=== PATIENT | female | born 1995 | race Caucasian/White ===

== ENCOUNTER 2020-05-31 08:51 | Outpatient (NON) | payer OTHER, SELFPAY ==
[2020-06-02 00:53] LABS: SARS-CoV-2 RNA PCR Negative
== END 2020-05-31 08:52 ==
PROVIDERS: Visit Provider Registered Nurse
DX: R05 Cough (principal); Z20.828 Contact with and (suspected) exposure to other viral communicable diseases
CPT/HCPCS: 87635; C9803; U0003

== ENCOUNTER 2021-02-08 11:17 | Emergency (ER) | payer OTHER, SELFPAY ==
--- NOTE | ~2021-02-08 | CT_ITS ---
EXAMINATION: CT abdomen pelvis w con INDICATION: Left flank pain TECHNIQUE: Computed tomographic images of the abdomen and pelvis were obtained after the administrati on of 100 cc of Omnipaque 350 intravenous contrast. The dose-length product (DLP) was 1676.53 mGy-cm. Automated exposure control and iterative reconstruction technique were employed. COMPARISON: None available FINDINGS: There is a 1.3 cm infrahilar nodule of the right lower lobe. There is subcarinal and right hilar lymphadenopathy. The heart size is normal. The liver, pancreas, gallbladder, and adrenal glands are normal. Hypoattenuating lesions of the spleen measuring up to 5 mm are too small to characterize but likely reflect cysts, hemangiomas, or lymphangiomas. There is a 2 mm stone of the distal left ur eter which causes mild hydroureteronephrosis. The appendix is normal. No pathologically enlarged abdo manan or pelvic lymph nodes are identified. There is no free intraperitoneal gas or evidence of bowel obstruction. The visualized osseous structures are unremarkable. IMPRESSION: 1. 2 mm stone of the distal left ureter causing mild hydroureteronephrosis. 2. Infrahilar nodule of the right lower lobe with subcarinal and right hilar lymphadenopathy, infecti ous versus malignant. Recommend follow-up with nonemergent CT of the chest. Reviewed, dictated and finalized at location A. IMPRESSION: 1. 2 mm stone of the distal left ureter causing mild hydroureteronephrosis. 2. Infrahilar nodule of the right lower lobe with subcarinal and right hilar ly mphadenopathy, infectious versus malignant. Recommend follow-up with nonemergen t CT of the chest.
[2021-02-08 11:21] VITALS: BP 155/84; PULSE 74; RESP 20; TEMP 36.8; O2SAT 98
[2021-02-08 11:47] LABS: Basophils Absolute Auto 0.1 K/mm3 (0.0-0.1); Basophils Percent Auto 0.4 % (0.2-1.2); Eosinophils Absolute Auto 0.3 K/mm3 (0-0.3); Eosinophils Percent Auto 2.5 % (0-4.4); Hemoglobin 13.1 g/dL (12.0-15.0); Immature Granulocyte Absolute 0.05 K/mm3 (0.00-0.031); Immature Granulocyte Percent A 0.4 % (0-0.5); Lymphocytes Percent Auto 34.3 % (18.3-44.2); Mean Corpuscular Hemoglobin 26.6 pg (26-34); Mean Corpuscular Volume 83.2 fl (80-100); Mean Platelet Volume 10.3 fl (7.4-10.4); Monocytes Absolute Auto 1.2 K/mm3 (0.1-0.6); Monocytes Percent Auto 9.6 % (2.6-8.5); Neutrophils Absolute Auto 6.5 K/mm3 (1.3-6.7); Neutrophils Percent Auto 52.8 % (45.5-73.1); Platelet Count Result 355 k/mm3 (150-375); Red Blood Count 4.93 M/mm3 (4.2-5.4); White Blood Count 12.2 K/mm3 (4.5-10.0)
[2021-02-08 12:01] LABS: Anion Gap 12 mmol/L (8-16); Blood Urea Nitrogen 14 mg/dL (7-17); Calcium 9.8 mg/dL (8.4-10.2); Carbon Dioxide 18 mmol/L (22-30); Chloride 109 mmol/L (98-107); Estimated CRCL calculation 135 ml/min; Estimated Glomerular Filt Rate > 60; Glucose 105 mg/dL (65-110); Potassium 3.9 mmol/L (3.4-5.0); Sodium 139 mmol/L (137-145)
[2021-02-08] MEDS: MORPHINE SULFATE (*CRX) 4 MG/ML INJ IV PUSH ×2 (12:20→13:35)
[2021-02-08] MEDS: ONDANSETRON INJ 4 MG/2 ML VIAL IV PUSH (12:20)
[2021-02-08] MEDS: FAMOTIDINE 20 MG/2 ML VIAL IV PUSH (12:20)
[2021-02-08] MEDS: SODIUM CHLORIDE 0.9% IV 1,000 ML 999 ML IV CONT ×2 (12:20→13:44)
[2021-02-08 13:15] LABS: Add Urine Microscopic? YES; Appearance Urine Clear (Clear); Bilirubin Urine Negative (Negative); Blood Urine 1+ (Negative); Color Urine Yellow (Yellow); Glucose Urine UA Negative (Negative); Ketones Urine Negative (Negative); Leukocyte Esterase Ur Negative LEU/UL (Negative); Mucus Urine Rare /lpf; Nitrate Urine Negative (Negative); Protein Urine Negative (Negative); RBC Urine 51-75 /hpf (0-2); Squamous Epithelial Cell Urine Few /hpf (Few); Urobilinogen Urine Negative mg/dL (<2.0)
[2021-02-08 13:24] LABS: Specific Grav Ur 1.058 (1.001-1.035)
--- NOTE | 2021-02-08 14:43 | ED.ABDPAIN ---
HPI - Abdominal Pain General Chief Complaint: Abdominal Pain Stated Complaint: abdominal pain/left flank pain Time Seen by Provider: 02/08/21 11:25 Source: patient Mode of arrival: ambulatory Limitations: no limitations History of Present Illness HPI narrative: Patient is a 25-year-old female who presents with left flank pain that began abruptly today she had felt fine yesterday denies similar occurrence in the past denies any fever chills does note nausea associated with the pain which is an intense left flank pain patient notes that nothing is made it better or worse presents in an uncomfortable appearance Related Data Allergies Allergy/AdvReac Type Severity Reaction Status Date / Time No Known Allergies Allergy Verified 02/08/21 11:23 Review of Systems Review of Systems: All systems reviewed & are unremarkable except as noted in HPI and below PMFSH Social History Social History (Updated 02/08/21 @ 14:45 by Rivas Perez PA-C) Smoking status: Never smoker Gender identity (if verbalized by the patient): Female Exam Narrative: Exam Narrative: GENERAL: Well-appearing, obese, uncomfortable and in no acute distress. HEAD: Normocephalic, atraumatic. EYES: PERRLA and EOMI. ENT: Nares clear, no rhinorrhea or epistaxis. Mucous membranes moist. CHEST: Clear to auscultation. No respiratory distress. No wheezes rales or rhonchi HEART: Regular rate and rhythm. No murmur heard. Normal peripheral pulses. ABDOMEN: Soft, nontender, nondistended EXTREMITIES: Normal range of motion. No edema. SKIN: Warm, dry, no rash. NEURO: No focal deficits. Alert and oriented x3. PSYCH: Normal mood and affect. Course Course Emergency Course: Patient presented with urolithiasis uncomfortable was medicated treated found of 2 mm stone will be discharged home with outpatient follow-up with urology felt appropriate for outpatient reevaluation given reasons to return Vital Signs Vital signs: Vital Signs Temperature 98.2 F 02/08/21 11:21 Pulse Rate 74 02/08/21 11:21 Respiratory Rate 20 02/08/21 11:21 Blood Pressure 155/84 H 02/08/21 11:21 Pulse Oximetry 98 02/08/21 11:21 Temperature 98.2 F 02/08/21 11:21 Pulse Rate 74 02/08/21 11:21 Respiratory Rate 20 02/08/21 11:21 Blood Pressure 155/84 H 02/08/21 11:21 Pulse Oximetry 98 02/08/21 11:21 MDM - Abdominal Pain MDM Narrative Medical decision making narrative: Patient with urolithiasis medicated hemodynamically stable felt appropriate for outpatient reevaluation agreeing with the plan provided with reasons to return Lab Data Result diagrams: 02/08/21 11:41 02/08/21 11:41 Labs: Lab Results 02/08/21 02/08/21 02/08/21 Range/Units 11:41 11:41 13:04 WBC 12.2 H (4.5-10.0) K/mm3 RBC 4.93 (4.2-5.4) M/mm3 Hgb 13.1 (12.0-15.0) g/dL Hct 41.0 (37.0-47.0) % MCV 83.2 (80-100) fl MCH 26.6 (26-34) pg MCHC 32.0 (32-36) g/dl RDW 14.0 (11.5-14.5) % Plt Count 355 (150-375) k/mm3 MPV 10.3 (7.4-10.4) fl Immature Gran % (Auto) 0.4 (0-0.5) % Neut % (Auto) 52.8 (45.5-73.1) % Lymph % (Auto) 34.3 (18.3-44.2) % [place] % (Auto) 9.6 H (2.6-8.5) % Eos % (Auto) 2.5 (0-4.4) % Baso % (Auto) 0.4 (0.2-1.2) % Lymph # (Auto) 4.20 H (0.9-3.2) K/mm3 [place] # (Auto) 1.2 H (0.1-0.6) K/mm3 Eos # (Auto) 0.3 (0-0.3) K/mm3 Baso # (Auto) 0.1 (0.0-0.1) K/mm3 Abs Immat Gran (auto) 0.05 H (0.00-0.031) K/mm3 Absolute Neuts (auto) 6.5 (1.3-6.7) K/mm3 Absolute Nucleated RBC 0.0 (0.0-0.012) K/mm3 Nucleated RBC % 0.0 (0.0-0.2) % Sodium 139 (137-145) mmol/L Potassium 3.9 (3.4-5.0) mmol/L Chloride 109 H (98-107) mmol/L Carbon Dioxide 18 L (22-30) mmol/L Anion Gap 12 (8-16) mmol/L BUN 14 (7-17) mg/dL Creatinine 0.80 (0.7-1.0) mg/dL Estim Creat Clear Calc 135 ml/min Estimated GFR > 60 (59 - ) Glucose 105 (6
[2021-02-08 15:08] VITALS: BP 142/86; PULSE 92; RESP 18; O2SAT 98
--- NOTE | 2021-02-24 15:02 | PC.NURSE ---
LATE ENTRY This note is being entered to document information to the patient's record. The following information was omitted on [02/08/21], by [Manuela Coffey RN]. [facility] stop time 1545, 100ml infused
== END 2021-02-08 15:10 | disposition home or self-care (01) ==
PROVIDERS: Emergency Provider Emergency Medicine; PCP Registered Nurse
DX: N13.2 Hydronephrosis with renal and ureteral calculous obstruction (principal)
CPT/HCPCS: 36415; 74177; 80048; 81001; 81025; 85025; 87086; 96374; 96375; 96376; 99284; J0131; J2270; J2405; J7030; Q9967

== ENCOUNTER 2021-02-27 13:17 | Outpatient (CLI) | payer OTHER, SELFPAY ==
--- NOTE | ~2021-02-27 | CT_ITS ---
EXAMINATION: 1. CT abdomen pelvis wo con 2. CT diagnostic chest w con DATE: 02/27/2021 14:23 INDICATION: Left ureteral stone. Right lung nodule. TECHNIQUE: Computed tomography (CT) of the chest was performed with 100 mL Omnipaque [address] of the abdomen and pelvis was performed without intravenous contrast. Automated exposur e control and iterative reconstruction technique were employed. The dose-length product was 1972 mGy- cm. COMPARISON: CT abdomen and pelvis 02/08/2021 FINDINGS: CT CHEST: There are groundglass opacities and nodules in mediobasal segment right lower lobe. No pleu ral effusion. The heart size is normal. No pericardial effusion. There is right hilar and subcarinal lymphadenopathy. For example, a right hilar node measures 2.8 x 2.1 cm. There is mild thoracic spondy losis. CT ABDOMEN AND PELVIS: The liver, gallbladder, spleen, pancreas, adrenal glands, and kidneys are norm al. There is no urolithiasis. There are no dilated loops of bowel. The appendix is normal. There are no pathologically enlarged lymph nodes. There is no free intraperitoneal fluid. 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 IMPRESSION: 1. Stable groundglass opacities and nodules in mediobasal segment right lower lobe, consistent with p neumonia. 2. Stable right hilar and subcarinal lymphadenopathy, which may be reactive lymphadenopathy or less l ikely malignancy. Consider noncontrast chest CT in 3 months. 3. No urolithiasis. Reviewed, dictated and finalized at location A. IMPRESSION: 1. Stable groundglass opacities and nodules in mediobasal segment right lower l obe, consistent with pneumonia. 2. Stable right hilar and subcarinal lymphadenopathy, which may be reactive lym phadenopathy or less likely malignancy. Consider noncontrast chest CT in 3 alek hs. 3. No urolithiasis.
== END 2021-02-27 13:18 ==
PROVIDERS: PCP Registered Nurse; Visit Provider Nurse Practitioner Adult Health
DX: N20.1 Calculus of ureter (principal); R91.1 Solitary pulmonary nodule; M47.814 Spondylosis without myelopathy or radiculopathy, thoracic region
CPT/HCPCS: 71260; 74176; Q9967

== ENCOUNTER 2021-03-22 17:16 | Emergency (ER) | payer OTHER, SELFPAY ==
--- NOTE | ~2021-03-22 | CT_ITS ---
EXAMINATION: CT abdomen pelvis w con DATE: 03/22/2021 18:39 INDICATION: Right lower quadrant abdominal pain TECHNIQUE: Computed tomography (CT) of the abdomen and pelvis was performed with 100 cc Omnipaque 350 intravenous contrast. Automated exposure control and iterative reconstruction technique were employe d. Exam dose: 1522.06 mGy-cm total exam DLP. COMPARISON: 02/27/2021 and 02/08/2021 CT abdomen pelvis FINDINGS: Stable 8 mm right lower lobe nodule and reticulonodular medial basilar right lower lobe inf iltrate since 02/08/2021. The lung bases are otherwise clear. Normal heart size. No pericardial or pleural effusion. The liver, gallbladder, bile ducts, pancreas and pancreatic duct are unremarkable. Borderline splenomegaly. Normal morphology of the adrenal glands. No renal mass lesion. There is incomplete rotation of the kidneys, the renal pelves directed anterior ly. No urinary tract calculus or hydroureteronephrosis. Normal caliber of the abdominal aorta. No intraperitoneal or retroperitoneal or pelvic mass lesion or adenopathy or ascites. The urinary bladder is relatively evacuated, essentially unremarkable. The uterus and adnexal areas a ppear normal. No evidence of appendicitis. No bowel obstruction, bowel wall thickening, pneumatosis or intraperiton eal free air. Small fat-containing umbilical hernia. Right L5 pars interarticularis defect. No suspicious osteolytic or osteoblastic lesions. IMPRESSION: No evidence of appendicitis Borderline splenomegaly Right L5 pars interarticularis defect Stable 8 mm right lower lobe nodule and reticulonodular medial basilar right lower lobe infiltrates s trina 02/08/2021. Reviewed, dictated and finalized at Location [facility]. Reviewed, dictated and finalized at location A. IMPRESSION: No evidence of appendicitis Borderline splenomegaly Right L5 pars interarticularis defect Stable 8 mm right lower lobe nodule and reticulonodular medial basilar right lo wer lobe infiltrates since 02/08/2021.
[2021-03-22 17:17] VITALS: BP 155/88; PULSE 73; RESP 18; TEMP 36.6; O2SAT 100
[2021-03-22 17:32] LABS: Basophils Percent Auto 0.3 % (0.2-1.2); Eosinophils Absolute Auto 0.2 K/mm3 (0-0.3); Eosinophils Percent Auto 1.6 % (0-4.4); Hematocrit 39.7 % (37.0-47.0); Hemoglobin 13.1 g/dL (12.0-15.0); Immature Granulocyte Absolute 0.02 K/mm3 (0.00-0.031); Immature Granulocyte Percent A 0.2 % (0-0.5); Lymphocytes Absolute Auto 2.51 K/mm3 (0.9-3.2); Lymphocytes Percent Auto 23.8 % (18.3-44.2); Mean Corpuscular Hemoglobin 27.1 pg (26-34); Mean Platelet Volume 10.5 fl (7.4-10.4); Monocytes Absolute Auto 1.1 K/mm3 (0.1-0.6); Neutrophils Absolute Auto 6.8 K/mm3 (1.3-6.7); Neutrophils Percent Auto 64.1 % (45.5-73.1); Platelet Count Result 282 k/mm3 (150-375); Red Blood Count 4.84 M/mm3 (4.2-5.4); Red Cell Distribution Width 13.7 % (11.5-14.5); White Blood Count 10.5 K/mm3 (4.5-10.0)
[2021-03-22 17:45] LABS: Alanine Aminotransferase 29 U/L (4-35); Albumin Level 4.2 g/dL (3.5-5.1); Alkaline Phosphatase 122 U/L (38-126); Anion Gap 10 mmol/L (8-16); Aspartate Amino Transferase 26 U/L (14-36); Bilirubin,Total 0.4 mg/dL (0.2-1.3); Blood Urea Nitrogen 12 mg/dL (7-17); Calcium 9.4 mg/dL (8.4-10.2); Carbon Dioxide 19 mmol/L (22-30); Chloride 111 mmol/L (98-107); Estimated CRCL calculation 159 ml/min; Estimated Glomerular Filt Rate > 60; Glucose 103 mg/dL (65-110); Lipase 55 U/L (23-300); Potassium 3.8 mmol/L (3.4-5.0); Sodium 140 mmol/L (137-145)
[2021-03-22 18:25] LABS: Add Urine Microscopic? YES; Appearance Urine Cloudy (Clear); Bilirubin Urine Negative (Negative); Blood Urine Negative (Negative); Color Urine Yellow (Yellow); Glucose Urine UA Negative (Negative); Ketones Urine Negative (Negative); Leukocyte Esterase Ur Trace LEU/UL (Negative); Nitrate Urine Negative (Negative); Protein Urine Negative (Negative); Urobilinogen Urine Negative mg/dL (<2.0)
--- NOTE | 2021-03-22 18:26 | ED.ABDPAIN ---
HPI - Abdominal Pain General Chief Complaint: Abdominal Pain Stated Complaint: right side pain Time Seen by Provider: 03/22/21 17:58 Source: patient Mode of arrival: ambulatory Limitations: no limitations History of Present Illness HPI narrative: Patient is a 25-year-old female complaining of right upper quadrant pain, radiating to right flank, 7 out of 10 sharp, started last night. Patient denies any chest pain, shortness of breath, nausea, vomiting, diarrhea, fever, chills or urinary symptoms. Patient does admit to history of kidney stones but states that this pain is different. Related Data Allergies Allergy/AdvReac Type Severity Reaction Status Date / Time No Known Allergies Allergy Verified 03/22/21 17:35 Review of Systems Review of Systems: All systems reviewed & are unremarkable except as noted in HPI and below Constitutional: Constitutional: Denies body ache(s), Denies chills, Denies excessive sweating, Denies fatigue, Denies fever(s), Denies headache(s), Denies lethargy, Denies malaise, Denies weakness and Denies weight loss Eyes: Eyes: Denies blurry vision, Denies change in vision and Denies loss of vision ENT: Denies dizziness, Denies ear discharge, Denies headache(s), Denies lip swelling, Denies epistaxis, Denies nasal congestion, Denies neck pain, Denies throat swelling and Denies tongue swelling Cardiovascular: Cardiovascular: Denies chest pain, Denies chest pain at rest, Denies chest pain with activity, Denies diaphoresis, Denies rapid heart rate, Denies edema, Denies irregular heart rhythm, Denies lightheadedness, Denies palpitations, Denies dyspnea and Denies dyspnea on exertion Respiratory: Respiratory: Denies chest congestion, Denies cough, Denies hemoptysis, Denies dyspnea and Denies dyspnea on exertion Gastrointestinal: Gastrointestinal: Denies melena, Denies hematochezia, Denies diarrhea, Denies nausea, Denies vomiting and Denies hematemesis Musculoskeletal: Musculoskeletal: Denies abnormal gait, Denies deformity, Denies joint swelling, Denies limited range of motion, Denies neck pain and Denies numbness Neurologic: Denies Abnormal speech present, Denies abnormal gait, Denies confusion, Denies dizziness, Denies headache(s), Denies focal weakness, Denies loss of vision, Denies numbness, Denies Other visual disturbances, Denies Sensory deficit (Neuro) and Denies weakness Psychiatric: Psychiatric: Denies confusion, Denies depression, Denies auditory hallucinations, Denies homicidal ideation and Denies suicidal ideation Endocrine: Endocrine: Denies cold intolerance, Denies excessive sweating, Denies fatigue, Denies heat intolerance and Denies palpitations Hematologic/Lymphatic: Hematologic/Lymphatic: Denies easy bleeding and Denies easy bruising Allergic/Immunologic: Allergic/Immunologic: Denies lip swelling, Denies throat swelling and Denies tongue swelling [facility] Social History Social History (Updated 02/08/21 @ 14:45 by Rivas Perez PA-C) Smoking status: Never smoker Gender identity (if verbalized by the patient): Female Comments Past medical history: Idiopathic intracranial hypertension Family history: Hypertension Social history: Non-smoker no EtOH or drug use Exam Const: General: cooperative, healthy appearing, comfortable, no acute distress, well developed, alert and awake; No confusion Orientation/consciousness: oriented to person, oriented to place, oriented to time, patient oriented x3 and No confusion Limitations: no limitations HENMT: Head: normal to inspection, normocephalic and atraumatic Ears: hearing grossly normal bilaterally, TM normal on the right and TM normal on the left General nose exam: Normal external nose present, Normal nares present and No nasal discharge present Face and sinus: normal facial exam Mouth: Yes Normal oral and palatal mucosa present, Yes lip normal, Yes tongue normal and Yes oropharynx normal Throat: posterior oropharynx normal, tonsils normal and uvula
--- NOTE | 2021-03-22 18:31 | PC.NURSE ---
Pt off floor to CT scan
[2021-03-22] MEDS: KETOROLAC 30 MG/ML VIAL (*BKC) IV PUSH (18:52)
[2021-03-22 20:25] VITALS: BP 110/51; PULSE 71; RESP 16; O2SAT 100
[2021-03-22] MEDS: HYDROcodone/acetaminophen (*CRX) 5-325 MG TABLET 1 TAB PO (21:04)
[2021-03-22 21:10] VITALS: BP 131/76; PULSE 72; RESP 18; TEMP 36.6; O2SAT 99
== END 2021-03-22 21:18 | disposition home or self-care (01) ==
PROVIDERS: Emergency Provider Emergency Medicine; PCP Registered Nurse
DX: R10.11 Right upper quadrant pain (principal); G93.2 Benign intracranial hypertension; R16.1 Splenomegaly, not elsewhere classified; R91.8 Other nonspecific abnormal finding of lung field
CPT/HCPCS: 36415; 74177; 80053; 81001; 81025; 83690; 85025; 96374; 99284; A9270; J1885; Q9967

== ENCOUNTER 2021-03-24 08:08 | Emergency (ER) | payer OTHER, SELFPAY ==
--- NOTE | ~2021-03-24 | XR_ITS ---
EXAMINATION: XR chest 1V portable EXAM DATE: 03/24/2021 08:59 INDICATION: Right upper quadrant pain . TECHNIQUE: Portable AP frontal chest x-ray was obtained. Comparison is made to prior examination from 01/22/2012. FINDINGS: The lungs are clear. There are no pleural effusions. Cardiomediastinal silhouette is norm al. There is no pneumothorax suspected. The bones and soft tissues are unremarkable. IMPRESSION: Normal chest x-ray exam. Reviewed, dictated and finalized at location D. IMPRESSION: Normal chest x-ray exam.
--- NOTE | ~2021-03-24 | US_ITS ---
EXAMINATION: US abdomen limited DATE: 03/24/2021 09:20 INDICATION: Right upper quadrant pain TECHNIQUE: Multiple grayscale and Doppler ultrasound images of the abdomen were obtained. COMPARISON: CT, 03/22/2021 FINDINGS: Bowel gas obscures visualization of the pancreas. The visualized portions of the pancreas a re unremarkable. The liver is normal with normal echogenicity and echotexture. No surface nodularity. Normal hepatopetal flow in the main portal vein. The gallbladder is normal with no abnormal wall thi ckening, pericholecystic fluid or stones. The normal common bile duct measures 5 mm. Sonographic Murp hy sign is positive. IMPRESSION: 1. Positive sonographic Hartley sign without additional findings of cholecystitis. Reviewed, dictated and finalized at location A. IMPRESSION: 1. Positive sonographic Hartley sign without additional findings of cholecystiti s.
--- NOTE | ~2021-03-24 | CT_ITS ---
EXAMINATION: CT abdomen pelvis w con EXAM DATE: 03/24/2021 11:00 INDICATION: Right upper abdominal pain . Pain has progressed since Tuesday. TECHNIQUE: Spiral CT of the abdomen and pelvis was performed following intravenous injection of 100 m L Omnipaque 350. Axial, coronal and sagittal images of the abdomen and pelvis were reviewed. The do se-length product (DLP) for this examination was 1694.59 mGy-cm. The exposure was tailored according to patient size (auto mA exposure control), and iterative reconstruction (ASIR) was used as addition al dose reduction technique. Comparison is made to prior examination from 02/27/2021. FINDINGS: The liver, spleen, adrenal glands and pancreas are unremarkable. Gallbladder is unremarkab le. No biliary obstruction. Portal and splenic veins are patent. Kidneys enhance symmetrically. T here is no hydronephrosis. The uterus is unremarkable. The bladder is unremarkable. There is no retroperitoneal or pelvic lymphadenopathy. The appendix is normal. The stomach and small bowel are unremarkable. There is expected amount of c olonic stool. No free intraperitoneal gas. The heart is normal in size. There are no pericardial or pleural effusions. 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 Again is pathologically enlarged right infrahilar lymph node measuring 1.9 x 2.2 cm. Could be reactiv e or sarcoidosis but lymphoma or other malignancy not excludable. Small amount of infrahilar airspace disease again noted. Recommend 3 month follow-up chest CT. IMPRESSION: 1. Persistent pathologically enlarged right infrahilar lymph. Could be reactive or sarcoidosis but 3 month follow-up indicated. Small amount of right infrahilar airspace disease unchanged. 2. No acute intra-abdominal findings. Reviewed, dictated and finalized at location B. IMPRESSION: 1. Persistent pathologically enlarged right infrahilar lymph. Could be reactiv e or sarcoidosis but 3 month follow-up indicated. Small amount of right infrahi lar airspace disease unchanged. 2. No acute intra-abdominal findings.
[2021-03-24 08:10] VITALS: BP 157/95; PULSE 92; RESP 18; TEMP 36.3; O2SAT 99
--- NOTE | 2021-03-24 08:51 | ED.ABDPAIN ---
HPI - Abdominal Pain General Chief Complaint: Abdominal Pain Stated Complaint: Abd Pain Time Seen by Provider: 03/24/21 08:24 Source: patient and family Mode of arrival: ambulatory Limitations: no limitations History of Present Illness HPI narrative: Patient is 25 years old white female presented to the ED with right upper quadrant pain started 4 days ago, work-up in our emergency room was insignificant for any acute abnormality. CAT scan showed no evidence of intra-abdominal abnormality at that time. Patient reports the pain is still there, worse with deep breathing,, get better with certain position like sitting up in upright position. Patient denies any fever, chills, vomiting, diarrhea, constipation, urinary symptoms, radiation of pain, shortness of breath or chest pain. Patient reports dry heaves Related Data Allergies Allergy/AdvReac Type Severity Reaction Status Date / Time No Known Allergies Allergy Verified 03/24/21 08:19 Review of Systems Review of Systems: CONSTITUTIONAL: Denies fever, chills, or sweats. EYES: Denies visual changes, redness, or discharge. ENT: Denies rhinorrhea, congestion, sore throat, or otalgia. CARDIOVASCULAR: Denies chest pain, palpitations, or edema. RESPIRATORY: Denies cough or dyspnea. GASTROINTESTINAL: Denies abdominal pain, nausea, vomiting, or diarrhea. GENITOURINARY: Denies dysuria or hematuria. SKIN: Denies rash or itching. MUSCULOSKELETAL: Denies back pain, joint pain, or myalgia. NEUROLOGIC: Denies headache, numbness, or weakness. PSYCHIATRIC: Denies anxiety or depression. PMFSH Social History Social History Smoking status: Never smoker Gender identity (if verbalized by the patient): Female Exam Narrative: General appearance: Well-developed, well-nourished Skin: Normal color Head: Normocephalic, nontraumatic Eyes: Clear conjunctiva ENT: Oropharynx normal, ears normal, nose normal Neck: Supple, nontender Chest and respiratory: Airway patent, no respiratory distress, no accessory muscle use Heart: Regular rate/rhythm Abdomen: Soft, diffuse tenderness epigastric and right upper quadrant area, no bruises, no swelling no rash Vascular: Normal peripheral pulses, normal capillary refill. Musculoskeletal: Normal range of motion, nontender back Neurologic: Alert and oriented ?3, [employer] is normal as tested, no gross motor deficit Course Course Emergency Course: Improving Vital Signs Vital signs: Vital Signs Temperature 36.3 C L 03/24/21 08:10 Pulse Rate 92 03/24/21 08:10 Respiratory Rate 18 03/24/21 08:10 Blood Pressure 157/95 H 03/24/21 08:10 Pulse Oximetry 99 03/24/21 08:10 Temperature 36.3 C L 03/24/21 08:10 Pulse Rate 92 03/24/21 08:10 Respiratory Rate 18 03/24/21 08:10 Blood Pressure 157/95 H 03/24/21 08:10 Pulse Oximetry 99 03/24/21 08:10 MDM - Abdominal Pain MDM Narrative Medical decision making narrative: Patient presents with right upper quadrant pain. My concern is right lower lobe pneumonia, pulmonary embolism, cholecystitis, diverticulitis, constipation, pyelonephritis,. My Labs, ordered, gallbladder ultrasound ordered. Further plan to follow. Work-up showed no acute abnormality to explain patient condition. Musculoskeletal pain is very concerning. I plan to discharge patient on Flexeril and naproxen. Also to recommend patient follow-up with her family physician. The possibility of sarcoidosis. Differential Diagnosis Differential diagnosis: Likely calculus of kidney, constipation, diverticulitis and pancreatitis Lab Data Result diagrams: 03/24/21 09:02 03/24/21 09:02
--- NOTE | 2021-03-24 09:00 | PC.NURSE ---
pt reporting she peed before I came in . unable to provide urine specimen at this time.
[2021-03-24 09:10] LABS: Basophils Percent Auto 0.3 % (0.2-1.2); Eosinophils Absolute Auto 0.1 K/mm3 (0-0.3); Eosinophils Percent Auto 1.2 % (0-4.4); Hematocrit 42.1 % (37.0-47.0); Hemoglobin 13.6 g/dL (12.0-15.0); Immature Granulocyte Absolute 0.04 K/mm3 (0.00-0.031); Immature Granulocyte Percent A 0.4 % (0-0.5); Lymphocytes Absolute Auto 2.16 K/mm3 (0.9-3.2); Lymphocytes Percent Auto 20.5 % (18.3-44.2); Mean Corpuscular HGB Conc 32.3 g/dl (32-36); Mean Corpuscular Hemoglobin 27.3 pg (26-34); Mean Corpuscular Volume 84.5 fl (80-100); Mean Platelet Volume 10.6 fl (7.4-10.4); Monocytes Absolute Auto 0.9 K/mm3 (0.1-0.6); Monocytes Percent Auto 8.3 % (2.6-8.5); Neutrophils Absolute Auto 7.3 K/mm3 (1.3-6.7); Neutrophils Percent Auto 69.3 % (45.5-73.1); Platelet Count Result 290 k/mm3 (150-375); Red Blood Count 4.98 M/mm3 (4.2-5.4); Red Cell Distribution Width 13.5 % (11.5-14.5); White Blood Count 10.6 K/mm3 (4.5-10.0)
[2021-03-24 09:25] LABS: Alanine Aminotransferase 25 U/L (4-35); Albumin Level 4.5 g/dL (3.5-5.1); Alkaline Phosphatase 132 U/L (38-126); Anion Gap 10 mmol/L (8-16); Aspartate Amino Transferase 27 U/L (14-36); Bilirubin,Total 0.6 mg/dL (0.2-1.3); Blood Urea Nitrogen 12 mg/dL (7-17); Calcium 9.4 mg/dL (8.4-10.2); Carbon Dioxide 20 mmol/L (22-30); Chloride 110 mmol/L (98-107); D Dimer 0.45 ug/mL (<0.48); Estimated CRCL calculation 138 ml/min; Estimated Glomerular Filt Rate > 60; Glucose 105 mg/dL (65-110); Lipase 54 U/L (23-300); Sodium 140 mmol/L (137-145)
[2021-03-24] MEDS: ONDANSETRON INJ 4 MG/2 ML VIAL IV PUSH (09:29)
[2021-03-24] MEDS: SODIUM CHLORIDE 0.9% IV 1,000 ML 999 ML IV CONT (09:29)
[2021-03-24] MEDS: HYDROmorphone HCL INJ (*CRX) 1 MG/ML SYR 0.5 MG IV PUSH (09:29)
[2021-03-24 11:29] LABS: Add Urine Microscopic? NO; Appearance Urine Clear (Clear); Bilirubin Urine Negative (Negative); Blood Urine Negative (Negative); Color Urine Yellow (Yellow); Glucose Urine UA Negative (Negative); Ketones Urine Negative (Negative); Leukocyte Esterase Ur Negative LEU/UL (Negative); Nitrate Urine Negative (Negative); Protein Urine Negative (Negative); Specific Grav Ur 1.017 (1.001-1.035); Urobilinogen Urine Negative mg/dL (<2.0)
[2021-03-24] MEDS: KETOROLAC 30 MG/ML VIAL (*BKC) IV PUSH (12:07)
[2021-03-24 12:16] VITALS: BP 125/85; PULSE 80; RESP 16; O2SAT 100
== END 2021-03-24 12:17 | disposition home or self-care (01) ==
PROVIDERS: Emergency Provider Emergency Medicine; PCP Registered Nurse
DX: R91.1 Solitary pulmonary nodule (principal); R10.9 Unspecified abdominal pain
CPT/HCPCS: 36415; 71045; 74177; 76705; 80053; 81003; 81025; 83690; 85025; 85380; 96361; 96374; 96375; 99284; J1170; J1885; J2405; J7030; Q9967

== ENCOUNTER → 2021-07-17 00:38 | Outpatient (CLI) | payer OTHER, SELFPAY ==
[2021-07-17 19:19] LABS: SARS-CoV-2 RNA PCR Positive
== END ==
PROVIDERS: PCP Registered Nurse; Visit Provider Registered Nurse
DX: U07.1 COVID-19 (principal)
CPT/HCPCS: C9803; U0003; U0005

== ENCOUNTER 2021-08-11 15:24 | Outpatient (CLI) | payer OTHER, SELFPAY ==
--- NOTE | ~2021-08-11 | US_ITS ---
EXAMINATION: US OB <=14 wk fetus w TV DATE: 08/11/2021 16:31 INDICATION: Viability. TECHNIQUE: Real-time transabdominal and transvaginal pelvic ultrasound was performed. COMPARISON: None. FINDINGS: TRANSABDOMINAL ULTRASOUND: The uterus measures 10.7 x 6.3 x 6.4 cm. TRANSVAGINAL ULTRASOUND: There is an intrauterine gestational sac. A yolk sac is identified. The fet al crown rump length measures 2.7 cm, which correlates with an estimated gestational age of 9 weeks a nd 4 day(s) (+/-) 6 day(s). heart motion is identified measuring 162 beats per minute (bpm) by M-mode Doppler. The right ovary measures 3.0 x 1.9 x 3.7 cm. The left ovary is not visualized. There is no free fluid in the pelvis. IMPRESSION: 1. Single living intrauterine gestation with estimated date of delivery of 03/12/22. Reviewed, dictated and finalized at location A. COREMAKER IMPRESSION: 1. Single living intrauterine gestation with estimated date of delivery of 02/22 04/15.
== END 2021-08-11 15:25 | disposition home or self-care (01) ==
LOC: ANHIMG 15:29
PROVIDERS: PCP Registered Nurse; Visit Provider Nurse Practitioner
DX: Z36.9 Encounter for antenatal screening, unspecified (principal); Z3A.00 Weeks of gestation of pregnancy not specified
CPT/HCPCS: 76801; 76817

== ENCOUNTER 2021-09-28 08:21 | Outpatient (CLI) | payer OTHER, SELFPAY ==
--- NOTE | ~2021-09-28 | US_ITS ---
EXAMINATION: US right upper quadrant DATE: 09/28/2021 08:48 INDICATION: Right upper quadrant pain TECHNIQUE: Multiple grayscale and Doppler ultrasound images of the abdomen were obtained. COMPARISON: CT, 03/24/2021 FINDINGS: Bowel gas obscures visualization of the pancreas. The visualized portions of the pancreas a re unremarkable. The liver is normal with normal echogenicity and echotexture. No surface nodularity. Normal hepatopetal flow in the main portal vein. The gallbladder is normal with no abnormal wall thi ckening, pericholecystic fluid or stones. The normal common bile duct measures 3 mm. There was no son ographic Hartley sign. IMPRESSION: 1. Normal sonographic study of the gallbladder. Reviewed, dictated and finalized at location B. IC SPEAKING COACH
== END 2021-09-28 08:22 | disposition home or self-care (01) ==
PROVIDERS: PCP Registered Nurse; Visit Provider Registered Nurse
DX: R10.11 Right upper quadrant pain (principal)
CPT/HCPCS: 76705

== ENCOUNTER 2021-10-05 15:18 | Outpatient (CLI) | payer OTHER, SELFPAY ==
--- NOTE | ~2021-10-05 | US_ITS ---
EXAMINATION: US OB /maternal detail DATE: 10/05/2021 16:25 INDICATION: survey TECHNIQUE: Multiple obstetric sonographic images performed. FINDINGS: Comparison to multiple prior studies sequentially, with oldest reviewed study dated 022. There is a single living fetus in variable presentation. The placenta is posterior without placenta previa. Amniotic fluid volume is normal. cardiac activity and movement is noted with a heart rate of 151 beats per minute. survey is limited for evaluation of the cerebellum, heart, nuchal fold, upper lobe and bladder. The following anatomy was identified as normal: 3 vessel cord cord insertion kidneys stomach spine diaphragm ventricles cisterna magna The following biometric data were obtained: BPD: 37mm corresponds to gestational age 17 weeks 2 days. Head circumference: 140 mm corresponds to gestational age 17 weeks 2 days. Abdominal circumference: 117 mm corresponds to gestational age 17 weeks 3 days. Femur length: 24 mm corresponds to gestational age 17 weeks 2 days. Head circumference to abdominal circumference ratio: 1.19 (normal range for expected gestational age is 1.07-1.29). Estimated weight: 192 grams +/- 29 grams using Hadlock method. IMPRESSION: 1: Single living intrauterine with an estimated gestational age of 17weeks 3days by initial ultrasound measurements, with an EDC of 03/12/2022 in variable presentation. 2. Limited survey for evaluation of the cerebellum, nuchal fold, upper lip, heart and bladder. The remainder of the survey is unremarkable. Recommend attention to the structures on follow-up exam ination.. Reviewed, dictated and finalized at location B. IMPRESSION: 1: Single living intrauterine with an estimated gestational age of 17 weeks 3days by initial ultrasound measurements, with an EDC of 03/12/2022 in melvi iable presentation. 2. Limited survey for evaluation of the cerebellum, nuchal fold, upper l ip, heart and bladder. The remainder of the survey is unremarkable. Recommend a ttention to the structures on follow-up examination..
== END 2021-10-05 15:19 ==
PROVIDERS: Visit Provider Obstetrics & Gynecology Gynecology
DX: Z36.9 Encounter for antenatal screening, unspecified (principal); Z3A.17 17 weeks gestation of pregnancy
CPT/HCPCS: 76805

== ENCOUNTER 2021-11-02 16:13 | Outpatient (CLI) | payer OTHER, SELFPAY ==
--- NOTE | ~2021-11-02 | US_ITS ---
EXAMINATION: US OB limited DATE: 11/02/2021 17:56 INDICATION: Incomplete anatomic survey during second trimester TECHNIQUE: Real-time ultrasound of the pelvis was performed. The interpreting radiologist was not pre sent for the study. COMPARISON: 10/05/2021 FINDINGS: There is a single living fetus in breech presentation. The placenta is posterior. car diac activity and movement are noted. heart rate is 154 beats per minute (bpm). The amnio tic fluid index is subjectively normal. The cerebellum, cisterna magna, nuchal fold, bladder, and upp er lip appear normal. A four-chamber heart is noted. IMPRESSION: 1. Single living fetus in breech presentation. 2. Remaining visualized anatomy appears normal. Reviewed, dictated and finalized at location A.
== END 2021-11-02 16:14 | disposition home or self-care (01) ==
PROVIDERS: PCP Registered Nurse; Visit Provider Obstetrics & Gynecology Gynecology
DX: Z36.9 Encounter for antenatal screening, unspecified (principal); Z3A.00 Weeks of gestation of pregnancy not specified
CPT/HCPCS: 76815

== ENCOUNTER 2021-12-09 11:52 | Outpatient (CLI) | payer OTHER, SELFPAY ==
--- NOTE | ~2021-12-09 | US_ITS ---
EXAMINATION: US venous doppler [facility] DATE: 12/09/2021 12:31 INDICATION: Left lower limb pain. TECHNIQUE: Grayscale ultrasound images without and with compression and Doppler ultrasound images of the bilateral lower extremity veins were obtained. COMPARISON: None. FINDINGS: The visualized portions of right common femoral vein, profunda (deep) femoral vein, femoral vein, pop liteal vein, peroneal veins, posterior tibial veins, and greater saphenous vein outflow are patent. The visualized portions of left common femoral vein, profunda femoral vein, femoral vein, popliteal v ein, peroneal veins, posterior tibial veins, and greater saphenous vein outflow are patent. IMPRESSION: 1. No deep venous thrombosis. Reviewed, dictated and finalized at location B.
== END 2021-12-09 11:53 | disposition home or self-care (01) ==
LOC: ANHIMG 11:56
PROVIDERS: PCP Registered Nurse; Visit Provider Advanced Practice Midwife
DX: R10.32 Left lower quadrant pain (principal); R60.9 Edema, unspecified
CPT/HCPCS: 93970

== ENCOUNTER 2022-01-13 15:14 | Outpatient (CLI) | payer OTHER, SELFPAY ==
--- NOTE | ~2022-01-13 | US_ITS ---
EXAMINATION: US OB follow up DATE: 01/13/2022 16:05 INDICATION: Estimated size less than expected for estimated gestational age during third trimes ter . TECHNIQUE: Real-time ultrasound of the pelvis was performed. The interpreting radiologist was not pre sent for the study. COMPARISON: 08/11/2021 FINDINGS: There is a single living fetus in vertex presentation. The placenta is posterior. heart rate i s 132 beats per minute (bpm). The amniotic fluid index is 19.0 cm, which is normal (5th%-95%: 8.6-24 .2 cm at 32 weeks estimated gestational age). The following biometric data were obtained: BPD: 8.2 cm -> 32 weeks 6 days Head circumference: 30.9 cm -> 34 weeks 3 days Abdominal circumference: 31.2 cm -> 35 weeks 1 days Femur length: 6.3 cm -> 32 weeks 4 days These measurements are concordant. Head circumference to abdominal circumference ratio: 0.99 (normal range 0.95-1.11). Estimated weight: 2366 g (+/-) 355 g or 5 lbs. 3 oz. (+/-) 13 oz. IMPRESSION: 1. Single living fetus in vertex presentation with heart rate of 132 bpm. 2. Normal amniotic fluid index of 19.0 cm. 3. Estimated weight is >97th percentile by Hadlock criteria when 10/10/2021 is used as the estim ated date of delivery (KHADAR) based upon earliest ultrasound at this institution on 08/11/2021. Please c orrelate with clinical information or earlier ultrasounds for most accurate KHADAR. Reviewed, dictated and finalized at location B. IMPRESSION: 1. Single living fetus in vertex presentation with heart rate of 132 bpm. 2. Normal amniotic fluid index of 19.0 cm. 3. Estimated weight is >97th percentile by Hadlock criteria when 2 is used as the estimated date of delivery (KHADAR) based upon earliest ultrasoun d at this institution on 08/11/2021. Please correlate with clinical information or earlier ultrasounds for most accurate KHADAR.
== END 2022-01-13 15:15 | disposition home or self-care (01) ==
LOC: ANHIMG 15:15
PROVIDERS: PCP Registered Nurse; Visit Provider Obstetrics & Gynecology Gynecology
DX: O36.63X0 Maternal care for excessive fetal growth, third trimester, not applicable or unspecified (principal); Z3A.00 Weeks of gestation of pregnancy not specified
CPT/HCPCS: 76816

== ENCOUNTER → 2022-02-25 13:22 | Outpatient (CLI) | payer OTHER, SELFPAY ==
--- NOTE | ~2022-02-25 | US_ITS ---
EXAMINATION: US OB follow up DATE: 02/25/2022 13:54 INDICATION: Estimated size greater than expected for estimated gestational age TECHNIQUE: Real-time ultrasound of the pelvis was performed. The interpreting radiologist was not pre sent for the study. COMPARISON: None. FINDINGS: There is a single living fetus in vertex presentation. The placenta is posterior. heart rate i s 146 beats per minute (bpm). The amniotic fluid index is 20.1 cm, which is normal (5th%-95%: 7.5-3 4.4 cm at the 7 weeks estimated gestational age). The following biometric data were obtained: BPD: 9.7 cm -> 39 weeks 5 days Head circumference: 35.3 cm -> 41 weeks 2 days Abdominal circumference: 35.7 cm -> 39 weeks 4 days Femur length: 7. cm -> 438 weeks 0 days These measurements are concordant. Head circumference to abdominal circumference ratio: 0.99 (normal range 0.89-1.04). Estimated weight: 3796 g (+/-) 569 g or 8 lbs. 6 oz. (+/-) 1 lbs. 4 oz. IMPRESSION: 1. Single living fetus in vertex presentation with heart rate of 146 bpm. 2. Normal amniotic fluid index of 20.1 cm. 3. Estimated weight is 93rd percentile by Hadlock criteria when 03/12/2022 is used as the estima shannon date of delivery (KHADAR). Please correlate with clinical information or earlier ultrasounds for mos t accurate KHADAR. Reviewed, dictated and finalized at location A. IMPRESSION: 1. Single living fetus in vertex presentation with heart rate of 146 bpm. 2. Normal amniotic fluid index of 20.1 cm. 3. Estimated weight is 93rd percentile by Hadlock criteria when 03/12/2022 is used as the estimated date of delivery (KHADAR). Please correlate with clinica l information or earlier ultrasounds for most accurate KHADAR.
== END ==
PROVIDERS: PCP Registered Nurse; Visit Provider Obstetrics & Gynecology Gynecology
DX: O26.843 Uterine size-date discrepancy, third trimester (principal); Z3A.35 35 weeks gestation of pregnancy
CPT/HCPCS: 76816

== ENCOUNTER 2022-03-01 13:42 | Outpatient (RCR) | payer OTHER, SELFPAY ==
[2022-01-11 12:50] VITALS: BP 127/58; PULSE 100
[2022-01-14 16:39] VITALS: BP 131/68; PULSE 98
[2022-01-18 17:09] VITALS: BP 126/66; PULSE 89
[2022-01-22 16:29] VITALS: BP 113/53; PULSE 96
[2022-01-28 16:55] VITALS: BP 120/57; PULSE 99
[2022-02-04 17:40] VITALS: BP 136/65; PULSE 94
[2022-02-08 16:53] VITALS: BP 110/58; PULSE 102
[2022-02-15 16:14] VITALS: BP 102/43; PULSE 106
[2022-02-19 15:50] VITALS: BP 116/63; PULSE 91
[2022-02-22 16:39] VITALS: BP 125/58; PULSE 95
[2022-02-26 15:04] VITALS: BP 102/53; PULSE 86
[2022-03-01 15:13] VITALS: BP 138/64; PULSE 88
== END 2022-03-12 15:03 | disposition home or self-care (01) ==
LOC: ANHOBOP 13:42
PROVIDERS: PCP Registered Nurse; Visit Provider Obstetrics & Gynecology Gynecology
DX: O98.513 Other viral diseases complicating pregnancy, third trimester (principal); U07.1 COVID-19; Z3A.32 32 weeks gestation of pregnancy; Z3A.35 35 weeks gestation of pregnancy; Z3A.37 37 weeks gestation of pregnancy
CPT/HCPCS: 59025; J2274; J3010

== ENCOUNTER 2022-03-04 17:10 | Inpatient (IN) | payer OTHER, SELFPAY ==
[2022-03-04] VITALS (12 sets, daily range): BP systolic 120–150; BP diastolic 70–83; PULSE 84–118; RESP 18; TEMP 36.4–36.6; BMI 59.3
--- NOTE | 2022-03-04 17:36 | LDADM ---
This patient, Trish Ho, was admitted to Labor/Delivery/Recovery 106 on 03/04/22 at 17:10. Plans for labor, pain management and were discussed with patient. Patient/family oriented to hospital policies and general routines including ID bracelet, bed and alarms, visiting hours, pain management, procedures, bathroom and other care routines, personal items, smoking policy, room service/diet and guest tray routines, security routines, and visiting hours. Patient/Family are encouraged to report perceived risks to care and to ask questions if they do not understand what they are told or what they should do. See OBIX for further documentation.
[2022-03-04] MEDS: DINOPROSTONE 10 MG VAG INSERT VAGINAL (17:45)
[2022-03-04 17:46] LABS: Basophils Percent Auto 0.1 % (0.2-1.2); Eosinophils Absolute Auto 0.1 K/mm3 (0-0.3); Eosinophils Percent Auto 0.6 % (0-4.4); Hematocrit 33.5 % (37.0-47.0); Hemoglobin 10.6 g/dL (12.0-15.0); Immature Granulocyte Absolute 0.12 K/mm3 (0.00-0.031); Immature Granulocyte Percent A 0.8 % (0-0.5); Lymphocytes Absolute Auto 1.82 K/mm3 (0.9-3.2); Lymphocytes Percent Auto 12.8 % (18.3-44.2); Mean Corpuscular HGB Conc 31.6 g/dl (32-36); Mean Corpuscular Hemoglobin 25.5 pg (26-34); Mean Corpuscular Volume 80.5 fl (80-100); Mean Platelet Volume 10.3 fl (7.4-10.4); Monocytes Absolute Auto 1.3 K/mm3 (0.1-0.6); Monocytes Percent Auto 9.3 % (2.6-8.5); Neutrophils Absolute Auto 10.9 K/mm3 (1.3-6.7); Neutrophils Percent Auto 76.4 % (45.5-73.1); Platelet Count Result 317 k/mm3 (150-375); Red Blood Count 4.16 M/mm3 (4.2-5.4); White Blood Count 14.2 K/mm3 (4.5-10.0)
--- NOTE | 2022-03-04 18:49 | WPDANESEPP ---
Anes - Eval Pre Procedure Procedure: labor epidural Date/Time: 03/04/22 18:49 Surgeon: fernanda Preop Diagnosis: pain during labor Pre Op Diagnosis: iol Patient Data Age: 26 Gender: F Height: 1.7 m Weight: 172 kg Last Vital Signs Pulse 95 03/04/22 18:46 BP 132/72 03/04/22 18:46 O2 Del Method Room Air 03/04/22 17:35 Allergies Allergy/AdvReac Type Severity Reaction Status Date / Time No Known Allergies Allergy Verified 03/24/21 08:19 Home Medications Medication Instructions Recorded Confirmed Type famotidine 20 mg tablet 20 mg PO HS 02/19/22 02/19/22 History loratadine 10 mg tablet (Claritin) 10 mg PO DAILY 02/19/22 02/19/22 History prenat.vits,dodie,gan-upmn-dqwlq 1 tablet PO HS 02/19/22 02/19/22 History acetazolamide 250 mg tablet 500 mg PO DAILY 03/04/22 03/04/22 History Laboratory Tests 03/04/22 03/04/22 03/04/22 17:39 17:39 17:39 WBC 14.2 K/mm3 H K/mm3 (4.5-10.0) RBC 4.16 M/mm3 L M/mm3 (4.2-5.4) Hgb 10.6 g/dL L D g/dL (12.0-15.0) Hct 33.5 % L % (37.0-47.0) MCV 80.5 fl fl (80-100) MCH 25.5 pg L pg (26-34) MCHC 31.6 g/dl L g/dl (32-36) RDW 16.0 % H % (11.5-14.5) Plt Count 317 k/mm3 k/mm3 (150-375) MPV 10.3 fl fl (7.4-10.4) Immature Gran % (Auto) 0.8 % H % (0-0.5) Neut % (Auto) 76.4 % H % (45.5-73.1) Lymph % (Auto) 12.8 % L % (18.3-44.2) [place] % (Auto) 9.3 % H % (2.6-8.5) Eos % (Auto) 0.6 % % (0-4.4) Baso % (Auto) 0.1 % L % (0.2-1.2) Lymph # (Auto) 1.82 K/mm3 K/mm3 (0.9-3.2) [place] # (Auto) 1.3 K/mm3 H K/mm3 (0.1-0.6) Eos # (Auto) 0.1 K/mm3 K/mm3 (0-0.3) Baso # (Auto) 0.0 K/mm3 K/mm3 (0.0-0.1) Abs Immat Gran (auto) 0.12 K/mm3 H K/mm3 (0.00-0.031) Absolute Neuts (auto) 10.9 K/mm3 H K/mm3 (1.3-6.7) Absolute Nucleated RBC 0.0 K/mm3 K/mm3 (0.0-0.012) Nucleated RBC % 0.0 % % (0.0-0.2) RPR Pending Blood Type A Positive Antibody Screen Negative Patient hx anesthesia problems: none Family hx anesthesia problems: none Results Review: All pre-operative results and documents have been reviewed as part of the pre-operative evaluation. [facility] Past Medical History Medical History (Updated 03/04/22 @ 18:49 by Debra Bautista CRNA) IUP (intrauterine ), incidental Morbid obesity with BMI of 50.0-59.9, adult Family History Family History (Updated 02/19/22 @ 15:58 by Apryl Meyers, MARU) Father Hypertension Lung cancer Father No problems noted. Grandparent Lung cancer Diabetes mellitus Grandparent Diabetes mellitus Grandparent Breast cancer Social History Social History Smoking status: Never smoker Substance use: never Gender identity (if verbalized by the patient): Female Spiritual care concerns: Yes (requests environmental services associate to visit) Exam Day of Procedure 03/04/22 18:49
[2022-03-05] VITALS (274 sets, daily range): BP systolic 103–170; BP diastolic 47–100; PULSE 73–123; TEMP 36.3–37.1; O2SAT 92–100
[2022-03-05] MEDS: fentaNYL CITRATE INJ (*CRX) 100 MCG/2 ML VIAL IV PUSH (02:15)
[2022-03-05] MEDS: LACTATED RINGERS 1,000 ML 125 ML IV CONT ×2 (03:16→07:04)
[2022-03-05 06:53] LABS: Rapid Plasma Reagin Non-Reactive (NonReactive)
[2022-03-05] MEDS: OXYTOCIN 30 UNITS/NS 500 ML 30 UNITS/500 ML BAG 6 UNITS IV CONT (07:04)
--- NOTE | 2022-03-05 07:34 | WPDOBADMIT ---
Obstetrics - Admit Note Admission Note: record reviewed. No pertinent additions to the history and/or any subsequent changes in the physical findings that are not consistent with the expected course of the were found. Additions to the history and/or subsequent changes in the physical findings follow. Here for MIL. Cervadil last pm. Now cervix 1-/-2 anterior. AROM with clear fluid. IUPC and FSE placed. FHTs with decreased variability. Will go slow up on Pitocin.
[2022-03-06] VITALS (70 sets, daily range): BP systolic 74–152; BP diastolic 41–84; PULSE 66–156; RESP 16–20; TEMP 36.3–37.6; O2SAT 83–100
[2022-03-06] MEDS: LACTATED RINGERS 1,000 ML 125 ML IV CONT (01:30)
--- NOTE | 2022-03-06 01:38 | PM.IMHP ---
H&P: HPI History of Present Illness Date/Time: 03/06/22 01:38 Chief Complaint: Nonreassuring heart tones Narrative: the patient is a 26-year-old G1at 39 and 5/7weeks here for medical induction of labor. Patient initially received Cervidil and had good cervical change overnight. membranes were ruptured 03/05 at 7:30 a.m.. Patient progressed slowly but consistently throughout the day. Patient with to complete pushing around midnight. After pushing for [id number] the patient began having occasional late decelerations. These became more consistent and after 20minutes of decelerations the pushing was stopped and Pitocin stopped. The patient position was changed x2 without full resolution the decelerations. In addition the of the tones revealed a decreased variability. It was recommended to proceed with primary . Patient voices understanding and agrees to proceed. The patient questions are answered. labs A positive, rubella immune, RPR negative, hepatitis-B surface antigen negative, HIV negative, group B strep negative. The patient was complicated by COVID at 7 weeks. [facility] Past Medical History Medical History (Updated 03/06/22 @ 01:46 by Angie Ames MD) History of kidney stones Idiopathic intracranial hypertension Morbid obesity with BMI of 50.0-59.9, adult Surgical History Surgical History (Updated 03/06/22 @ 01:44 by Angie Ames MD) History of tonsillectomy Family History Family History (Updated 02/19/22 @ 15:58 by Apryl Meyers RN) Father Hypertension Lung cancer Father No problems noted. Grandparent Lung cancer Diabetes mellitus Grandparent Diabetes mellitus Grandparent Breast cancer Social History Social History Smoking status: Never smoker Substance use: never Gender identity (if verbalized by the patient): Female Spiritual care concerns: Yes (requests ed case manager to visit) Meds Home Medications and Allergies Home Medications Medication Instructions Recorded Confirmed Type famotidine 20 mg tablet 20 mg PO HS 02/19/22 02/19/22 History loratadine 10 mg tablet (Claritin) 10 mg PO DAILY 02/19/22 02/19/22 History prenat.vits,dodie,byz-ffwx-aszey 1 tablet PO HS 02/19/22 02/19/22 History acetazolamide 250 mg tablet 500 mg PO DAILY 03/04/22 03/04/22 History Allergies Allergy/AdvReac Type Severity Reaction Status Date / Time No Known Allergies Allergy Verified 03/24/21 08:19 Vital Signs Vital Signs - 24 hr 03/05/22 04:30 03/05/22 04:31 03/05/22 04:29 Temperature 97.3 F L Pulse Rate 100 100 Blood Pressure 141/76 H 135/79 Pulse Oximetry 03/05/22 06:32 03/05/22 06:46 03/05/22 07:01 Temperature Pulse Rate 102 H 98 93 Blood Pressure 147/62 H 143/89 H 146/84 H Pulse Oximetry 03/05/22 07:16 03/05/22 07:31 03/05/22 07:46 Temperature Pulse Rate 97 97 103 H Blood Pressure 136/80 153/83 H 136/73 Pulse Oximetry 03/05/22 08:00 03/05/22 08:16 03/05/22 08:30 Temperature 98.7 F Pulse Rate 100 96 102 H Blood Pressure 143/88 H 140/93 H 154/95 H Pulse Oximetry 96 03/05/22 08:33 03/05/22 08:35 03/05/22 08:36 Temperature Pulse Rate 103 H 94 Blood Pressure 170/92 H 148/90 H Pulse Oximetry 96 03/05/22 08:38 03/05/22 08:40 03/05/22 08:41 Temperature Pulse Rate 104 H 86 Blood Pressure 129/86 134/76 Pulse Oximetry 96 03/05/22 08:43 03/05/22 08:46 03/05/22 08:48 Temperature Pulse Rate 91 92 90 Blood Pressure 136/74 137/79 132/74 Pulse Oximetry 96 95 03/05/22 08:51 03/05/22 08:53 03/05/22 08:56 Temperature Pulse Rate 100 94 88 Blood Pressure 141/74 H 136/80 131/77 Pulse Oximetry 95 03/05/22 08:58 03/05/22 09:01 03/05/22 09:03 Temperature Pulse Rate 89 90 87 Blood Pressure 138/79 144/76 H 136/76 Pulse Oximetry 94 95 03/05/22 09:06 03/05/22 09:08
--- NOTE | 2022-03-06 02:52 | W.PM.PROC2 ---
Procedure Note - Detailed Date of Procedure 03/06/22 Pre-op Diagnosis Intrauterine at 39 and 5/7 repetitive late decelerations Morbid obesity Post-op Diagnosis Same Procedure Performed primary low-transverse section Surgeon Angie Ames MD Anesthesia Epidural Findings female infant in the left occiput posterior position with a loose nuchal cord x1 normal-appearing tubes ovaries and uterus weight 7 lb 6oz with Apgars of 7 [id number] 8 [id number] Description of Procedure the patient was taken to the operating room and placed under anesthesia in the dorsal supine position with a leftward tilt once anesthesia was deemed adequate she was prepped and draped in the usual sterile fashion. The Pfannenstiel skin incision was made with a scalpel and carried down to the underlying layer of fascia which was nicked in the midline. The incision was extended laterally using Kenyon scissors.Ochsner was used to tent the fascia which was then dissected off using sharp and blunt dissection. The peritoneum was tented with a Peon and entered with Metzenbaum. The peritoneal incision is extended with blunt traction. The Calin O retractor was placed. The vesicouterine peritoneum was tented with a Peon and entered using Metzenbaum. The incision was extended laterally in the bladder flap created digitally. The lower uterine segment was incised in a transverse fashion with a scalpel and extended laterally using blunt traction. The 's head was brought up into the incision and while the purchasing administrative assistant applied fundal pressure the majority of the infant's head was delivered. Due to the subcutaneous tissue of mom the 's head would not deliver fully. A vacuum was applied and the 's head was able to be delivered easily. The infant was then fully delivered and the cord reduced. The cord was clamped and cut the infant handed to the waiting nursery nurse. The cord blood and gases were taken. The placenta is removed using manual traction. The uterus was cleared of all clots and debris. The uterine incision was grasped anteriorly and posteriorly with a ring forcep. The right angle extended downward into the vaginal sulcus. The Allis clamps were used to delineate the distal edge. The uterine incision was then closed using 0 Monocryl in a running locked fashion. Same suture was used to imbricate. Good hemostasis is noted. One additional rbrnio-om-lcmtr suture was required at the right angle. The cul-de-sac and gutters are irrigated. There was some oozing in the right angle and hemoderm is placed. No additional bleeding was noted. The Calin O retractor is removed. The fascia was then closed using 0 Vicryl in a running fashion. Subcutaneous tissues are irrigated made hemostatic using Bovie cautery. Skin incision was closed using 4-0 Vicryl in a subcuticular fashion. Dermaflex was placed over the incision and Mepilex dressing is placed. Sponge, needle, and instrument counts are correct per the OR staff. Patient received 3g of Ancef prior to skin incision. Estimated Blood Loss 910 Drains Yes ( Amaya catheter) Packing No Pathology Yes ( placenta) Complications No immediate complications Condition Stable Disposition PACU
--- NOTE | 2022-03-06 02:57 | PM.OBDSVD ---
DS: Admitting Diagnosis Discharge Date 03/09/22 Admitting Diagnosis intrauterine at 39 and 3/7 medical induction of labor morbid obesity DS: Discharge Diagnosis Discharge Diagnosis (1) delivery delivered: Code(s): O82 - Encounter for delivery without indication Status: Acute (2) Late deceleration of heart rate: Code(s): O36.8390 - Maternal care for abnormalities of the heart rate or rhythm, unspecified trimester, not applicable or unspecified Status: Acute (3) 39 weeks gestation of : Code(s): Z3A.39 - 39 weeks gestation of Status: Acute (4) Morbid obesity with BMI of 50.0-59.9, adult: Code(s): E66.01 - Morbid (severe) obesity due to excess calories; Z68.43 - Body mass index [BMI] 50.0-59.9, adult Status: Acute OB - DS: Summary OB Procedures : NST and Ultrasound OB Procedures Intrapartum: low cervical, transverse OB Procedures: : None Peripartum Data Delivery Method: Section Procedures: Procedures Operation Date: 03/06/22 02:00 <No data on this case meets the specified criteria> complications: none Status at Discharge Functional status at discharge: independent ambulation Overall status at discharge: patient is progressing back to baseline Time Spent with Patient Time attestation: Total time spent providing and/or coordinating discharge services: DS: Data Data Completed and Pending Labs on day of discharge: Labs from last 24 hours 03/04/22 17:39 RPR Non-reactive Discharge Plan Discharge Attending physician on discharge: Angie Ames Discharging Clinician: Angie Ames Anticipated Discharge Date/Time: 03/09/22 07:46 Patient Disposition: Home, Self-Care Activity: may shower, may drive after 2 weeks and pelvic rest Diet: regular Wound Care Instructions: keep dressing dry Patient Instructions: Antibiotic Form Stand Alone Forms: General Discharge Information Follow-up/Referrals: Angie Ames MD [Physician] - 1 Week ( and 6 week) Discharge Medications: New hydrocodone-acetaminophen 5-325 mg tablet 1 tablet PO Q4H PRN (Reason: pain) Qty: 20 0RF Continued famotidine 20 mg Tablet 20 mg PO HS loratadine [Claritin] 10 mg Tablet 10 mg PO DAILY #2 Tablet 1 tablet PO HS acetazolamide 250 mg tablet 500 mg PO DAILY Date of admission: 03/04/22 17:10 Primary Care Provider: Sheree,Neva Admitting Provider: Angie Ames Attending physician on admission: Angie Ames Condition: Stable
[2022-03-06] MEDS: HYDROmorphone HCL INJ (*CRX) 1 MG/ML SYR 0.5 MG IV PUSH ×2 (03:41→05:03)
--- NOTE | 2022-03-06 05:10 | PC.NURSE ---
Patient transferred to post room #290 per stretcher from labor and delivery. Support person present. Oriented to unit, room, information board, rooming in, admission packet and security measures. Patient verbalizes understanding.
[2022-03-06] MEDS: OXYTOCIN 30 UNITS/NS 500 ML 30 UNITS/500 ML BAG 125 UNITS IV CONT (05:15)
[2022-03-06] MEDS: HYDROcodone/acetaminophen (*CRX) 10-325 MG TABLET 1 TAB PO ×3 (07:38→19:30)
[2022-03-06] MEDS: DEXTROSE 5%/0.45% SOD CHL 1,000 ML 125 ML IV CONT (09:33)
[2022-03-06] MEDS: POLYSACCHARIDE IRON COMPLEX 150 MG CAPSULE PO ×2 (10:17→17:15)
[2022-03-06] MEDS: SIMETHICONE 80 MG TAB.CHEW PO ×2 (10:17→23:08)
[2022-03-06] MEDS: MULTIVIT/MIN/PREN/FOL AC/IRON TABLET 1 TAB PO (10:18)
[2022-03-06] MEDS: DOCUSATE SODIUM 100 MG CAPSULE PO ×2 (10:18→17:15)
[2022-03-06] MEDS: KETOROLAC 30 MG/ML VIAL (*BKC) IV PUSH ×2 (11:56→19:00)
--- NOTE | 2022-03-06 15:15 | PC.NURSE ---
Pt c/o of numbness on bottom of left foot. PT able to move and dorsal flex her foot. able to bear weight. Pt states it just feels funny and numb. No pain or redness noted. Anesthesia was called and informed and pt's c/o. Anesthesia states that they will round in the morning and that usually a slight numbness is okay up to 24 hours post op due to long epidural in labor and then dosage for c/section. Information was passed on to parents.
[2022-03-07] MEDS: HYDROcodone/acetaminophen (*CRX) 10-325 MG TABLET 1 TAB PO ×5 (01:39→17:20)
[2022-03-07] MEDS: KETOROLAC 30 MG/ML VIAL (*BKC) IV PUSH (01:39)
[2022-03-07] MEDS: SIMETHICONE 80 MG TAB.CHEW PO ×3 (01:40→20:36)
[2022-03-07 07:40] VITALS: BP 109/69; PULSE 88; RESP 16; TEMP 36.8; O2SAT 98
[2022-03-07] MEDS: MULTIVIT/MIN/PREN/FOL AC/IRON TABLET 1 TAB PO (07:47)
[2022-03-07] MEDS: IBUPROFEN 600 MG TABLET PO ×3 (07:48→20:36)
[2022-03-07] MEDS: DOCUSATE SODIUM 100 MG CAPSULE PO ×2 (07:50→17:20)
[2022-03-07 07:58] LABS: Basophils Percent Auto 0.2 % (0.2-1.2); Eosinophils Absolute Auto 0.2 K/mm3 (0-0.3); Eosinophils Percent Auto 1.2 % (0-4.4); Hematocrit 28.1 % (37.0-47.0); Hemoglobin 8.8 g/dL (12.0-15.0); Immature Granulocyte Absolute 0.06 K/mm3 (0.00-0.031); Immature Granulocyte Percent A 0.4 % (0-0.5); Lymphocytes Absolute Auto 2.35 K/mm3 (0.9-3.2); Mean Corpuscular HGB Conc 31.3 g/dl (32-36); Mean Corpuscular Volume 82.9 fl (80-100); Mean Platelet Volume 10.3 fl (7.4-10.4); Monocytes Absolute Auto 1.3 K/mm3 (0.1-0.6); Monocytes Percent Auto 9.6 % (2.6-8.5); Neutrophils Absolute Auto 9.9 K/mm3 (1.3-6.7); Neutrophils Percent Auto 71.6 % (45.5-73.1); Platelet Count Result 251 k/mm3 (150-375); Red Blood Count 3.39 M/mm3 (4.2-5.4); Red Cell Distribution Width 16.6 % (11.5-14.5); White Blood Count 13.8 K/mm3 (4.5-10.0)
[2022-03-07 08:40] VITALS: PULSE 88; RESP 16; O2SAT 98
[2022-03-07] MEDS: POLYSACCHARIDE IRON COMPLEX 150 MG CAPSULE PO ×2 (08:40→17:20)
--- NOTE | 2022-03-07 08:46 | WPDANLDPN2 ---
Anes-Prog Note L&D Date/Time: 03/07/22 08:46 Comfortable throughout: labor, delivery and section Neuraxial method: epidural Epidural/Spinal procedure site: clean & non-tender Neuro status: Patient experiencing left ventral foot paraesthesia. This is improved from yesterday when she experienced left ventral foot and left calf paraesthesia. Patient is able to flex and extend foot with no weakness. Patient is able to ambulate on her own, use restroom and has no pain. Patient was in stirrups and pushing for 1.5 hours prior to C/S. Discussed likelihood of this injury being from pushing in stirrups for 1.5 hours vs epidural injury. Educacted patient on nature of this paraesthesia and to contact her OBGYN if she has further concerns as this was likely due to stirrups and pushing. Re-assured patient in time this paraesthesia usually resolved on its own. Patient did not have further questions. Cardiovascular status: normal Respiratory status: normal Airway patency: baseline Mental status: baseline Post-Op hydration status: normal Vital Signs: Last Vital Signs Temp 36.6 C 03/06/22 23:00 Pulse 99 03/06/22 23:00 Resp 16 03/06/22 23:00 BP 120/67 03/06/22 23:00 Pulse Ox 100 03/06/22 23:00 O2 Del Method Room Air 03/06/22 05:00 Pain score (VAS): 2 I/O: Intake & Output 03/06/22 03/07/22 03/07/22 23:59 07:59 15:59 Intake Total 440 940 Output Total 400 1300 Balance 40 -360 Post-procedural complaints: none Patient feedback: Patient satisfied with anesthetic care.
--- NOTE | 2022-03-07 08:57 | WPDANLDNPN2 ---
Anes-Prog Note L&D-Neuraxial Date/Time: 03/07/22 08:57 Neuraxial medications: epidural PF morphine Opiod-related complaints: none Patient feedback: Patient satisfied with post-operative pain management.
--- NOTE | 2022-03-07 09:21 | P.PNOB_ITS ---
OB - PN: Subj Subjective Date/time seen: 03/07/22 09:21 Patient comments: pain well controlled, incisional pain, tolerating diet and other (left foot numbness but able to move) baby status: doing well OB - PN: Obj Data Labs CBC & Chem 7: 03/07/22 07:54 Labs: Laboratory Results - last 24 hr 03/07/22 07:54 WBC 13.8 H RBC 3.39 L Hgb 8.8 L Hct 28.1 L MCV 82.9 MCH 26.0 MCHC 31.3 L RDW 16.6 H Plt Count 251 MPV 10.3 Immature Gran % (Auto) 0.4 Neut % (Auto) 71.6 Lymph % (Auto) 17.0 L [place] % (Auto) 9.6 H Eos % (Auto) 1.2 Baso % (Auto) 0.2 Lymph # (Auto) 2.35 [place] # (Auto) 1.3 H Eos # (Auto) 0.2 Baso # (Auto) 0.0 Abs Immat Gran (auto) 0.06 H Absolute Neuts (auto) 9.9 H Absolute Nucleated RBC 0.0 Nucleated RBC % 0.0 OB - PN A/P Plan day: 1 Plan: routine care Comments: left foot numbness likely from pushing position d/w patient may take several weeks to return fully and occ does not Time Spent With Patient Time: Total time spent is greater than 50% in coordination of care (as documented) at patient's floor/unit and/or counseling patient: Exam Narrative: bandage c/d/i fundus firm nt
[2022-03-07 20:40] VITALS: BP 134/79; PULSE 110; RESP 16; TEMP 36.2; O2SAT 99
[2022-03-08] MEDS: HYDROcodone/acetaminophen (*CRX) 5-325 MG TABLET 1 TAB PO
[2022-03-08] MEDS: IBUPROFEN 600 MG TABLET PO ×3 (03:05→21:00)
[2022-03-08] MEDS: SIMETHICONE 80 MG TAB.CHEW PO ×2 (03:05)
[2022-03-08] MEDS: HYDROcodone/acetaminophen (*CRX) 10-325 MG TABLET 1 TAB PO ×5 (03:05→20:59)
[2022-03-08 07:25] VITALS: BP 133/80; PULSE 70; RESP 18; TEMP 36.2; O2SAT 100
[2022-03-08] MEDS: MULTIVIT/MIN/PREN/FOL AC/IRON TABLET 1 TAB PO (07:37)
[2022-03-08] MEDS: DOCUSATE SODIUM 100 MG CAPSULE PO ×2 (07:37→16:54)
[2022-03-08] MEDS: POLYSACCHARIDE IRON COMPLEX 150 MG CAPSULE PO ×2 (07:37→16:54)
--- NOTE | 2022-03-08 08:36 | PM.OBPNVD ---
OB - PN: Subj Subjective Date/time seen: 03/08/22 08:36 Patient comments: no complaints and pain well controlled baby status: doing well OB - PN: Obj Data Labs CBC & Chem 7: 03/07/22 07:54 OB - PN A/P Plan day: 2 Plan: routine care Time Spent With Patient Time: Total time spent is greater than 50% in coordination of care (as documented) at patient's floor/unit and/or counseling patient: Exam Narrative: bandage dry fundus firm nt
[2022-03-08 20:15] VITALS: BP 138/82; PULSE 97; RESP 18; TEMP 36.9; O2SAT 99
[2022-03-09] MEDS: IBUPROFEN 600 MG TABLET PO ×2 (03:53→11:49)
[2022-03-09] MEDS: HYDROcodone/acetaminophen (*CRX) 10-325 MG TABLET 1 TAB PO ×2 (03:54→07:46)
[2022-03-09] MEDS: POLYSACCHARIDE IRON COMPLEX 150 MG CAPSULE PO (07:45)
--- NOTE | 2022-03-09 07:45 | PM.OBPNVD ---
OB - PN: Subj Subjective Date/time seen: 03/09/22 07:45 Patient comments: no complaints and pain well controlled baby status: doing well OB - PN: Obj Data Labs CBC & Chem 7: 03/07/22 07:54 OB - PN A/P Plan day: 3 Plan: routine care and discharge home Time Spent With Patient Time: Total time spent is greater than 50% in coordination of care (as documented) at patient's floor/unit and/or counseling patient: Exam : Bimanual exam- vagina & uterus: other (Uterus firm, nt @U)
[2022-03-09 07:55] VITALS: BP 129/64; PULSE 87; RESP 16; TEMP 36.7; O2SAT 99
[2022-03-09] MEDS: MULTIVIT/MIN/PREN/FOL AC/IRON TABLET 1 TAB PO (09:00)
[2022-03-09] MEDS: DOCUSATE SODIUM 100 MG CAPSULE PO (09:00)
[2022-03-09] MEDS: HYDROcodone/acetaminophen (*CRX) 5-325 MG TABLET 1 TAB PO (11:49)
[2022-03-10 11:02] VITALS: BP 117/60; PULSE 99; RESP 20; TEMP 37.4; O2SAT 99
== END 2022-03-09 12:06 | disposition home or self-care (01) | DRG 788 ==
LOC: ANHLDR 03-06 03:00 → ANHOB2 03-06 05:49
PROVIDERS: Admitting Provider Obstetrics & Gynecology Gynecology; PCP Registered Nurse; Visit Provider Obstetrics & Gynecology Gynecology
PROC: 10D00Z1 Extraction of Products of Conception, Low, Open Approach (ICD-10-PCS; CPT 59514; principal; 2022-03-06 02:00)
DX: O36.8330 Maternal care for abnormalities of the fetal heart rate or rhythm, third trimester, not applicable or unspecified (principal); Z37.0 Single live birth; Z3A.39 39 weeks gestation of pregnancy; O69.81X0 Labor and delivery complicated by cord around neck, without compression, not applicable or unspecified; O99.214 Obesity complicating childbirth; E66.01 Morbid (severe) obesity due to excess calories; R20.2 Paresthesia of skin
CPT/HCPCS: 36415; 59025; 85025; 86592; 86850; 86900; 86901; 88307; A9270; J0131; J1170; J1885; J2274; J2590; J2795; J3010; J7120

== ENCOUNTER 2022-06-24 17:17 | Emergency (ER) | payer OTHER, SELFPAY ==
[2022-06-24 17:25] VITALS: BP 112/58; PULSE 82; RESP 18; TEMP 36.7; O2SAT 100
--- NOTE | 2022-06-24 17:38 | ED.URI ---
HPI - URI/Sore Throat General Chief Complaint: Skin/Abscess/Foreign Body Stated Complaint: Rash under Lt Breast Time Seen by Provider: 06/24/22 17:31 Source: patient Mode of arrival: ambulatory Limitations: no limitations History of Present Illness HPI Narrative: Patient presents today complaining of painful and itching rash under the left breast x2 days. She also reports pain to the left midback without rash. She currently rates pain 4/10 has tried no [id number]-[id number] treatment prior to arrival. Related Data Home Medications Medication Instructions Recorded Confirmed loratadine 10 mg tablet (Claritin) 10 mg PO DAILY 02/19/22 06/24/22 acetazolamide 250 mg tablet 500 mg PO DAILY 03/04/22 06/24/22 Allergies Allergy/AdvReac Type Severity Reaction Status Date / Time No Known Allergies Allergy Verified 06/24/22 17:28 Review of Systems Review of Systems: CONSTITUTIONAL: Denies body aches, fever, chills, or sweats. EYES: Denies visual changes, redness, or discharge. ENT: Denies rhinorrhea, congestion, sore throat, or otalgia. CARDIOVASCULAR: Denies chest pain, palpitations, or edema. RESPIRATORY: Denies cough or dyspnea. GASTROINTESTINAL: Denies abdominal pain, nausea, vomiting, or diarrhea. GENITOURINARY: Denies dysuria or hematuria. SKIN: + Painful and pruritic rash MUSCULOSKELETAL: Denies back pain, joint pain, or myalgia. NEUROLOGIC: Denies headache, numbness, tingling, or weakness. PSYCH: Denies depression or anxiety. [facility] Past Medical History Medical History History of kidney stones Idiopathic intracranial hypertension Morbid obesity with BMI of 50.0-59.9, adult Surgical History Surgical History History of tonsillectomy Family History Family History Father Hypertension Lung cancer Father No problems noted. Grandparent Lung cancer Diabetes mellitus Grandparent Diabetes mellitus Grandparent Breast cancer Social History Social History (Reviewed 06/24/22 @ 17:39 by GRISEL James, Freda Smoking status: Never smoker Substance use: never Gender identity (if verbalized by the patient): Female Spiritual care concerns: Yes (requests financial rep to visit) Comments At time of signature, I have reviewed and agree with nursing past medical, surgical, social and family history unless otherwise noted. Please see nursing chart for further information. There is no relevant family history pertinent to the presenting complaint Exam Narrative: GENERAL: Well-appearing, well-nourished, and in no acute distress. HEAD: Normocephalic, atraumatic. EYES: EOMI. No redness or drainage. Conjunctivae normal. ENT: Mucous membranes pink and moist. NECK: Normal AROM. CHEST: No respiratory distress. EXTREMITIES: Normal range of motion. No edema. SKIN: Warm, dry. Capillary refill normal. Normal skin turgor. Erythematous papular rash below the left breast along a dermatomal distribution. Patient also has tenderness to the left midback without evidence of rash. NEURO: No focal deficits. Alert and oriented x3. Gait steady. PSYCH: Normal affect. No signs of depression or anxiety. Course Course Level of Care: Express Care Visit Vital Signs Vital signs: Vital Signs Temperature 98.1 F 06/24/22 17:25 Pulse Rate 82 06/24/22 17:25 Respiratory Rate 18 06/24/22 17:25 Blood Pressure 112/58 L 06/24/22 17:25 Pulse Oximetry 100 06/24/22 17:25 Oxygen Delivery Room Air 06/24/22 17:25 Temperature 98.1 F 06/24/22 17:25 Pulse Rate 82 06/24/22 17:25 Respiratory Rate 18 06/24/22 17:25 Blood Pressure 112/58 L 06/24/22 17:25 Pulse Oximetry 100 06/24/22 17:25 Oxygen Delivery Room Air 06/24/22 17:25 Reviewed MDM - URI/Sore Throat Differential Diagnosis Differential diagnosis
== END 2022-06-24 17:47 | disposition home or self-care (01) ==
PROVIDERS: Emergency Provider Nurse Practitioner; PCP Registered Nurse
DX: B02.9 Zoster without complications (principal); E66.01 Morbid (severe) obesity due to excess calories; Z68.43 Body mass index [BMI] 50.0-59.9, adult
CPT/HCPCS: 99213; G0463

== ENCOUNTER 2022-08-14 16:23 | Emergency (ER) | payer OTHER, SELFPAY ==
[2022-08-14 16:52] VITALS: BP 155/101; PULSE 110; RESP 20; TEMP 37.3; O2SAT 97
--- NOTE | 2022-08-14 19:40 | PC.NURSE ---
Patient approached intake desk and reported she did not want to wait any longer and left. Patient was alert and ambulatory upon leaving the ED.
== END 2022-08-14 19:41 | disposition left against medical advice (07) ==
PROVIDERS: PCP Registered Nurse
DX: Z53.21 Procedure and treatment not carried out due to patient leaving prior to being seen by health care provider (principal)
CPT/HCPCS: 99199

== ENCOUNTER 2022-08-15 10:15 | Emergency (ER) | payer OTHER, SELFPAY ==
--- NOTE | ~2022-08-15 | XR_ITS ---
EXAMINATION: XR chest 2V DATE: 08/15/2022 11:46 INDICATION: Shortness of breath. Cough. TECHNIQUE: Frontal and lateral views of the chest were obtained. COMPARISON: Chest single view 03/24/2021, chest CT 02/27/2021 FINDINGS: There is no pneumonia, pleural effusion, or pneumothorax. The heart size is normal. There i s chronic right hilar lymphadenopathy. IMPRESSION: 1. Chronic right hilar lymphadenopathy. Reviewed, dictated and finalized at location A. R ARBITRATOR HEARING OFFICE
--- NOTE | 2022-08-15 10:47 | ED.GENADULT ---
HPI - General Adult General Chief complaint: Upper Respiratory Infection Stated complaint: Elevated Hear Rate,Nausea Source: patient Mode of arrival: ambulatory Limitations: no limitations History of Present Illness HPI narrative: 27-year-old female presents to [facility] with complaints of nausea intermittently for the past week. Patient reports that 2 days ago she then started with cough, chills and increased heart rate. Patient reports that she noticed that she was having increased heart rate up to 120s while she was sitting on the couch per her Apple watch. Patient reports that yesterday she then started with tightness to her upper back, intermittent shortness of breath, wheezing and continued with cough. Patient denies current tightness in her back. Patient denies chest pain, fever, body aches, diarrhea. Patient is a nonsmoker. Patient denies recent travel. Patient denies sick contacts. Patient reports that she went to [facility] first but then left due to 5 hour wait. Onset (ago): week(s) (1) Associated symptoms: cough, fever/chills, nausea/vomiting and shortness of breath Treatments prior to arrival: none Related Data Home Medications Medication Instructions Recorded Confirmed loratadine 10 mg tablet (Claritin) 10 mg PO DAILY 02/19/22 06/24/22 acetazolamide 250 mg tablet 500 mg PO DAILY 03/04/22 06/24/22 Allergies Allergy/AdvReac Type Severity Reaction Status Date / Time No Known Allergies Allergy Verified 06/24/22 17:28 Review of Systems Constitutional: Constitutional: Reports chills, Reports fatigue, Denies fever(s) and Denies weakness ENT: Denies dizziness, Denies epistaxis, Denies nasal congestion and Denies sore throat Cardiovascular: Cardiovascular: Denies chest pain, Reports rapid heart rate, Denies radiating jaw, neck or arm pain and Denies slow heart rate Respiratory: Respiratory: Denies chest congestion, Reports cough, Reports dyspnea and Reports wheezing Gastrointestinal: Gastrointestinal: Denies abdominal pain, Denies bloating, Denies constipation, Denies heartburn, Denies diarrhea, Reports nausea and Reports vomiting Genitourinary: Genitourinary: Denies hematuria and Denies nocturia Musculoskeletal: Musculoskeletal: Denies arthralgias and Denies joint swelling Integumentary/Breasts: Skin/Breast: Denies rash Neurologic: Denies vertigo and Denies dizziness [facility] Past Medical History Medical History History of kidney stones Idiopathic intracranial hypertension Morbid obesity with BMI of 50.0-59.9, adult Surgical History Surgical History History of tonsillectomy Family History Family History Father Hypertension Lung cancer Father No problems noted. Grandparent Lung cancer Diabetes mellitus Grandparent Diabetes mellitus Grandparent Breast cancer Social History Social History Smoking status: Never smoker Substance use: never Gender identity (if verbalized by the patient): Female Spiritual care concerns: Yes (requests corn detasseler to visit) Comments At time of signature, I agree with nursing past medical, surgical, social and family history. There is no relevant family history pertinent to the presenting complaint. Exam Const: General: healthy appearing Nutritional Appearance: well nourished and obese Orientation/consciousness: patient oriented x3 Limitations: no limitations HENMT: Head: normal to inspection Mouth: Yes Normal oral and palatal mucosa present and Yes moist mucous membranes Eyes: Conjunctivae: conjunctivae normal Neck: Neck: normal visual inspection Resp: Effort & Inspection: normal respiratory effort and not labored Auscultation: clear to auscultation bilaterally, no crackles, no rales, no rhonchi and no wheezes Cardio
[2022-08-15 10:48] VITALS: BP 125/58; PULSE 91; RESP 12; TEMP 36.7; O2SAT 100
--- NOTE | 2022-08-15 11:04 | ECG_ITS ---
Measurements Intervals [place] Rate: 83 P: 55 VA: 165 QRS: 32 QRSD: 88 T: 19 QT: 348 QTc: 410 Interpretive Statements SINUS RHYTHM WITH SINUS ARRHYTHMIA DELAYED PRECORDIAL R/S TRANSITION BASELINE ARTIFACT- I, II, III, AVR, AVL, AVF, V1-V2 BORDERLINE ECG NO PREVIOUS ECG AVAILABLE FOR COMPARISON Electronically Signed On 08-15-2022 14:05:31 PROFESSIONAL ARCHITECT by Omero Umanzor D.O.
== END 2022-08-15 12:26 | disposition home or self-care (01) ==
PROVIDERS: Emergency Provider Nurse Practitioner Family; PCP Registered Nurse
DX: B34.9 Viral infection, unspecified (principal); Z20.822 Contact with and (suspected) exposure to COVID-19; E66.01 Morbid (severe) obesity due to excess calories; Z68.43 Body mass index [BMI] 50.0-59.9, adult
CPT/HCPCS: 71046; 87426; 93005; 99213; C9803; G0463

== ENCOUNTER 2022-08-15 14:40 | Emergency (ER) | payer OTHER, SELFPAY ==
--- NOTE | ~2022-08-15 | XR_ITS ---
EXAMINATION: XR chest 2V Exam Date/Time: 08/15/2022 15:08 HOME CARE AIDE HISTORY: L.CP SHOULDER PAIN NAUSEA FOR 2 DAYS.HAD BABY 5 MONTHS AGO Comparison: 08/15/2022 at 11:44 AM, CT chest 02/27/2021. RESULT: Lines, tubes, and devices: None. Lungs and pleura: Clear. Cardiomediastinal silhouette: Stable right hilar lymphadenopathy. Other: No acute osseous or upper abdominal finding. IMPRESSION: No acute cardiopulmonary process. Stable right hilar lymphadenopathy. Reviewed, dictated and finalized at location K. CARE AIDE
--- NOTE | 2022-08-15 14:41 | ECG_ITS ---
Measurements Intervals [place] Rate: 102 P: 57 IN: 154 QRS: 32 QRSD: 89 T: 31 QT: 321 QTc: 418 Interpretive Statements SINUS TACHYCARDIA BORDERLINE ECG COMPARED TO ECG 08/15/2022 11:00:12 SINUS TACHYCARDIA NOW PRESENT Electronically Signed On 08-15-2022 15:03:28 TRANSPORTATION DISPATCHER by Omero Umanzor D.O.
[2022-08-15 14:48] VITALS: BP 130/91; PULSE 109; RESP 16; TEMP 36.8; O2SAT 97
[2022-08-15 15:05] LABS: Basophils Percent Auto 0.2 % (0.2-1.2); Eosinophils Absolute Auto 0.1 K/mm3 (0-0.3); Eosinophils Percent Auto 0.9 % (0-4.4); Hematocrit 38.9 % (37.0-47.0); Hemoglobin 12.7 g/dL (12.0-15.0); Immature Granulocyte Absolute 0.04 K/mm3 (0.00-0.031); Immature Granulocyte Percent A 0.4 % (0-0.5); Lymphocytes Absolute Auto 1.88 K/mm3 (0.9-3.2); Lymphocytes Percent Auto 17.1 % (18.3-44.2); Mean Corpuscular HGB Conc 32.6 g/dl (32-36); Mean Corpuscular Hemoglobin 26.8 pg (26-34); Mean Corpuscular Volume 82.2 fl (80-100); Mean Platelet Volume 10.4 fl (7.4-10.4); Monocytes Absolute Auto 1.2 K/mm3 (0.1-0.6); Monocytes Percent Auto 10.7 % (2.6-8.5); Neutrophils Absolute Auto 7.8 K/mm3 (1.3-6.7); Neutrophils Percent Auto 70.7 % (45.5-73.1); Platelet Count Result 288 k/mm3 (150-375); Red Blood Count 4.73 M/mm3 (4.2-5.4); Red Cell Distribution Width 14.6 % (11.5-14.5)
[2022-08-15 15:15] LABS: Partial Thromboplastin Time 32.2 SECONDS (22.3-36.8)
[2022-08-15 15:17] LABS: Alanine Aminotransferase 29 U/L (6-35); Albumin Level 4.5 g/dL (3.5-5.1); Alkaline Phosphatase 121 U/L (38-126); Anion Gap 9 mmol/L (8-16); Aspartate Amino Transferase 31 U/L (14-36); Bilirubin,Total 0.5 mg/dL (0.2-1.3); Blood Urea Nitrogen 12 mg/dL (7-17); Calcium 9.5 mg/dL (8.4-10.2); Carbon Dioxide 23 mmol/L (22-30); Chloride 106 mmol/L (98-107); Estimated CRCL calculation 141 ml/min; Estimated Glomerular Filt Rate > 60; Glucose 83 mg/dL (65-110); Lipase 44 U/L (23-300); Potassium 3.6 mmol/L (3.4-5.0); Sodium 138 mmol/L (137-145)
[2022-08-15 15:29] LABS: Troponin I < 0.012 ng/mL (0.000-0.034)
[2022-08-15 16:59] VITALS: BP 138/81; PULSE 94; RESP 20; TEMP 36.7; O2SAT 100
[2022-08-15 17:02] VITALS: O2SAT 100
--- NOTE | 2022-08-15 17:07 | ED.CHESTPAIN ---
HPI - Chest Pain General Chief Complaint: Chest Pain Stated Complaint: chest pain Time Seen by Provider: 08/15/22 16:49 Source: patient and RN notes reviewed Mode of arrival: ambulatory Limitations: no limitations History of Present Illness HPI narrative: This is a 27 year old female that presents to the ER for chest pain ongoing over the last couple of days. Reports cough, congestion and rhinorrhea. Reports she has been having sharp intermittent chest pain, worse with breathing. Denies fever or shortness of breath. Related Data Home Medications Medication Instructions Recorded Confirmed loratadine 10 mg tablet (Claritin) 10 mg PO DAILY 02/19/22 06/24/22 acetazolamide 250 mg tablet 500 mg PO DAILY 03/04/22 06/24/22 Allergies Allergy/AdvReac Type Severity Reaction Status Date / Time No Known Allergies Allergy Verified 08/15/22 17:04 Review of Systems Review of Systems: CONSTITUTIONAL: Denies fever ENT: Reports rhinorrhea, congestion. Denies sore throat CARDIOVASCULAR: Reports chest pain, palpitations. Denies edema. RESPIRATORY: Reports cough. Denies dyspnea. All systems reviewed & are unremarkable except as noted in HPI and below PMFSH Past Medical History Medical History History of kidney stones Idiopathic intracranial hypertension Morbid obesity with BMI of 50.0-59.9, adult Surgical History Surgical History History of tonsillectomy Family History Family History Father Hypertension Lung cancer Father No problems noted. Grandparent Lung cancer Diabetes mellitus Grandparent Diabetes mellitus Grandparent Breast cancer Social History Social History Smoking status: Never smoker Substance use: never Gender identity (if verbalized by the patient): Female Spiritual care concerns: Yes (requests warranty coordinator to visit) Exam Narrative: GENERAL: Well-appearing, well-nourished, and in no acute distress. HEAD: Normocephalic, atraumatic. EYES: EOMI. ENT: Nares clear, no rhinorrhea or epistaxis. Mucous membranes moist. Oropharynx without tonsillar hypertrophy exudate or other lesions. Bilateral TMs pearly laura non-bulging NECK: Supple. No adenopathy or masses. CHEST: Clear to auscultation. No respiratory distress. No wheezes rales or rhonchi HEART: Regular rate and rhythm. No murmur heard. Normal peripheral pulses. EXTREMITIES: Normal range of motion. No edema. SKIN: Warm, dry, no rash. NEURO: No focal deficits. Alert and oriented x3. PSYCH: Normal mood and affect Course Vital Signs Vital signs: Vital Signs Temperature 98.2 F 08/15/22 14:48 Pulse Rate 109 H 08/15/22 14:48 Respiratory Rate 16 08/15/22 14:48 Blood Pressure 130/91 H 08/15/22 14:48 Pulse Oximetry 97 08/15/22 14:48 Oxygen Delivery Room Air 08/15/22 14:48 Temperature 98.0 F 08/15/22 16:59 Pulse Rate 91 08/15/22 17:16 Respiratory Rate 20 08/15/22 17:16 Blood Pressure 131/59 L 08/15/22 17:16 Pulse Oximetry 100 08/15/22 17:16 Oxygen Delivery Room Air 08/15/22 17:02 MDM - Chest Pain MDM Narrative Medical decision making narrative: Patient presents to the ER for chest pain ongoing over the last couple of days. Associated with cold symptoms. She is afebrile and nontoxic-appearing. Mildly tachycardic upon arrival, this normalized after IV fluid administration. CBC with mild leukocytosis to 11. Metabolic panel without concerning findings. EKG without acute changes and baseline and 3-hour troponin are negative. D-dimer is not elevated. Influenza and COVID screens are negative. Chest x-ray without acute cardiopulmonary abnormality. Her heart score is a 1. Patient was updated on work-up. Instructed to have close follow-up with primary provider. She was given warnings
[2022-08-15 17:16] VITALS: BP 131/59; PULSE 91; RESP 20; O2SAT 100
[2022-08-15] MEDS: SODIUM CHLORIDE 0.9% IV 500 ML 999 ML IV CONT (17:28)
[2022-08-15] MEDS: ACETAMINOPHEN 500 MG TABLET 1000 MG PO (17:29)
[2022-08-15 18:04] LABS: Troponin I < 0.012 ng/mL (0.000-0.034)
[2022-08-15 18:20] LABS: Influenza A QL RT-PCR Negative (Negative); Influenza B QL RT-PCR Negative (Negative); SARS-CoV-2 RNA PCR Negative
[2022-08-15 18:33] VITALS: BP 135/78; PULSE 95; RESP 20; O2SAT 99
[2022-08-15 19:00] VITALS: BP 128/66; PULSE 96; RESP 18; O2SAT 99
== END 2022-08-15 19:03 | disposition home or self-care (01) ==
PROVIDERS: Emergency Medicine; Emergency Provider Physician Assistant; PCP Registered Nurse
DX: B34.9 Viral infection, unspecified (principal); Z20.822 Contact with and (suspected) exposure to COVID-19; G93.2 Benign intracranial hypertension; E66.01 Morbid (severe) obesity due to excess calories; Z68.43 Body mass index [BMI] 50.0-59.9, adult; Z87.442 Personal history of urinary calculi; R00.0 Tachycardia, unspecified
CPT/HCPCS: 36415; 71046; 80053; 81025; 83690; 84484; 85025; 85380; 85610; 85730; 87426; 87636; 93005; 96360; 99284; A9270; C9803; J7040

== ENCOUNTER 2022-08-31 11:56 | Outpatient (CLI) | payer OTHER, SELFPAY ==
--- NOTE | ~2022-08-31 | US_ITS ---
US breast LT limited DATE: 08/31/2022 13:42 INDICATION: Pain and possible lump in the 8:00-9:00 area of left breast TECHNIQUE: Real-time imaging targeted to area of clinical complaint of pain at 8:00-9:00 7 cm from ni pple COMPARISON: None FINDINGS: No suspicious mass or shadowing, cyst or other significant abnormality is detected. IMPRESSION: BI-RADS Category 1: Negative Recommendation: None Reviewed, dictated and finalized at Location A. Reviewed, dictated and finalized at location A. CTOR OPERATIONS BROADCAST
== END 2022-08-31 11:57 | disposition home or self-care (01) ==
PROVIDERS: PCP Registered Nurse; Visit Provider Nurse Practitioner
DX: N64.4 Mastodynia (principal)
CPT/HCPCS: 76642

== ENCOUNTER 2022-09-20 15:04 | Outpatient (CLI) | payer OTHER, SELFPAY ==
--- NOTE | 2022-09-24 12:40 | WPDHOLTEREM ---
Holter/Event Monitor Holter/Event Monitor Date of procedure: 09/20/22 Holter/Event Procedure: 48 Hr Holter Monitor Indications: Tachycardia Conclusion: 1. 48 hour holter monitor on 09/20/22. 2. Underlying rhythm is sinus rhythm. HR range 43-167 bpm; average HR 91 bpm. HR at 167 bpm was at 17:29. HR at 43 bpm was at 04:13. 3. No premature supraventricular complexes. No supraventricular tachycardia. 4. No premature ventricular complexes. No ventricular tachycardia. 5. No sinoatrial or atrioventricular blocks. No significant pauses greater than 2 seconds. 6. Patient reports symptoms of shortness of breath, flutter, sharp pain which demonstrate sinus rhythm, HR range 92-115 bpm.
== END 2022-09-20 15:05 | disposition home or self-care (01) ==
PROVIDERS: PCP Registered Nurse; Visit Provider Registered Nurse
DX: R00.0 Tachycardia, unspecified (principal); R53.83 Other fatigue; R06.00 Dyspnea, unspecified
CPT/HCPCS: 93225; 93226

== ENCOUNTER → 2023-04-06 14:08 | Outpatient (CLI) | payer OTHER, SELFPAY ==
--- NOTE | ~2023-04-06 | XR_ITS ---
XR heel LT min 2V 04/06/2023 15:06 Indication: Left heel pain Procedure: 2 views left heel/os calcis Comparison: No prior studies for comparison. Findings: No fracture, subluxation or dislocation. There is a degenerative calcaneal enthesophyte at the insertion of the Achilles. No focal soft tissue abnormality. No foreign bodies. Impression: 1: No significant bone or joint abnormality. Reviewed, dictated and finalized at location B. Impression: 1: No significant bone or joint abnormality.
--- NOTE | ~2023-04-06 | XR_ITS ---
EXAMINATION: XR ankle RT min 3V DATE: 04/06/2023 15:07 INDICATION: Right ankle pain. TECHNIQUE: 4 views of right ankle were obtained. COMPARISON: None. FINDINGS: Bone alignment is normal. No fracture. Joint spaces are normal. There is an enthesophyte at posterior aspect of calcaneal tuberosity. IMPRESSION: 1. No fracture. Reviewed, dictated and finalized at location A. IMPRESSION: 1. No fracture.
--- NOTE | ~2023-04-06 | XR_ITS ---
EXAMINATION: XR knee RT 3V DATE: 04/06/2023 15:06 INDICATION: Right knee pain. TECHNIQUE: 3 views of right knee including standing views were obtained. COMPARISON: None. FINDINGS: Bone alignment is normal. No fracture. There is mild tricompartmental osteoarthritis. No kn ee joint effusion. IMPRESSION: 1. Mild right knee osteoarthritis. Reviewed, dictated and finalized at location A.
== END ==
PROVIDERS: PCP Registered Nurse; Visit Provider Registered Nurse
DX: M79.672 Pain in left foot (principal); M25.571 Pain in right ankle and joints of right foot; M17.11 Unilateral primary osteoarthritis, right knee
CPT/HCPCS: 73562; 73610; 73650

== ENCOUNTER 2024-01-24 15:54 | Outpatient (CLI) | payer OTHER, SELFPAY ==
--- NOTE | ~2024-01-24 | US_ITS ---
EXAMINATION: US OB transvaginal INDICATION: Uncertain dates TECHNIQUE: Sonography of the pelvis was performed by transvaginal techniques. COMPARISON: None. RESULT: Uterus: 11.4 x 6.0 x 7.0 cm. Anteverted. Homogenous myometrium. Intrauterine gestational sac: Single present. Yolk sac: Present, measuring 6 mm. Embryo: Single present. [place] rump length: 1.21 cm, corresponding gestational age 7 weeks, 3 days. Gestational heart rate: present 150 bpm. Subgestational hematoma: Absent . Right ovary: Visualized. No adnexal mass. Left ovary: Not visualized. No adnexal mass. Pelvis free fluid: None. IMPRESSION: Single, live intrauterine gestation. Estimated Gestational Age: 7 weeks, 3 days by crown rump length. KHADAR by ultrasound 09/08/2024. Reviewed, dictated and finalized at location K. IMPRESSION: Single, live intrauterine gestation. Estimated Gestational Age: 7 weeks, 3 days by crown rump length. KHADAR by ultras ound 09/08/2024.
== END 2024-01-24 15:55 ==
PROVIDERS: PCP Advanced Practice Midwife; Visit Provider Advanced Practice Midwife
DX: Z36.87 Encounter for antenatal screening for uncertain dates (principal); Z3A.00 Weeks of gestation of pregnancy not specified
CPT/HCPCS: 76817

== ENCOUNTER 2024-04-19 12:13 | Outpatient (CLI) | payer OTHER, SELFPAY ==
--- NOTE | ~2024-04-19 | US_ITS ---
EXAMINATION: US OB /maternal detail DATE: 04/19/2024 13:52 INDICATION: anatomy screen TECHNIQUE: Multiple obstetric sonographic images performed. FINDINGS: There is a single living fetus in vertex presentation. The placenta is anterior fundal and not low-l john. Normal DENISSE measuring 15.4 (5th%-95%: 9.3-21.2 cm at 20 weeks estimated gestational age) heart rate of 134 beats per minute. Limited anatomic survey was suboptimal visualization of multiple structures to in part to patie nt body habitus. The following anatomy was identified as normal: Ventricles, choroid plexus and falx Nasal bone Diaphragm Stomach Kidneys Bladder 3 vessel cord and cord insertion Bilateral upper and lower extremities excluding the hands and feet The following biometric data were obtained: BPD: 4.4 cm -> 19 weeks 2 days Head circumference: 17.7 cm -> 20 weeks 2 days Abdominal circumference: 15.5 cm -> 20 weeks 5 days Femur length: 3.2 cm -> 20 weeks 0 days These measurements are concordant. Head circumference to abdominal circumference ratio: 1.14 (normal range 1.07-1.25). Estimated weight: 348 g (+/-) 52 g. or 12 oz. (+/-) 2 oz. IMPRESSION: 1. Single living fetus with vertex presentation with heart rate of 134 bpm. 2. Normal amniotic fluid index of 15.4 cm. 3. Incomplete anatomic survey with normal structures as detailed above. Unable to be diagnostic ally assessed with the provided images are the cerebellum, cisterna magna, nuchal fold, upper lip, he art, spine, hands and feet. Reviewed, dictated and finalized at location A. IMPRESSION: 1. Single living fetus with vertex presentation with heart rate of 134 b pm. 2. Normal amniotic fluid index of 15.4 cm. 3. Incomplete anatomic survey with normal structures as detailed above. U nable to be diagnostically assessed with the provided images are the cerebellum , cisterna magna, nuchal fold, upper lip, heart, spine, hands and feet.
== END 2024-04-19 12:14 | disposition home or self-care (01) ==
LOC: ANHIMG 12:17
PROVIDERS: PCP Registered Nurse; Visit Provider Obstetrics & Gynecology Gynecology
DX: Z36.9 Encounter for antenatal screening, unspecified (principal)
CPT/HCPCS: 76805

== ENCOUNTER 2024-05-26 10:14 | Outpatient (CLI) | payer OTHER, SELFPAY ==
--- NOTE | 2024-05-26 | ECG_ITS ---
Test Date: 2024-05-26 10:35:36 Measurements Intervals [place] Rate: 89 P: 50 GA: 150 QRS: 51 QRSD: 90 T: 3 QT: 363 QTc: 442 Interpretive Statements SINUS RHYTHM WITH SINUS ARRHYTHMIA BORDERLINE T WAVE ABNORMALITY- INFERIOR LEADS BASELINE ARTIFACT- I, II, III, AVR, AVL, AVF, V1-V2 BORDERLINE ECG No previous ECG available for comparison Electronically Signed On 05-26-2024 11:12:02 CDT by Omero Umanzor D.O.
== END 2024-05-26 10:15 | disposition home or self-care (01) ==
LOC: ANHCARD 10:16
PROVIDERS: PCP Registered Nurse; Visit Provider Advanced Practice Midwife
DX: R94.31 Abnormal electrocardiogram [ECG] [EKG] (principal); R00.2 Palpitations
CPT/HCPCS: 93005

== ENCOUNTER 2024-06-22 10:04 | Emergency (ER) | payer OTHER, SELFPAY ==
[2024-06-22 10:18] VITALS: BP 132/75; PULSE 95; RESP 18; TEMP 35.7; O2SAT 100
--- NOTE | 2024-06-22 10:34 | ED.EXTPRO ---
HPI - Extremity Problem General Chief complaint: Extremity Injury, Upper Stated complaint: RT wrist pain Time Seen by Provider: 06/22/24 10:24 Source: patient Mode of arrival: ambulatory Limitations: no limitations History of Present Illness HPI Narrative: Christin is a 28-year-old female patient presenting to the clinic today with complaints of right wrist pain. She reports she woke up this morning with right wrist pain. No known injury. She is currently 30 weeks . Is having pain to the ulnar aspect of the right wrist with some pain radiating into the fingers. No history of carpal tunnel syndrome. Thinks she may have slept on wrong. She denies any injury or pain to her neck, shoulder, or elbow. Related Data Home Medications Medication Instructions Recorded Confirmed loratadine 10 mg tablet (Claritin) 10 mg PO DAILY 02/19/22 06/22/24 acetazolamide 250 mg tablet 500 mg PO DAILY 03/04/22 06/22/24 Allergies Allergy/AdvReac Type Severity Reaction Status Date / Time No Known Allergies Allergy Verified 05/27/24 19:47 Review of Systems Review of Systems: Pertinent positives per HPI. Patient denies any fever, chills, rash, headache, visual changes, dizziness, cough, runny nose, sore throat, shortness of breath, chest pain, palpitations, nausea, vomiting, diarrhea, constipation, abdominal pain, or any urinary issues. [facility] Past Medical History Medical History History of kidney stones Idiopathic intracranial hypertension Morbid obesity with BMI of 50.0-59.9, adult Surgical History Surgical History History of tonsillectomy Family History Family History Father Hypertension Lung cancer Father No problems noted. Grandparent Lung cancer Diabetes mellitus Grandparent Diabetes mellitus Grandparent Breast cancer Social History Social History Smoking status: Never smoker Substance use: never Gender identity (if verbalized by the patient): Female Spiritual care concerns: Yes (requests rf design engineer to visit) Comments At the time of my signature, I reviewed and agree with the nursing past medical, surgical, social, and family history. There is no relevant family history pertinent to the patient complaint. Exam Narrative: General: Well-developed, well nourished, in no apparent distress Head: Normocephalic, atraumatic. Cardio: Regular rate and rhythm, s1 and s2 normal, no murmur appreciated. Resp: Clear to auscultation bilaterally, no rhonchi, rales, wheezing or rubs. Musculoskeletal: No deformity, tender to palpation over the right ulnar wrist with radiation of pain going and to the 5th finger and into the forearm, positive Tinel's over the ulnar aspect of the right wrist, grossly normal range of motion, hand grasp- muscle strength strong and equal, peripheral pulse strong, no edema, no cyanosis, normal gait and station Course Course Emergency Course: Portions of this record may have been created with voice recognition software. Level of Care: Express Care Visit Vital Signs Vital signs: Vital Signs Temperature 35.7 C L 06/22/24 10:18 Pulse Rate 95 06/22/24 10:18 Respiratory Rate 18 06/22/24 10:18 Blood Pressure 132/75 06/22/24 10:18 Pulse Oximetry 100 06/22/24 10:18 Oxygen Delivery Room Air 06/22/24 10:18 Temperature 35.7 C L 06/22/24 10:18 Pulse Rate 95 06/22/24 10:18 Respiratory Rate 18 06/22/24 10:18 Blood Pressure 132/75 06/22/24 10:18 Pulse Oximetry 100 06/22/24 10:18 Oxygen Delivery Room Air 06/22/24 10:18 Vital signs reviewed MDM - Extremity (Nontraumatic) MDM Narrative Medical decision making narrative: At the time of visit patient is resting comfortably on the exam table. Patient appears to be nontoxic. Plan: I suspect patient has right wrist tendinitis. Patient is 30 weeks . Supportive measures were discussed with the patient and they voiced understanding discharge instructions and agrees to treatment plan. Return precautions reviewed Differential Diagnosis Differential diagnosis: Likely other (Wrist sprain, wrist fracture, wrist tendinitis, carpal tunnel syndrome) Discharge Plan Discharge Clinical Impression: Right wrist tendonitis Patient Disposition: Home, Self-Care Condition: Stable Instructions: Antibiotic Form, Tendinitis (ED) Additional Instructions: Rest, ice, elevate, and wear a Velcro wrist splint as discussed Tylenol for pain as discussed. May apply Aspercreme, blue emu, or lidocaine to the affected area to help alleviate pain Follow up with your PCP if symptoms persist more than 1 week. Prescriptions: No Action loratadine [Claritin] 10 mg Tablet 10 mg PO DAILY acetazolamide 250 mg tablet 500 mg PO DAILY Follow-up/Referrals: Sheree,EDUARDO Hooks [Primary Care Provider] - Time of Disposition: 10:36 Quality NIHSS Nursing Documentation ED NIHSS nursing documentation: reviewed/agree
== END 2024-06-22 10:42 | disposition home or self-care (01) ==
PROVIDERS: Emergency Provider Nurse Practitioner Family; PCP Registered Nurse
DX: O99.891 Other specified diseases and conditions complicating pregnancy (principal); Z3A.30 30 weeks gestation of pregnancy; M77.8 Other enthesopathies, not elsewhere classified
CPT/HCPCS: 99212; G0463

== ENCOUNTER 2024-08-23 14:04 | Outpatient (RCR) | payer OTHER, SELFPAY ==
[2024-08-03 11:10] VITALS: BP 110/56; PULSE 85
[2024-08-23 15:15] VITALS: BP 111/53; PULSE 90
== END 2024-09-21 16:44 | disposition home or self-care (01) ==
LOC: ANHOBOP 14:04
PROVIDERS: PCP Registered Nurse; Visit Provider Obstetrics & Gynecology Gynecology
DX: O36.8130 Decreased fetal movements, third trimester, not applicable or unspecified (principal); Z3A.35 35 weeks gestation of pregnancy
CPT/HCPCS: 59025

== ENCOUNTER 2024-09-05 10:04 | Outpatient (CLI) | payer OTHER, SELFPAY ==
[2024-09-05 10:41] LABS: Hematocrit 35.4 % (37.0-47.0); Hemoglobin 11.3 g/dL (12.0-15.0); Mean Corpuscular HGB Conc 31.9 g/dl (32-36); Mean Corpuscular Hemoglobin 26.2 pg (26-34); Mean Corpuscular Volume 82.1 fl (80-100); Mean Platelet Volume 10.7 fl (7.4-10.4); Platelet Count Result 279 k/mm3 (150-375); Red Blood Count 4.31 M/mm3 (4.2-5.4); Red Cell Distribution Width 16.6 % (11.5-14.5); White Blood Count 11.4 K/mm3 (4.5-10.0)
--- OUTSIDE RECORDS SUMMARY | 2024-09-05 11:03 | XMS_ITS | Patient Health Summary ---
Author Organization [facility] Address [address] [place] [address] Care Team Providers Care Cloth Inspector Name Role Phone Unavailable Primary Care Provider Unavailabl e Note from [facility],non-owned Affiliates and Associated Physician Practices is amultiple site organization consisting of ambulatory clinics and hospital sitesin [place], [place] and [place]. This disclosure is being madepursuant to the Care Everywhere program and may not contain all information available regarding this patient. Last updated 18.[facility] Social History Tobacco Use Types Packs/Day Years Used Date Smoking Tobacco: Never Assessed Sex and Gender Information Value Date Recorded Sex Assigned at Not on file Gender Identity Not on file Sexual Orientation Not on file Procedures * DERMATOPATHOLOGY(Performed 09/25/2020) * DERMATOPATHOLOGY(Performed 11/28/2018) Results * DERMATOPATHOLOGY (09/25/2020 3:33 AM CLINICAL ASSOCIATE) Only the most recent of2 resultswithin the time period is included. Case Report Dermatopathology Report Case: [id number] Authorizing Provider: Viridiana Olivia DO Collected: 09/25/2020 03:33 AM Ordering Location: [facility] DermPath Lab Received: 09/27/2020 12:47 PM Pathologist: Robin Hadley MD Specimen: Skin, superior vulva 5:01 PM CLINICAL ASSOCIATE DERMATOPATHOLOGY LABORATORY Final Diagnosis Specimen A. SKIN, superior vulva: ACROCHORDONS (SOFT FIBROMAS, SKIN TAGS) (L91.8) 5:[address] [facility] DERMATOPATHOLOGY LABORATORY Clinical History ACR vs CONDY. 5:[address] [facility] DERMATOPATHOLOGY LABORATORY Gross Description Specimen A: Received is one formalin filled container labeled with the patient's name and designated superior vulva. The specimen consists of 2 pieces of shave measuring [id number] and [id number], bisected Jar 0. 1 5:[address] [facility] DERMATOPATHOLOGY LABORATORY Microscopic Description Specimen A. SKIN, superior vulva: Sections show multiple polypoid pieces of skin each with a gently folded epidermis surrounding a connective tissue core in which fat and collagen are intermingled. 1 5:[address] [facility] DERMATOPATHOLOGY LABORATORY Disclaimer An external and internal positive and negative controls are appropriate for the histochemical, immunohistochemical and immunofluorescence stain(s) in this case (if any), except where stated explicitly. The performance characteristics of the stain(s) cited in this report were developed and its performance characteristic determined by the Dermatopathology Laboratory at [facility], directed by Dr. Marixa Hadley. These tests need not be, and therefore are not, approved by the [place] Food and Drug Administration. The tests are used for clinical purposes. Billing Codes Specimen Charges Stain Charges 45766 1 1 5:[address] [facility] DERMATOPATHOLOGY LABORATORY Embedded Images 1 5:[address] [facility] DERMATOPATHOLOGY LABORATORY Pathology/Cytolo gy TISSUE SPECIMEN FROM SKIN / Unknown 09/25/2020 3:33 AM CLINICAL ASSOCIATE 09/27/2020 12:47 PM CLINICAL ASSOCIATE Viridiana Olivia DO LAB - PATHOLOGY/C YTOLOGY ORDERABLES DERMATOPATHOLOGY LABORATORY [facility] - Department of Dermatology [address], [address] [phone]
--- OUTSIDE RECORDS SUMMARY | 2024-09-05 11:03 | XMS_ITS | Encounter Summary ---
Author Organization [facility] Address [address] [place] [address] Care Team Providers Care Mud Mixer Helper Name Role Phone Unavailable Primary Care Provider Unavailabl e Encounter Details Date Type Department Care Team (Late st Contact Info) Description 11/29/2018 Lab Requisition [facility] Care DermPath Lab [address] [place] [id number] Viridiana Olivia DO [address] [place] [address] Social History Tobacco Use Types Packs/Day Years Used Date Smoking Tobacco: Never Assessed Sex and Gender Information Value Date Recorded Sex Assigned at Not on file Gender Identity Not on file Sexual Orientation Not on file documented as of this encounter Plan of Treatment Not on file documented as of this encounter Procedures Procedure Name Priority Date/Time Associated Diagnosis Comments DERMATOPATHOLOGY Routine 11/28/2018 12:0 0 AM CDT documented in this encounter Results * DERMATOPATHOLOGY (11/28/2018 12:00 AM CDT) Case Report Dermatopathology Report Case: [id number] Authorizing Provider: Viridiana Olivia DO Collected: 11/28/2018 12:00 AM Pathologist: Robin Hadley MD Received: 11/29/2018 07:06 AM Specimen: Skin, right lower abdomen 9 2:27 PM CDT DERMATOPATHOLOGY LABORATORY Final Diagnosis Specimen A. SKIN, right lower abdomen: COMPOUND MELANOCYTIC NEVUS (D22.5) 9 2:27 PM CDT DERMATOPATHOLOGY LABORATORY Clinical History Changing mole CMNCF, R/O atypia. Irr color. 9 2:27 PM CDT DERMATOPATHOLOGY LABORATORY Gross Description Specimen A: Received is one formalin filled container labeled with the patient's name and designated right lower abdomen. The specimen consists of a shave measuring [id number]. Jar 0. 2:27 PM T DERMATOPATHOLOGY LABORATORY Microscopic Description Specimen A. SKIN, right lower abdomen: There are nests of melanocytes at the dermal-epidermal junction and within the dermis which are present in four sections. 2:27 PM T DERMATOPATHOLOGY LABORATORY Disclaimer An external and internal positive and negative controls are appropriate for the histochemical, immunohistochemical and immunofluorescence stain(s) in this case (if any), except where stated explicitly. The performance characteristics of the stain(s) cited in this report were developed and its performance characteristic determined by the Dermatopathology Laboratory at [facility], directed by Dr. Marixa Hadley. These tests need not be, and therefore are not, approved by the [place] Food and Drug Administration. The tests are used for clinical purposes. Billing Codes Specimen Charges Stain Charges 31483 1 2:27 PM CDT DERMATOPATHOLOGY LABORATORY Embedded Images 2:27 PM CDT DERMATOPATHOLOGY LABORATORY Pathology/Cytolog y TISSUE SPECIMEN FROM SKIN / Unknown 11/28/2018 11/29/2018 7:06 AM CDT Viridiana Olivia DO LAB - PATHOLOGY/C YTOLOGY ORDERABLES DERMATOPATHOLOGY LABORATORY [facility] - Department of Dermatology [address] [place] [address] 5th Floor Lab [address] [phone] documented in this encounter Visit Diagnoses Not on filedocumented in this encounter
--- OUTSIDE RECORDS SUMMARY | 2024-09-05 11:03 | XMS_ITS | Clinical Summary ---
Author Organization [facility] Address [facility] [place] [address] Care Team Providers Care Cellar Packer Name Role Phone Neva Bentley Primary Care Provider + Allergies No known active allergies Medications ascorbic acid (VITAMIN C) 1,000 mg tablet Take 1,000 mg by mouth daily Active azelaic acid 15 % gel APPLY TO FACE EVERY NIGHT AT BEDTIME 1 Active cefdinir (OMNICEF) 300 mg capsule 1 Active clindamycin (CLEOCIN T) 1 % lotion APPLY TO THE AFFECTED AREA EVERY MORNING 1 Active famotidine (PEPCID) 20 mg tablet Take 20 mg by mouth 2 (two) times a day 0 Active ferrous sulfate 325 mg (65 mg of elemental iron) tablet Take 1 tablet by mouth daily Active loratadine (CLARITIN) 10 mg tablet Take 1 tablet (10 mg total) by mouth daily Active albuterol HFA (PROVENTIL HFA,VENTOLIN HFA,PROAIR HFA) 90 mcg/actuation inhaler 2 puffs every 6 (six) hours as needed for wheezing 3 Active amoxicillin (AMOXIL) 875 mg tablet 3 Active benzonatate (TESSALON) 100 mg capsule 4 Active butalbital-acet aminophen-caffe ine (ESGIC) 50-325-40 mg per tablet Take 1 tablet by mouth every 4 (four) hours as needed 2 Active guaiFENesin-cod eine (GUAITUSS AC) liquid 100-10 mg/5 mL TAKE 5 ML BY MOUTH EVERY 4 HOURS NEEDED FOR COUGH 3 Active Paxlovid tablets,dose pack tablets in a dose pack TAKE 2 NIRMATRELVIR TABLETS AND 1 RITONAVIR TABLET TOGETHER BY MOUTH TWICE DAILY FOR 5 DAYS 4 Active predniSONE (DELTASONE) 20 mg tablet Take two tabs once daily for 3 days and one tab once daily for 2 days 4 Active baclofen (LIORESAL) 10 mg tablet Take 1 tablet (10 mg total) by mouth 3 (three) times a day as needed for muscle spasms 30 tablet 3 4 Active acetaZOLAMIDE (DIAMOX) 125 mg tablet Take 1 tablet (125 mg total) by mouth 2 (two) times a day 180 tablet 1 4 Active metoclopramide (REGLAN) 10 mg tablet Take 1 tablet (10 mg total) by mouth every 6 (six) hours as needed 4 Active ondansetron (ZOFRAN) 4 mg tablet Take by mouth every 8 (eight) hours as needed 4 Active butalbital-acet aminophen-caffe ine (FIORICET) 50-300-40 mg per capsule 4 Active Active Problems Problem Noted Date Diagnosed Date Allergic rhinitis 09/28/2023 Anemia 05/28/2020 Neck pain 05/06/2020 Assessment & Plan (06/03/2020 10:42 AM SHIPBOARD INTELLIGENCE ANALYST): Patient's MRI cervical spine is normal by report. She can continue home exercises as well as [id number] anti-inflammatories on an as-needed basis. Assessment & Plan (05/06/2020 10:19 AM CDT): Patient has several week history of neck pain not responsive to repeated chiropractic treatments. There is no radiation of pain down either arm nor accompanying weakness. Given the refractive miss of the pain, I will pursue neuroimaging with MRI cervical spine. I will see her back thereafter. Papilledema of both eyes 04/02/2020 Assessment & Plan (05/06/2020 10:21 AM CDT): Patient remains with mild papilledema in both eyes. Spinal fluid examination was normal but she had been already started on acetazolamide which may have normalized the CSF pressure. The papilledema may be delayed in resolution. Given her persistent headaches as well as neck ache, I will increase her acetazolamide to 500 mg BID, and I plan to see her back upon completion of her neuroimaging. Assessment & Plan (04/02/2020 12:31 PM CDT): Patient has recent onset of visual changes with ophthalmological findings of bilateral papilledema. MRI imaging of the brain and orbits is normal save for some flattening of the posterior orbs. Given her body habitus, clinical history, and papilledema findings bilaterally, it is most likely the sequelae to intracranial hypertension. I will set her up for a spinal fluid examination for further investigation. She will remain on acetazolamide in the interim. Benign intracranial hypertension 07/25/2019 Overview (09/28/2023): Last Assessment & Plan: Patient has improvement of her papilledema and headache with increased dose of acetazolamide 1000 mg b.i.d.. She does understand the paresthesias associated with treatment will likely subside with time. I have renewed her medication as scheduled, and I plan to see her back in 6 months. Last Assessment & Plan: Patient continues on acetazolamide 500 mg b.i.d. with rare headaches and no evidence of papilledema on examination. She still does have some occasional paresthesias in her limbs associated with usage of acetazolamide, and patient has been counseled that these are likely to subside with time. I have renewed her acetazolamide as prescribed. She will follow-up in neurology clinic in a year. Assessment & Plan (04/23/2021 9:53 AM CDT): Patient continues on acetazolamide 500 mg b.i.d. with rare headaches and no evidence of papilledema on examination. She still does have some occasional paresthesias in her limbs associated with usage of acetazolamide, and patient has been counseled that these are likely to subside with time. I have renewed her acetazolamide as prescribed. She will follow-up in neurology clinic in a year. Assessment & Plan (06/03/2020 10:42 AM SHIPBOARD INTELLIGENCE ANALYST): Patient has improvement of her papilledema and headache with increased dose of acetazolamide 1000 mg b.i.d.. She does understand the paresthesias associated with treatment will likely subside with time. I have renewed her medication as scheduled, and I plan to see her back in 6 months. Assessment & Plan (05/06/2020 10:22 AM CDT): Clinically I believe patient has pseudotumor cerebri. I will increase her acetazolamide to 500 mg b.i.d. Obesity 05/07/2014 Tension type headache 05/07/2014 Surgical History Surgery Date Site/Laterality Comments NO PAST SURGERIES Medical History Medical History Date Comments Headache Family History Medical History Relation Name Comments No Known Problems Brother Hypertension Father IIH Father Lung cancer Father No Known Problems Mother No Known Problems Sister Relation Name Status Comments Brother Alive Father Alive Mother Alive Sister Alive Social History Tobacco Use Types Packs/Day Years Used Date Smoking Tobacco: Never Smokeless Tobacco: Never Tobacco Cessation:Counseling Given: Not Answered Personal Safety Answer Date Recorded Getting School Help Needed Not on file 09/04 Comments Unknown Sex and Gender Information Value Date Recorded Sex Assigned at Not on file Legal Sex Female 7:47 PM SHIPBOARD INTELLIGENCE ANALYST Gender Identity Not on file Sexual Orientation Not on file Obstetrics History Last Filed Vital Signs Vital Sign Reading Time Taken Comments Blood Pressure 116/70 03/29/2024 2:51 PM CDT Pulse 84 03/29/2024 2:51 PM CDT Temperature 36.6 C (97.8 F) 04/15/2022 3:27 PM CDT Respiratory Rate 14 03/23/2021 4:02 PM CDT Oxygen Saturation 96% 03/23/2021 4:02 PM CDT Inhaled Oxygen Concentration - - Weight 157.4 kg (347 lb) 03/29/2024 2:51 PM CDT Height 170.2 cm (5' 7 ) 03/29/2024 2:51 PM CDT Body Mass Index 54.35 03/29/2024 2:51 PM CDT Plan of Treatment Health Maintenance Due Date Last Done Comments Cervical Cancer Screening 1993 Depression Screening 1993 Hepatitis C Screening 1993 Varicella Vaccines (1 of 2 - 13+ 2-dose series) 2006 Hepatitis B Screening 2011 Regular Well Visit/Exam 18-64 2011 Covid-19 Vaccine (4 - 2023-2 5 season) 2024 11/15/2021, 12/04/2020, 11/02/2020 Influenza Vaccine (#1) 2024 3, 07/03/2021, 05/22/2020 DTaP/Tdap/Td Vaccine (2 - Td or Tdap) 05/22/2030 05/22/2020 HPV Vaccines Aged Out No longer eligi ble based on patient's age to complete this topic Pneumococcal vaccine <65 Aged Out No longer eligible based on patient's age to complete this topic Insurance rumr: turn off the lightsALANNA OPEN ACCESS R [facility] Care Teams Cellar Packer Relationship Specialty Start Date End Date Neva Bentley PA [address] [place] [id number] PCP - General Nurse Practitioner 04/01/20
--- OUTSIDE RECORDS SUMMARY | 2024-09-05 11:03 | XMS_ITS | Referral Summary ---
Author Organization [facility] Address [address] [place] [address] Care Team Providers Care Trustee Of Estate Name Role Phone Unavailable Primary Care Provider Unavailabl e Source Comments [facility],non-owned Affiliates and Associated Physician Practices is amultiple site organization consisting of ambulatory clinics and hospital sitesin [place], [place], [place] and [place]. This disclosure is being madepursuant to the Care Everywhere program and may not contain all information available regarding this patient. Last updated 18.[facility] Social History Tobacco Use Types Packs/Day Years Used Date Smoking Tobacco: Never Assessed Sex and Gender Information Value Date Recorded Sex Assigned at Not on file Gender Identity Not on file Sexual Orientation Not on file Plan of Treatment Not on file
--- OUTSIDE RECORDS SUMMARY | 2024-09-05 11:03 | XMS_ITS | Clinical Summary ---
Author Organization [facility] Address [address] [place] [phone] Phone Care Team Providers Care Supervisor [employer] Name Role Phone Unavailable Primary Care Provider Unavailabdirizak e Encounters Date Type Department Care Team Description 08/21/2024 External Device Data STL ABSTRACTION Provider, Abstract 08/15/2024 External Device Data STL ABSTRACTION Provider, Abstract 08/15/2024 External Device Data STL ABSTRACTION Provider, Abstract 08/09/2024 7:22 AM SPONGE CLIPPER - 08/09/2024 11:59 PM SPONGE CLIPPER Hospital Encounter [facility] Maribell Olea [address] [place] [phone] Mustapha Coombs MD Discharge Disposition: Home or Self Care 08/08/2024 External Device Data STL ABSTRACTION Provider, Abstract 07/12/2024 9:41 AM SPONGE CLIPPER - 07/12/2024 11:59 PM SPONGE CLIPPER Hospital Encounter [facility] Maribell Olea [address] [place] [phone] Mustapha Coombs MD Discharge Disposition: Home or Self Care 06/14/2024 1:30 PM SPONGE CLIPPER - 06/14/2024 11:59 PM SPONGE CLIPPER Hospital Encounter [facility] Maribell Olea [address] [place] [phone] Lilly Rosales MD Discharge Disposition: Home or Self Care from Last 3 Months Social History Tobacco Use Types Packs/Day Years Used Date Smoking Tobacco: Never Assessed Estimated Date of Delivery Comme nts Yes 09/05/2024 Based on last me nstrual period of 11/30/2023 Sex and Gender Information Value Date Recorded Sex Assigned at Not on file Legal Sex Female 11:20 AM CDT Gender Identity Not on file Sexual Orientation Not on file Plan of Treatment Health Maintenance Due Date Last Done Comments HEPATITIS B VACCINES (1 of 3 - 19+ 3-dose series) 2012 CERVICAL CANCER SCREENING 2023 INFLUENZA VACCINE (#1) 2024 3, 07/03/2021, 05/22/2020 COVID-19 Vaccine (3 - 2023-2 5 season) 2024 12/04/2020, 11/02/2020 Preventative Visit- Commercial 07/25/2024 04/27/2023, 07/03/2021, 05/20/2020 DTAP/TDAP/TD VACCINES (2 - T d or Tdap) 05/22/2030 05/22/2020 HPV VACCINES Aged Out No longer eligi ble based on patient's age to complete this topic RSV VACCINE (60+ or ) (No Doses Required) Completed Procedures Procedure Name Priority Date/Time Associated Diagnosis Comments US OB FOLLOW UP PER FETUS Routine 08/09/2024 7:46 AM SPONGE CLIPPER Obesity affecting in third trimester, unspecified obesity type US OB FOLLOW UP PER FETUS Routine 07/12/2024 10:05 AM SPONGE CLIPPER Obesity affecting in third trimester, unspecified obesity type US OB FOLLOW UP PER FETUS Routine 06/14/2024 2:18 PM SPONGE CLIPPER Encounter for screening for malformation from Last 3 Months Results * US OB FOLLOW UP PER FETUS (08/09/2024 7:46 AM SPONGE CLIPPER) Only the most recent of3 resultswithin the time period is included. Anatomical Region Laterality Modality Pelvis Ultrasound 08/09/2024 7:25 AM SPONGE CLIPPER Narrative 08/09/2024 8:15 AM SPONGE CLIPPER STL FOLLOW UP ----- Pat. Name: TRISH GOMEZ Study Date: 08/09/2024 7:25am Pat. NO: [id number] Referring MD: AMY LINDO MD Site: [facility] Operator: Rosita Feng RDMS : 1995 Age: 29 ----- INDICATION ----- Screening Follow-Up Maternal Obesity (BMI>40) Complicating CODING ----- Diagnoses Z3A.36: Weeks of gestation O99.213: Obesity complicating Z36.2: Encounter for other screening follow-up Procedures 19568: Ultrasound, uterus, real time with image documentation, follow up, transabdominal approach per fetus HISTORY ----- OB History 2. Para 1 MATERNAL ASSESSMENT ----- Physical Exam Weight 154 kg. BMI 53.25 kg/m METHOD ----- Transabdominal ultrasound examination ----- Thurman . Number of fetuses: 1 DATING ----- GA by prior assessment 36 w + 1 d KHADAR by prior assessment: 09/05/2024 Ultrasound examination on: 08/09/2024 GA by U/S based upon: AC, BPD, EFW, Femur, HC GA by U/S 37 w + 2 d KHADAR by U/S: 08/28/2024 Method of dating: Restore dating from previous exam Assigned: based on stated KHADAR, selected on 05/09/2024 Assigned GA 36 w + 1 d Assigned KHADAR: 09/05/2024 BIOMETRY ----- BPD 90.7 mm 36w 5d 76% Hadlock OFD 119.2 mm -/- >99% Liset HC 336.1 mm 38w 3d 77% Hadlock AC 336.0 mm 37w 4d 90% Hadlock Femur 70.6 mm 36w 1d 47% Hadlock HC / AC 1.00 37% Nicolaides Weight Calculation: EFW 3,148 g 37w 4d 79% Hadlock EFW (lb,oz) 6 lb 15 oz EFW by Hadlock ([id number]) Head / Face / Neck Biometry: Life Sciences Director 3.1 mm Extremities / Bony Struc Biometry: FL / BPD 0.78 FL / HC 0.21 FL / AC 0.21 GENERAL EVALUATION ----- Cardiac activity present. FHR 141 bpm. movements: present. Presentation: cephalic Placenta: Placental site: anterior Umbilical cord: Insertion site: placental insertion: normal Amniotic fluid: Amount of AF: normal amount. MVP 5.0 cm. DENISSE 16.0 cm. Q1 4.0 cm, Q2 3.9 cm, Q3 5.0 cm, Q4 3.1 cm ANATOMY ----- The following structures appear normal: Head / Neck Cranium. Lateral ventricles. Cavum septi pellucidi. Heart / Thorax Diaphragm. Abdomen Stomach. Kidneys. Bladder. sex: female. GROWTH OVERVIEW ----- Exam date GA BPD (mm) HC (mm) AC (mm) FL (mm) HL (mm) EFW (g) 05/09/2024 23w 0d 54.8 34% 209.9 38% 187.1 58% 44.6 88% 38.5 58% 636 82% 06/14/2024 28w 1d 70.2 40% 258.2 18% 234.5 31% 56.1 74% 1,224 48% 07/12/2024 32w 1d 80.9 52% 309.4 77% 284.2 58% 60.9 24% 1,970 48% 08/09/2024 36w 1d 90.7 76% 336.1 77% 336.0 90% 70.6 47% 3,148 79% COMMENT ----- Patient's name and date of were verified by the nursing agency manager prior to the exam IMPRESSION ----- -Single living fetus with a gestational age of 36w 1d based on the reported dates. -cephalic presentation. -The EFW is 3148 g which is at the 79%. The abdominal circumference is at the 90%. -Unremarkable limited anatomy noted to extent of ultrasound views. -The amniotic fluid is normal for gestational age. (DENISSE of 16 cm, MVP of 5 cm) -The placenta is anterior Further sonogram follow up as clinically indicated Thank you for allowing us to participate in the care of this patient. Procedure Note Jenny Souza MD / Sherice Fox MD - 08/09/2024 STL FOLLOW UP ----- Pat. Name:Mina GOMEZ Date:08/09/2024 7:25am Pat. NO: [id number] MD:AMY LINDO [facility]Ros[facility] Feng RDMS :1995Age:29 ----- INDICATION ----- Screening Follow-Up Maternal Obesity (BMI>40) Complicating CODING ----- Diagnoses Z3A.36: Weeks of gestation O99.213: Obesity complicating Z36.2: Encounter for other screeningfollow-up Procedures 39395: Ultrasound, uterus, real time withimage documentation, follow up, transabdominal approach per fetus HISTORY ----- OB History 2. Para 1 MATERNAL ASSESSMENT ----- Physical Exam Weight 154 kg. BMI 53.25 kg/m METHOD ----- Transabdominal ultrasound examination ----- Thurman . Number of fetuses: 1 DATING ----- GA by prior zaeargiiok12 w + 1 d KHADAR by prior assessment:09/05/2024 Ultrasound examination on:08/09/2024 GA by U/S based upon:AC, BPD, EFW, Femur, HC GA by U/S37 w + 2 d KAHDAR by U/S:08/28/2024 Method of dating:Restore dating from previous exam Assigned:based on stated KHADAR, selected on 05/09/2024 Assigned GA36 w + 1 d Assigned KHADAR:09/05/2024 BIOMETRY ----- BPD 90.7 mm 36w 5d 76%Hadlock OFD 119.2 mm -/- >99%Liset HC 336.1 mm 38w 3d 77%Hadlock AC 336.0 mm 37w 4d 90%Hadlock Femur 70.6 mm 36w 1d 47%Hadlock HC / AC 1.00 37%Nicolaides Weight Calculation: EFW 3,148 g 37w 4d79% Hadlock EFW (lb,oz) 6 lb 15 oz EFW by Hadlock (VTR-[id number]-FL) Head / Face / Neck Biometry: Life Sciences Director 3.1mm Extremities / Bony Struc Biometry: FL / BPD 0.78 FL / HC 0.21 FL / AC 0.21 GENERAL EVALUATION ----- Cardiac activity present. FHR 141 bpm. movements: present.Presentation: cephalic Placenta: Placental site: anterior Umbilical cord: Insertion site: placental insertion: normal Amniotic fluid: Amount of AF: normal amount. MVP 5.0 cm. DENISSE 16.0 cm. Q14.0 cm, Q2 3.9 cm, Q3 5.0 cm, Q4 3.1 cm ANATOMY ----- The following structures appear normal: Head / Neck Cranium. Lateral ventricles. Cavum septipellucidi. Heart / Thorax Diaphragm. Abdomen Stomach. Kidneys. Bladder. sex: female. GROWTH OVERVIEW ----- Exam date GA BPD (mm) HC (mm) AC (mm) FL(mm) HL (mm) EFW (g) 05/09/2024 23w 0d 54.8 34% 209.9 38% 187.1 58%44.6 88% 38.5 58% 636 82% 06/14/2024 28w 1d 70.2 40% 258.2 18% 234.5 31%56.1 74% 1,224 48% 07/12/2024 32w 1d 80.9 52% 309.4 77% 284.2 58%60.9 24% 1,970 48% 08/09/2024 36w 1d 90.7 76% 336.1 77% 336.0 90%70.6 47% 3,148 79% COMMENT ----- Patient's name and date of were verified by the nursing agency manager prior tothe exam IMPRESSION ----- -Single living fetus with a gestational age of 36w 1d based on thereported dates. -cephalic presentation. -The EFW is 3148 g which is at the 79%. The abdominal circumference is atthe 90%. -Unremarkable limited anatomy noted to extent of ultrasound views. -The amniotic fluid is normal for gestational age. (DENISSE of 16 cm, MVP of 5cm) -The placenta is anterior Further sonogram follow up as clinically indicated Thank you for allowing us to participate in the care of this patient. us Mustapha Coombs MD ORDERABLES Benjamin kirkland - Final from Last 3 Months Insurance [facility] CHOICE [id number]
--- OUTSIDE RECORDS SUMMARY | 2024-09-05 11:03 | XMS_ITS | Encounter Summary ---
Author Organization [facility] Address [address] [place] [address] Care Team Providers Care Regional Clinical Research Associate Name Role Phone Unavailable Primary Care Provider Unavailabl e Encounter Details Date Type Department Care Team (Late st Contact Info) Description 09/27/2020 Lab Requisition [facility] [address] [place] [phone] Viridiana Olivia DO [address] [facility] [address] [place] [address] Social History Tobacco Use Types Packs/Day Years Used Date Smoking Tobacco: Never Assessed Sex and Gender Information Value Date Recorded Sex Assigned at Not on file Gender Identity Not on file Sexual Orientation Not on file documented as of this encounter Plan of Treatment Not on file documented as of this encounter Procedures Procedure Name Priority Date/Time Associated Diagnosis Comments DERMATOPATHOLOGY Routine 09/25/2020 3:33 AM CONCRETE PIPE MAKING MACHINE OPERATOR documented in this encounter Results * DERMATOPATHOLOGY (09/25/2020 3:33 AM CONCRETE PIPE MAKING MACHINE OPERATOR) Case Report Dermatopathology Report Case: [id number] Authorizing Provider: Viridiana Olivia DO Collected: 09/25/2020 03:33 AM Ordering Location: [facility] Received: 09/27/2020 12:47 PM Pathologist: Robin Hadley MD Specimen: Skin, superior vulva 5:01 PM CONCRETE PIPE MAKING MACHINE OPERATOR DERMATOPATHOLOGY LABORATORY Final Diagnosis Specimen A. SKIN, superior vulva: ACROCHORDONS (SOFT FIBROMAS, SKIN TAGS) (L91.8) 5:01 PM CONCRETE PIPE MAKING MACHINE OPERATOR DERMATOPATHOLOGY LABORATORY Clinical History ACR vs CONDY. 5:01 PM [facility] DERMATOPATHOLOGY LABORATORY Gross Description Specimen A: Received is one formalin filled container labeled with the patient's name and designated superior vulva. The specimen consists of 2 pieces of shave measuring [id number] and [id number], bisected Jar 0. 5:01 PM [facility] DERMATOPATHOLOGY LABORATORY Microscopic Description Specimen A. SKIN, superior vulva: Sections show multiple polypoid pieces of skin each with a gently folded epidermis surrounding a connective tissue core in which fat and collagen are intermingled. 5:01 PM [facility] DERMATOPATHOLOGY LABORATORY Disclaimer An external and internal positive and negative controls are appropriate for the histochemical, immunohistochemical and immunofluorescence stain(s) in this case (if any), except where stated explicitly. The performance characteristics of the stain(s) cited in this report were developed and its performance characteristic determined by the Dermatopathology Laboratory at [facility], directed by Dr. Marixa Hadley. These tests need not be, and therefore are not, approved by the [place] Food and Drug Administration. The tests are used for clinical purposes. Billing Codes Specimen Charges Stain Charges 09370 1 5:01 PM [facility] DERMATOPATHOLOGY LABORATORY Embedded Images 5:01 PM [facility] DERMATOPATHOLOGY LABORATORY Pathology/Cytolo gy TISSUE SPECIMEN FROM SKIN / Unknown 09/25/2020 3:33 AM CONCRETE PIPE MAKING MACHINE OPERATOR 09/27/2020 12:47 PM CONCRETE PIPE MAKING MACHINE OPERATOR Viridiana Olivia DO LAB - PATHOLOGY/C YTOLOGY ORDERABLES DERMATOPATHOLOGY LABORATORY [facility] - Department of Dermatology [address], [address] [phone] documented in this encounter Visit Diagnoses Not on filedocumented in this encounter
--- OUTSIDE RECORDS SUMMARY | 2024-09-05 11:03 | XMS_ITS | Referral Summary ---
Author Organization [facility] Address [facility] [place] [address] Care Team Providers Care Oil Well Gun Perforator Operator Name Role Phone Neva Bentley Primary Care [...] 05/06/2020 Assessment & Plan (06/03/2020 10:42 AM CABINETMAKER MAINTENANCE): Patient's MRI cervical spine is normal by report. She can continue home exercises as well as fikg-ovl-ezzdbub anti-inflammatories on an as-needed basis. Assessment & [...] year. Assessment & Plan (06/03/2020 10:42 AM CABINETMAKER MAINTENANCE): Patient has improvement of her papilledema and [...] b.i.d. Obesity 05/07/2014 Tension type headache 05/07/2014 Social History Tobacco Use Types Packs/Day Years Used Date Smoking Tobacco: Never Smokeless Tobacco: Never Tobacco Cessation:Counseling Given: Not Answered Personal Safety Answer Date Recorded Getting School Help Needed Not on file 09/04 Comments Unknown Sex and Gender Information Value Date Recorded Sex Assigned at Not on file Legal Sex Female 7:47 PM CABINETMAKER MAINTENANCE Gender Identity Not on file Sexual Orientation Not on file Last Filed Vital Signs Vital Sign Reading [...] 03/29/2024 2:51 PM CDT Plan of Treatment Not on file Insurance [facility] OPEN [facility]ESS [facility] Care Teams Oil Well Gun Perforator Operator Relationship Specialty Start Date End Date Neva Bentley PA [address] [place] [id number] PCP - General Nurse Practitioner 04/01/20
--- OUTSIDE RECORDS SUMMARY | 2024-09-05 11:03 | XMS_ITS | Clinical Summary ---
Author Organization [facility] Address [address] [place] [address] Care Team Providers Care Palliative Nurse Name Role Phone Unavailable Primary Care Provider Unavailabl e Source Comments [facility],non-owned Affiliates and Associated Physician Practices is amultiple site organization consisting of ambulatory clinics and hospital sitesin [place], [place], [place] and [place]. This disclosure is being madepursuant to the Care Everywhere program and may not contain all information available regarding this patient. Last updated 18.[facility] [employer] Social History Tobacco Use Types Packs/Day Years Used Date Smoking Tobacco: Never Assessed Sex and Gender Information Value Date Recorded Sex Assigned at Not on file Gender Identity Not on file Sexual Orientation Not on file Plan of Treatment Health Maintenance Due Date Last Done Comments PAP SMEAR 1993 HIV SCREENING 2008 HEPATITIS C SCREENING 07/07/2011 DTAP/TDAP/TD VACCINES (1 - Tdap) 2012 HEPATITIS B VACCINE (1 of 3 - 19+ 3-dose series) 2012 COVID-19 VACCINE (1 - 2023-2 5 season) 2024 INFLUENZA VACCINE (#1) 2024 DEPRESSION SCREENING 07/25/2024 ZOSTER VACCINE (1 of 2) 2043 HIB VACCINE Aged Out No longer eligi ble based on patient's age to complete this topic HPV VACCINE Aged Out No longer eligi ble based on patient's age to complete this topic MENINGOCOCCAL (Group B) VACCINE Aged Out No longer eligible based on patient's age to complete this topic MENINGOCOCCAL VACCINE Aged Out No satnam pauline eligible based on patient's age to complete this topic PNEUMOCOCCAL VACCINE Aged Out No long er eligible based on patient's age to complete this topic
--- OUTSIDE RECORDS SUMMARY | 2024-09-05 11:03 | XMS_ITS | Clinical Summary ---
Author Organization [facility] Care Team Providers Care Child Protective Investigator Name Role Phone Unavailable Primary Care Provider Unavailabl e Social History Tobacco Use Types Packs/Day Years Used Date Smoking Tobacco: Never Assessed Comments Unknown Sex and Gender Information Value Date Recorded Sex Assigned at Not on file Legal Sex Female 10:12 AM CDT Gender Identity Not on file Sexual Orientation Not on file Plan of Treatment Health Maintenance Due Date Last Done Comments Hepatitis C Virus (HCV) Screening 1993 Hepatitis B Immunization (1 of 3 - 19+ 3-dose series) 2012 Pap Smear 2014 Cervical Cancer Screening (CCS) 2023 HPV/Cotest 2023 Influenza Immunization (#1) 2024 05/22/2020 SARS-COV-2 Immunization ( season) 2024 11/02/2020 Respiratory Syncytial Virus (RSV) Immunization (Adult) (1 - 1-dose 75+ series) 2068 DTaP/Tdap/Td Immunization Discontinued 05/22/2020 TdaP Immunization Completed 05/22/2020 Meningococcal Immunization (ACWY) Aged Out No longer eligible based on patient's age to complete this topic Pneumococcal Immunization Combined Aged Out No longer eligible b ased on patient's age to complete this topic Rotavirus Immunization Aged Out No lo nger eligible based on patient's age to complete this topic
[2024-09-05 11:35] LABS: HIV 1/2 Ab P24 Ag Result Negative (Negative)
[2024-09-05 11:44] LABS: Rapid Plasma Reagin Non-Reactive (NonReactive)
== END 2024-09-05 10:05 | disposition home or self-care (01) ==
LOC: ANHLAB 10:06
PROVIDERS: PCP Registered Nurse; Visit Provider Obstetrics & Gynecology Gynecology
DX: Z34.93 Encounter for supervision of normal pregnancy, unspecified, third trimester (principal); Z3A.00 Weeks of gestation of pregnancy not specified
CPT/HCPCS: 36415; 85027; 86592; 86703; 86850; 86900; 86901; G0432

== ENCOUNTER 2024-09-06 05:40 | Inpatient (IN) | payer OTHER, SELFPAY ==
[2024-09-06] VITALS (52 sets, daily range): BP systolic 98–137; BP diastolic 52–78; PULSE 62–94; RESP 12–24; TEMP 36.4–36.8; O2SAT 96–99
--- OUTSIDE RECORDS SUMMARY | 2024-09-06 01:04 | XMS_ITS | Patient Health Summary ---
Author Organization [facility] Address [address] [place] [address] Care Team Providers Care Senior Care Assistant Name Role Phone Unavailable Primary Care Provider Unavailabl e Note from [facility],non-owned Affiliates and Associated Physician Practices is amultiple site organization consisting of ambulatory clinics and hospital sitesin [place], [place], [place] and [place]. This disclosure is being madepursuant to the Care Everywhere program and may not contain all information available regarding this patient. Last updated 18.[facility] Social History Tobacco Use Types Packs/Day Years Used Date Smoking Tobacco: Never Assessed Sex and Gender Information Value Date Recorded Sex Assigned at Not on file Gender Identity Not on file Sexual Orientation Not on file Procedures * DERMATOPATHOLOGY(Performed 09/25/2020) * DERMATOPATHOLOGY(Performed 11/28/2018) Results * DERMATOPATHOLOGY (09/25/2020 3:33 AM FIRE ENGINEER) Only the most recent of2 resultswithin the time period is included. Case Report Dermatopathology Report Case: [id number] Authorizing Provider: Viridiana Olivia DO Collected: 09/25/2020 03:33 AM Ordering Location: [facility] Lab Received: 09/27/2020 12:47 PM Pathologist: Robin Hadley MD Specimen: Skin, superior vulva 5:01 PM FIRE ENGINEER DERMATOPATHOLOGY LABORATORY Final Diagnosis Specimen A. SKIN, superior vulva: ACROCHORDONS (SOFT FIBROMAS, SKIN TAGS) (L91.8) 5:01 PM [facility] DERMATOPATHOLOGY LABORATORY Clinical History ACR vs CONDY. 5:01 PM [facility] DERMATOPATHOLOGY LABORATORY Gross Description Specimen A: Received is one formalin filled container labeled with the patient's name and designated superior vulva. The specimen consists of 2 pieces of shave measuring [id number] and 2l2i4fw, bisected Jar 0. 1 5:01 PM [facility] DERMATOPATHOLOGY LABORATORY Microscopic Description Specimen A. SKIN, superior vulva: Sections show multiple polypoid pieces of skin each with a gently folded epidermis surrounding a connective tissue core in which fat and collagen are intermingled. 1 5:01 PM [facility] DERMATOPATHOLOGY LABORATORY Disclaimer An external and internal positive and negative controls are appropriate for the histochemical, immunohistochemical and immunofluorescence stain(s) in this case (if any), except where stated explicitly. The performance characteristics of the stain(s) cited in this report were developed and its performance characteristic determined by the Dermatopathology Laboratory at [facility], directed by Dr. Marixa Hadley. These tests need not be, and therefore are not, approved by the [place] Food and Drug Administration. The tests are used for clinical purposes. Billing Codes Specimen Charges Stain Charges 98307 1 1 5:01 PM [facility] DERMATOPATHOLOGY LABORATORY Embedded Images 1 5:01 PM [facility] DERMATOPATHOLOGY LABORATORY Pathology/Cytolo gy TISSUE SPECIMEN FROM SKIN / Unknown 09/25/2020 3:33 AM FIRE ENGINEER 09/27/2020 12:47 PM FIRE ENGINEER Viridiana Olivia DO LAB - PATHOLOGY/C YTOLOGY ORDERABLES DERMATOPATHOLOGY LABORATORY [facility] - Department of Dermatology [address], [address] [phone]
--- OUTSIDE RECORDS SUMMARY | 2024-09-06 01:04 | XMS_ITS | Encounter Summary ---
Author Organization [facility] Address [address] [place] [id number] Care Team Providers Care Replenishment Associate Name Role Phone Neva Bentley Primary Care Provider [phone] Angie Ames MD Unavailable [phone] Encounter Details Date Type Department Care Team (Late st Contact Info) Description 07/29/2023 nPicker Message [employer] [facility] Family & Internal Medicine [address] [phone] [facility] Provider Re: Inhaler Social History Tobacco Use Types Packs/Day Years Used Date Smoking Tobacco: Never Smokeless Tobacco: Never Alcohol Use Standard Drinks/Week Comments Yes 0 (1 standard drink = 0.6 oz pur e alcohol) occasional AUDIT-C Answer Date Recorded Frequency of Alcohol Consumption 2-4 times a tue02/20/2019 Average Number of Drinks 3 or 4 019 Frequency of Binge Drinking Not on file 01/24 PHQ-2 Answer Date Recorded Patient Health Questionnaire-2 Score 0 08/20/2022 Comments No Sex and Gender Information Value Date Recorded Sex Assigned at Not on file Legal Sex Female 8:22 PM CDT Gender Identity Not on file Sexual Orientation Not on file documented as of this encounter Plan of Treatment Not on file documented as of this encounter Visit Diagnoses Not on filedocumented in this encounter Additional Health Concerns Infection Onset Date Last Indicated Resolved Time COVID-19 Rule Out 09/07/2023 09/07/2023 09/07/2023 12:16 PM ENVIRONMENTAL HEALTH PHYSICIAN COVID-19 Confirmed 09/07/2023 09/07/2023 12:33 AM ENVIRONMENTAL HEALTH PHYSICIAN Assessment Noted Time PHQ-9 Depression Total Score: 6 08/20/19 23 10:06 AM ENVIRONMENTAL HEALTH PHYSICIAN documented as of this encounter Care Teams Replenishment Associate Relationship Specialty Start Date End Date Neva Bentley APNP [address] [place] [phone] PCP - General NURSE PRACTITIONER 02/20/19 Angie Ames MD [address] [address] [facility] 06/04/24 documented as of this encounter
--- OUTSIDE RECORDS SUMMARY | 2024-09-06 01:04 | XMS_ITS | Clinical Summary ---
Author Organization [facility] Care Team Providers Care Inspector Paper Products Name Role Phone Unavailable Primary Care Provider [...]
--- OUTSIDE RECORDS SUMMARY | 2024-09-06 01:04 | XMS_ITS | Encounter Summary ---
Author Organization [facility] Address [address] [place] [id number] Care Team Providers Care Java Groovy Developer Name Role Phone Neva Bentley Primary Care Provider [phone] Angie Ames MD Unavailable [phone] Encounter Details Date Type Department Care Team (Late st Contact Info) Description 06/23/2021 eCareDiaryt Message Enc [facility] Family & Internal Medicine [id number] [place] [address] Neva Bentley APNP [address] [place] [address] Follow Up/Update Social History Tobacco Use Types Packs/Day Years [...] on file 01/24 PHQ-2 Answer Date Recorded PHQ-2 Score - If the patient scores above 3, please move on to questions 3-9 1 03/19/2021 Comments No Sex and Gender Information Value Date Recorded Sex Assigned at Not on file Legal Sex Female 8:22 PM CDT Gender Identity Not on file Sexual Orientation Not on file documented as of this encounter Progress Notes * Laura Eddy MA - 06/25/2021 10:05 AM CST Pt informed she can contact [facility] for appt as test ordered was sent there UNTS RECEIVABLE COORDINATOR documented in this encounter Plan of Treatment Not on file documented as of this encounter Visit Diagnoses Not on filedocumented in this encounter Additional Health Concerns Infection Onset Date Last Indicated Resolved Time COVID-19 Rule Out 07/16/2021 07/17/2021 07/23/2021 12:32 AM ACCOUNTS RECEIVABLE COORDINATOR COVID-19 Confirmed 07/17/2021 07/17/2021 12:33 AM ACCOUNTS RECEIVABLE COORDINATOR COVID-19 Rule Out 10/01/2022 10/01/2022 10/01/2022 2:33 PM ACCOUNTS RECEIVABLE COORDINATOR COVID-19 Rule Out 10/01/2022 10/01/2022 10/02/2022 7:32 PM ACCOUNTS RECEIVABLE COORDINATOR COVID-19 Rule Out 09/07/2023 09/07/2023 09/07/2023 12:16 PM ACCOUNTS RECEIVABLE COORDINATOR COVID-19 Confirmed 09/07/2023 09/07/2023 12:33 AM ACCOUNTS RECEIVABLE COORDINATOR Assessment Noted Time PHQ-9 Depression Total Score: 8 03/19/20 21 11:49 AM CDT documented as of this encounter Care Teams Java Groovy Developer Relationship Specialty Start Date End Date Neva Bentley APNP [address] [place] [id number] PCP - General NURSE PRACTITIONER 02/20/19 Angie Ames MD [address] [address] OBGYN 06/04/24 documented as of this encounter
--- OUTSIDE RECORDS SUMMARY | 2024-09-06 01:04 | XMS_ITS | Encounter Summary ---
Author Organization [facility] Address [address] [place] [address] Care Team Providers Care Paver Installer Name Role Phone Unavailable Primary Care Provider Unavailabl e Encounter Details Date Type Department Care Team (Late st Contact Info) Description 11/29/2018 Lab Requisition [facility] Care DermPath Lab [address] [facility] [place] [phone] Viridiana Olivia DO [address] [facility] [address] [place] [address] Social History Tobacco Use Types Packs/Day Years [...] AM CDT) Case Report Dermatopathology Report Case: [id number] Authorizing Provider: Viridiana Olivia DO Collected: 11/28/2018 [...] The specimen consists of a shave measuring [id number]. Jar 0. 2:27 PM T DERMATOPATHOLOGY LABORATORY [...] characteristic determined by the Dermatopathology Laboratory at [facility], directed by Dr. Marixa Hadley. These tests need not be, and therefore are not, approved by the [place] Food and Drug Administration. The tests are used for clinical purposes. Billing Codes Specimen Charges Stain Charges 00215 1 2:27 PM CDT DERMATOPATHOLOGY LABORATORY Embedded Images 2:27 PM CDT DERMATOPATHOLOGY LABORATORY Pathology/Cytolog y TISSUE SPECIMEN FROM SKIN / Unknown 11/28/2018 11/29/2018 7:06 AM CDT Viridiana Olivia DO LAB - PATHOLOGY/C YTOLOGY ORDERABLES DERMATOPATHOLOGY LABORATORY [facility] - Department of Dermatology [address] [place] [address] 5th Floor Lab [address] [phone] documented in this encounter Visit Diagnoses Not on filedocumented in this encounter
--- OUTSIDE RECORDS SUMMARY | 2024-09-06 01:04 | XMS_ITS | Clinical Summary ---
Author Organization [facility] Address [address] [place] [address] Care Team Providers Care Bricklayer'S Assistant Name Role Phone Unavailable Primary Care Provider Unavailabl e Source Comments [facility],non-owned Affiliates and Associated Physician Practices is amultiple site organization consisting of ambulatory clinics and hospital sitesin [place], [place], [place] and [place]. This disclosure is being madepursuant to the Care Everywhere program and may not contain all information available regarding this patient. Last updated 18.[facility] [employer] Social History Tobacco Use Types Packs/Day Years [...]
--- OUTSIDE RECORDS SUMMARY | 2024-09-06 01:04 | XMS_ITS | Clinical Summary ---
Author Organization [facility] Address [address] [place] [phone] Phone Care Team Providers Care Literacy Coach Name Role Phone Unavailable Primary Care Provider Unavailabdirizak e Encounters Date Type Department Care Team Description 08/21/2024 External Device Data STL ABSTRACTION Provider, Abstract 08/15/2024 External Device Data [facility] ABSTRACTION Provider, Abstract 08/15/2024 External Device Data [facility] ABSTRACTION Provider, Abstract 08/09/2024 7:22 AM SAS PROGRAMMER ANALYST - 08/09/2024 11:59 PM SAS PROGRAMMER ANALYST Hospital Encounter [facility] Maribell Olea [address] [place] [phone] Mustapha Coombs MD Discharge Disposition: Home or Self Care 08/08/2024 External Device Data [facility] ABSTRACTION Provider, Abstract 07/12/2024 9:41 AM SAS PROGRAMMER ANALYST - 07/12/2024 11:59 PM SAS PROGRAMMER ANALYST Hospital Encounter [facility] Maribell Olea [address] [place] [phone] Mustapha Coombs MD Discharge Disposition: Home or Self Care 06/14/2024 1:30 PM SAS PROGRAMMER ANALYST - 06/14/2024 11:59 PM SAS PROGRAMMER ANALYST Hospital Encounter [facility] Maribell Olea [address] [place] [phone] Lilly Rosales MD Discharge Disposition: Home or [...] UP PER FETUS Routine 08/09/2024 7:46 AM SAS PROGRAMMER ANALYST Obesity affecting in third trimester, unspecified obesity type US OB FOLLOW UP PER FETUS Routine 07/12/2024 10:05 AM SAS PROGRAMMER ANALYST Obesity affecting in third trimester, unspecified obesity type US OB FOLLOW UP PER FETUS Routine 06/14/2024 2:18 PM SAS PROGRAMMER ANALYST Encounter for screening for malformation from Last 3 Months Results * US OB FOLLOW UP PER FETUS (08/09/2024 7:46 AM SAS PROGRAMMER ANALYST) Only the most recent of3 resultswithin the time period is included. Anatomical Region Laterality Modality Pelvis Ultrasound 08/09/2024 7:25 AM SAS PROGRAMMER ANALYST Narrative 08/09/2024 8:15 AM SAS PROGRAMMER ANALYST STL FOLLOW UP ----- Pat. Name: TRISH GOMEZ Study Date: 08/09/2024 7:25am Pat. NO: [id number] Referring MD: AMY LINDO MD Site: [employer] Brake Specialist: Rosita Feng RDMS : 1995 Age: 29 ----- INDICATION ----- Screening Follow-Up Maternal Obesity (BMI>40) Complicating CODING ----- Diagnoses Z3A.36: Weeks of gestation O99.213: Obesity complicating Z36.2: Encounter for other screening follow-up Procedures 92335: Ultrasound, uterus, real time with image documentation, [...] 6 lb 15 oz EFW by Hadlock ([id number]) Head / Face / Neck Biometry: Comptometer Operator 3.1 mm Extremities / Bony Struc Biometry: [...] and date of were verified by the video arcade manager prior to the exam IMPRESSION ----- [...] Pat. Name:Mina GOMEZ Date:08/09/2024 7:25am Pat. NO: [id number] MD:AMY LINDO [facility] Feng RDMS :1995Age:29 ----- INDICATION ----- Screening Follow-Up Maternal Obesity (BMI>40) Complicating CODING ----- Diagnoses Z3A.36: Weeks of gestation O99.213: Obesity complicating Z36.2: Encounter for other screeningfollow-up Procedures 42754: Ultrasound, uterus, real time withimage documentation, follow up, transabdominal approach per fetus HISTORY ----- OB History 2. Para 1 MATERNAL ASSESSMENT ----- Physical Exam Weight 154 kg. BMI 53.25 kg/m METHOD ----- Transabdominal ultrasound examination ----- Thurman . Number of fetuses: 1 DATING ----- GA by prior [id number] w + 1 d KHADAR by prior assessment:09/05/2024 Ultrasound examination on:08/09/2024 GA by U/S based upon:AC, BPD, EFW, Femur, HC GA by U/S37 w + 2 d KHADAR by U/S:08/28/2024 Method of dating:Restore dating from [...] 6 lb 15 oz EFW by Hadlock ([id number]) Head / Face / Neck Biometry: Comptometer Operator 3.1mm Extremities / Bony Struc Biometry: FL [...] and date of were verified by the video arcade manager prior tothe exam IMPRESSION ----- -Single [...] - Final from Last 3 Months Insurance [facility] CHOICE [id number]
--- OUTSIDE RECORDS SUMMARY | 2024-09-06 01:04 | XMS_ITS | Clinical Summary ---
Author Organization [facility] Address Formerly [facility] [place] [address] Care Team Providers Care Gas Appliance Servicer Name Role Phone Neva Bentley Primary Care Provider [phone] Angie Ames MD Unavailable [phone] Allergies No known active allergies Medications Multiple Vitamins-Mineral s (MULTI COMPLETE) Cap Take by mouth daily. Active loratadine (CLARITIN) 10 MG tablet Take 1 tablet (10 mg total) by mouth daily. Active acetaZOLAMIDE (DIAMOX) 125 MG Tab Take 1 tablet (125 mg total) by mouth daily. 09/28/2023 Active vitamin w/ iron-folic acid ( PLUS) 29-1 MG Tab tablet Take 1 tablet by mouth daily. Active Pyridoxine HCl (B-6) 100 MG Tab Act juan Magnesium Oxide 420 MG Tab Active Active Problems Problem Noted Date Diagnosed Date Anemia 05/28/2020 Neck pain 05/06/2020 Overview (07/08/2020): Last Assessment & Plan: Patient's MRI cervical spine is normal by report. She can continue home exercises as well as [id number] anti-inflammatories on an as-needed basis. Pseudotumor cerebri 05/06/2020 Overview (07/03/2021): Last Assessment & Plan: Patient has improvement [...] follow-up in neurology clinic in a year. Papilledema of both eyes 04/02/2020 Overview (07/08/2020): Last Assessment & Plan: Patient remains with mild papilledema in both [...] her back upon completion of her neuroimaging. Idiopathic intracranial hypertension 07/25/2019 Obesity 05/07/2014 Tension type headache 05/07/2014 Allergic rhinitis Encounters Date Type Department Care Team Description 08/01/2024 Telephone [facility] [address] [address] Kodi Hou MD Results 07/03/2024 7:59 AM FUEL VERIFICATION TECHNICIAN - 07/03/2024 11:59 PM FUEL VERIFICATION TECHNICIAN Hospital Encounter [facility] [place] [address] Kodi Hou MD Discharge Disposition: Home or Self Care (Routine Discharge) 07/03/2024 Travel 06/26/2024 Abstract [facility] [address] [address] Kavya Guevara, DIANNA 06/22/2024 Scan [facility] Scanned, [facility] 06/14/2024 9:30 AM FUEL VERIFICATION TECHNICIAN Telephone [facility] [address] [place] [address] Kodi Hou MD Holter Monitor 06/06/2024 2:00 PM FUEL VERIFICATION TECHNICIAN Office Visit [facility]Surinder [facility] [address] [place] [address] Kodi Hou MD Consult; Abnormal EKG (New consult) 06/06/2024 Orders Only [facility] [address] [place] [address] Viridiana Lemos, DISASTER RECOVERY CONSULTANT 06/06/2024 Travel from Last 3 Months Immunizations Name Administration Dates Next Due Fluzone 6 Months+ Quad (0.5 mL Prefilled Syringe) 04/27/2023,07/03/2021,05/22/2020 PFIZER COVID-19 (ORIGINAL FO RMULATION, PURPLE CAP) mRNA, LNP-S, PF, 30 MCG/0.3 ML DOSE 12/04/2020,11/02/2020 Tdap (Adacel) 05/22/2020 Family History Medical History Relation Comments Cancer Father lung Hypertension Father Cancer Maternal Grandfather lung and sk in Diabetes Maternal Grandfather Cancer Maternal Grandmother breast Diabetes Maternal Grandmother Heart Disease Paternal Grandfather Cancer Paternal Grandmother Heart Disease Paternal Grandmother Relation Status Comments Father Alive Maternal Grandfather Maternal Grandmother Mother Alive Paternal Grandfather Paternal Grandmother Social History Tobacco Use Types Packs/Day Years Used Date Smoking Tobacco: Never Smokeless Tobacco: Never Tobacco Cessation:Counseling Given: Not Answered Alcohol Use Standard Drinks/Week Comments Yes 0 [...] on file Sexual Orientation Not on file 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 Not on file Not on file Last Filed Vital Signs Vital Sign Reading Time Taken Comments Blood Pressure 122/62 06/06/2024 2:06 PM FUEL VERIFICATION TECHNICIAN Pulse 84 06/06/2024 2:06 PM FUEL VERIFICATION TECHNICIAN Temperature 36.9 C (98.4 F) 04/27/2023 9:07 AM CDT Respiratory Rate 16 04/27/2023 9:07 AM CDT Oxygen Saturation 97% 04/27/2023 9:07 AM CDT Inhaled Oxygen Concentration - - Weight 165.6 kg (365 lb) 06/06/2024 2:06 PM FUEL VERIFICATION TECHNICIAN Height 170.2 cm (5' 7 ) 06/06/2024 2:06 PM FUEL VERIFICATION TECHNICIAN Body Mass Index 57.17 06/06/2024 2:06 PM FUEL VERIFICATION TECHNICIAN Plan of Treatment Health Maintenance Due Date Last Done Comments Cervical Cancer Screening Pa p Smear (Age 30 to 64) Every 3 Years 1993 Hepatitis B Vaccines (1 of 3 - 19+ 3-dose series) 2012 Cervical Cancer Screening Pa p with HPV Testing (Age 30 to 64) Every 5 Years 2023 Cervical Cancer Screening wi HPV 2023 COVID-19 Vaccine (3 - 2023-2 5 season) 2024 12/04/2020, 11/02/2020 Influenza Adult (#1) 2024 04/27/2023, 07/03/2021, 05/22/2020 Annual Physical 04/27/2024 04/27/2023, 07/03/2021, 05/20/2020 PHQ-2 (Physician [place]) 07/25/2024 DTaP, Tdap and Td Vaccines ( 2 - Td or Tdap) 05/22/2030 05/22/2020 Hepatitis C Completed 05/22/2020 HPV Vaccines Aged Out No longer eligi ble based on patient's age to complete this topic Meningococcal B Vaccine Aged Out No l onger eligible based on patient's age to complete this topic Meningococcal Vaccine Aged Out No satnam pauline eligible based on patient's age to complete this topic Pneumococcal Vaccine: Pediatrics (0 to 5 Years) and At-Risk Patients (6 to 64 Years) Aged Out No longer eligible b ased on patient's age to complete this topic RSV Immunizations Under 20 Months Aged Out No longer eligible b ased on patient's age to complete this topic Procedures Procedure Name Priority Date/Time Associated Diagnosis Comments EVENT RECORDER (ECG) UP TO 30 DAYS COMPLETE Routine 07/24/2024 10:36 AM FUEL VERIFICATION TECHNICIAN Palpitation USE ECHOCARDIOGRAM Routine 07/03/2024 8: 52 AM FUEL VERIFICATION TECHNICIAN NAZARIO (dyspnea on exertion) HEPATITIS C ANTIBODY W/RFX TO HCV RNA Routine 05/22/2020 12:00 PM CDT from Last 3 Months or Most Recently Relevant to Health Maintenance Results * CLINIC - OUTPATIENT EVENT RECORDER (ECG) UP TO 30 DAYS COMPLETE (Holter) (07/24/2024 10:36 AM FUEL VERIFICATION TECHNICIAN) Narrative [facility] - 07/24/2024 10:36 AM FUEL VERIFICATION TECHNICIAN [image] [place], [place] [address] MOBILE CARDIAC TELEMETRY REPORT Patient Name: Trish Gomez : 1995 Performed At: [place], [place] Interpreting Automatic Serging Machine Operator: Dr. Kodi Hou PCP: HALLEY Luna INDICATION: Palpitations Duration: 14 days Diagnostic data: 41% Baseline Rhythm * The baseline rhythm was Sinus Tachycardia with heart rates ranged between 74 and 149 beats per minute, with average rate of 96 beats per minute. A-V Conduction * No Second Degree AV Block Type II. * No Third Degree AV Block. * No Pauses. Supraventricular Arrhythmia * There were 895 Supraventricular Ectopic beats with a burden of <1%. * No Supraventricular Tachycardia. Ventricular Arrhythmia * There were 83 Ventricular Ectopic beats with a burden of <1%. * No Ventricular Tachycardia. Atrial Fibrillation * No Atrial Fibrillation. Patient Triggered Events * 9 patient triggered events, 9 had symptoms specified. Patient triggered events with symptoms of palpitations, coughing corresponded to sinus tachycardia. CONCLUSIONS Heart rate ranged from 74 to 149 with an average HR of 96 bpm. 37% tachycardic and 0% bradycardic. Patient triggered events corresponded to sinus tachycardia. No sustained arrhythmias or prolonged pauses. us Kodi Hou MD CV VASCULAR ORDERABLES Final R esult [facility] * USE ECHOCARDIOGRAM (07/03/2024 8:52 AM FUEL VERIFICATION TECHNICIAN) Anatomical Region Laterality Modality Cardiac Echocardiogram 07/03/2024 9:20 AM FUEL VERIFICATION TECHNICIAN Narrative 07/04/2024 12:54 PM FUEL VERIFICATION TECHNICIAN Echocardiography Report Pat.Name: TRISH GOMEZ Pat.ID: [id number] St.Date: 07/03/2024 Refer.MD: [id number] ALEXA Segura EWDPROV EWDPROV Exam Time: 9:20:00 AM Study Type:ECHO WITH CARDIAC DOPPLER COMP Height: 67 in Weight: 365 lb BSA: 2.61 m2 Age: 10 1995,28Y Sex: F BP: 114/52 HR: 78 bpm Sonogrphr: Guerita Vázquez RCS Pat. Stat.:Outpatient Reason for Study:Dyspnea on exertion Procedures: 2D, M-mode, Doppler, Color Flow, The study quality is technically fair. Race: W ++++++++++++++++++++++++++++++++++++ SUMMARY: ++++++++++++++++++++++++++++++++++++ The left ventricular size is normal. Estimated left ventricular ejection fraction is 60-65%. Left ventricular diastolic function is normal. Wall motion appears normal in all segments. The right ventricular size is normal. Right ventricular systolic function is normal. No significant valvular abnormalities. ++++++++++++++++++++++++++++++++++++ FINDINGS: ++++++++++++++++++++++++++++++++++++ LV: The left ventricular size is normal. Estimated left ventricular ejection fraction is 60-65%. Mild concentric left ventricular hypertrophy. Left ventricular diastolic function is normal. WM: Wall motion appears normal in all segments. RV: The right ventricular size is normal. Right ventricular systolic function is normal. IVS: No evidence of ventricular septal defect. LA: The left atrial volume is normal ( less than 34 ml/M2). RA: Right atrial size is normal. IAS: Atrial septum appears intact. MURTAZA: No evidence of pericardial effusion. AO: Normal aortic root. PA: Estimated right atrial pressure of 3 mmHg. SVn: Inferior vena cava shows >50% collapse with respiration consistent with normal right atrial pressure. AV: The aortic valve is trileaflet. No evidence of aortic valve stenosis. No evidence of aortic regurgitation. MV: Mild mitral regurgitation. No evidence of mitral valve stenosis. PV: No evidence of pulmonic valve stenosis. No evidence of pulmonic regurgitation. TV: A trace of tricuspid regurgitation. Right ventricular systolic pressure is 30-35 mmHg. No evidence of tricuspid valve stenosis. ++++++++++++++++++++++++++++++++++++ MEASUREMENTS: ++++++++++++++++++++++++++++++++++++ DOPPLER LVOT LVOTpkPG 6 mmHg LVOTmnPG 4 mmHg LVOTpkVel 121 cm/s (70-110)+* LVOT SV 63 ml LVOT TVI 20.1 cm LVOT CO 100 ml/s Pulmonary Veins PVnpkVeld 46.6 cm/s PVnVs/Vd 1.1 PVnpkVels 51.5 cm/s AV Forward Flow AV TVI 32.6 cm AV pkPG 14 mmHg AV pkVel 189 cm/s (100-170)+* Area (TVI) 1.94 cm2 (3-5)* AV mnPG 8 mmHg Area (Spike) 2.01 cm2 (3-5)* MV Forward Flow MV DeTm 170 msec MV pkE 106 cm/s (60-130)+ MV E/A 1.4 MV pkA 77.5 cm/s PV Forward Flow PV pkVel 133 cm/s (60-90)+* PV AC 144 msec PV pkPG 7 mmHg TV Regurg Flow TV pkPG 34 mmHg TV pkVel 290 cm/s (30-70)* TV Forward Flow TV pkE 68.9 cm/s Lat E' Lat e 14.9 cm/s Lat E/E' Lat E/e 7.1 Med E' Med e 13.7 cm/s Med E/E' Med E/e 7.7 Aortic Valve Aortic Valve Ar 0.74 Aortic Valve Ve 0.64 PV Antegrade Flow Acceleration Sl 791 cm/s2 Right Atrium Riley's Disk 20 Right Ventricle Right Ventricle 16.5 cm/s 2D Left Ventricle LVIDd 3.99 cm (3.6-5.2) LV ESV 68.7 ml LVIDs 2.98 cm (2.3-3.9) LV ESV 40.8 ml LngAxd 9.99 cm LVESV BP 56.9 ml LngAxd 8.72 cm LV EF 60.3 % LV EDV 173 ml LV EF 62.6 % LV EDV 109 ml LV EF BP 61.3 % LVEDV BP 147 ml LV SV 104 ml LngAxs 7.99 cm LV SV 68.2 ml LngAxs 6.78 cm LV SV BP 90.1 ml LVPW LVPWd 1.31 cm Right Ventricle RVIDd 3.13 cm (2.6-4.3) Right Ventricle 32.8 mm Right Ventricle 37.3 mm Right and Left 0.784 Major [place] 81.7 mm Ventricular Septum IVSd 1.32 cm Left Atrium LA VOLBP 64.9 ml Aorta Ao Rtd 3 cm Ao Asc 2.9 cm (2.1-3.4) LVOT LVOT 2 cm LVOTArea 3.14 cm2 Ratios IVS Inferior vena cava IVC Diam 12.3 mm LA Biplane LAVol I BP 24.9 ml/m2 RA Single Plane Right Atrium MO 9.6 mm Right Atrium Sy 21.2 ml Right Atrium Sy 46.6 mm Right Atrium Sy 8.1 ml/m2 Right Atrium Sy 11.2 cm2 MMODE TA Tricuspid Annul 26.1 mm <Electronic Signature> 07/04/2024 12:54 PM Kodi Hou M.D. Procedure Note Kodi Hou MD - 07/04/2024 Echocardiography Report Pat.Name: TRISH GOMEZ Pat.ID: [id number] .Date: 07/03/2024 : [id number] LAEXA JAMISON Imelda EWDPROV EWDPROV Exam Time: 9:20:00 AM Study Type:ECHO WITH CARDIAC DOPPLER COMP Height: 67 in Weight: 365 lb BSA: 2.61 m2 Age: 12 1995,28Y Sex: F BP: 114/52 HR: 78 bpm Sonogrphr: Guerita Vázquez RCS Pat. Stat.:Outpatient Reason for Study:Dyspnea on exertion Procedures: 2D, M-mode, Doppler, Color Flow, The study quality is technically fair. Race: W ++++++++++++++++++++++++++++++++++++ SUMMARY: ++++++++++++++++++++++++++++++++++++ The left ventricular size is normal. Estimated left ventricular ejection fraction is 60-65%. Left ventricular diastolic function is normal. Wall motion appears normal in all segments. The right ventricular size is normal. Right ventricular systolic function is normal. No significant valvular abnormalities. ++++++++++++++++++++++++++++++++++++ FINDINGS: ++++++++++++++++++++++++++++++++++++ LV: The left ventricular size is normal. Estimated left ventricular ejection fraction is 60-65%. Mild concentric left ventricular hypertrophy. Left ventricular diastolic function is normal. WM: Wall motion appears normal in all segments. RV: The right ventricular size is normal. Right ventricular systolic function is normal. IVS: No evidence of ventricular septal defect. LA: The left atrial volume is normal ( less than 34 ml/M2). RA: Right atrial size is normal. IAS: Atrial septum appears intact. MURTAZA: No evidence of pericardial effusion. AO: Normal aortic root. PA: Estimated right atrial pressure of 3 mmHg. SVn: Inferior vena cava shows >50% collapse with respiration consistent with normal right atrial pressure. AV: The aortic valve is trileaflet. No evidence of aortic valve stenosis. No evidence of aortic regurgitation. MV: Mild mitral regurgitation. No evidence of mitral valve stenosis. PV: No evidence of pulmonic valve stenosis. No evidence of pulmonic regurgitation. TV: A trace of tricuspid regurgitation. Right ventricular systolic pressure is 30-35 mmHg. No evidence of tricuspid valve stenosis. ++++++++++++++++++++++++++++++++++++ MEASUREMENTS: ++++++++++++++++++++++++++++++++++++ DOPPLER LVOT LVOTpkPG 6 mmHg LVOTmnPG 4 mmHg LVOTpkVel 121 cm/s (70-110)+* LVOT SV 63 ml LVOT TVI 20.1 cm LVOT CO 100 ml/s Pulmonary Veins PVnpkVeld 46.6 cm/s PVnVs/Vd 1.1 PVnpkVels 51.5 cm/s AV Forward Flow AV TVI 32.6 cm AV pkPG 14 mmHg AV pkVel 189 cm/s (100-170)+* Area (TVI) 1.94 cm2 (3-5)* AV mnPG 8 mmHg Area (Spike) 2.01 cm2 (3-5)* MV Forward Flow MV DeTm 170 msec MV pkE 106 cm/s (60-130)+ MV E/A 1.4 MV pkA 77.5 cm/s PV Forward Flow PV pkVel 133 cm/s (60-90)+* PV AC 144 msec PV pkPG 7 mmHg TV Regurg Flow TV pkPG 34 mmHg TV pkVel 290 cm/s (30-70)* TV Forward Flow TV pkE 68.9 cm/s Lat E' Lat e 14.9 cm/s Lat E/E' Lat E/e 7.1 Med E' Med e 13.7 cm/s Med E/E' Med E/e 7.7 Aortic Valve Aortic Valve Ar 0.74 Aortic Valve Ve 0.64 PV Antegrade Flow Acceleration Sl 791 cm/s2 Right Atrium Riley's Disk 20 Right Ventricle Right Ventricle 16.5 cm/s 2D Left Ventricle LVIDd 3.99 cm (3.6-5.2) LV ESV 68.7 ml LVIDs 2.98 cm (2.3-3.9) LV ESV 40.8 ml LngAxd 9.99 cm LVESV BP 56.9 ml LngAxd 8.72 cm LV EF 60.3 % LV EDV 173 ml LV EF 62.6 % LV EDV 109 ml LV EF BP 61.3 % LVEDV BP 147 ml LV SV 104 ml LngAxs 7.99 cm LV SV 68.2 ml LngAxs 6.78 cm LV SV BP 90.1 ml LVPW LVPWd 1.31 cm Right Ventricle RVIDd 3.13 cm (2.6-4.3) Right Ventricle 32.8 mm Right Ventricle 37.3 mm Right and Left 0.784 Major [place] 81.7 mm Ventricular Septum IVSd 1.32 cm Left Atrium LA VOLBP 64.9 ml Aorta Ao Rtd 3 cm Ao Asc 2.9 cm (2.1-3.4) LVOT LVOT 2 cm LVOTArea 3.14 cm2 Ratios IVS Inferior vena cava IVC Diam 12.3 mm LA Biplane LAVol I BP 24.9 ml/m2 RA Single Plane Right Atrium MO 9.6 mm Right Atrium Sy 21.2 ml Right Atrium Sy 46.6 mm Right Atrium Sy 8.1 ml/m2 Right Atrium Sy 11.2 cm2 MMODE TA Tricuspid Annul 26.1 mm <Electronic Signature> 07/04/2024 12:54 PM Kodi Hou M.D. Kodi Hou MD ECHO Final Result * HEPATITIS C ANTIBODY W/RFX TO HCV RNA (05/22/2020 12:00 PM CDT) HEPATITIS C AB NON-REACTI VE NON-REACT JUAN [facility] SIGNAL TO CUTOFF 0.06 <[address] [facility] Comment: HCV antibody was non-reactive. There is no laboratory evidence of HCV infection. In most cases, no further action is required. However, if recent HCV exposure is suspected, a test for HCV RNA (test code 96538) is suggested. For additional information please refer to http://education.[employer]/faq/DVM29s6 (This link is being provided for informational/ educational purposes only.) 05/22/2020 12:0 0 PM CDT 05/22/2020 12:03 PM CDT [facility] Final Resul t [facility] [id number] [phone] from Last 3 Months or Most Recently Relevant to Health Maintenance Insurance Care Teams Gas Appliance Servicer Relationship Specialty Start Date End Date Neva Bentley APNP [address] [place] [id number] PCP - General NURSE PRACTITIONER 02/20/19 Angie Ames MD [address] [address] OBGYN 06/04/24
--- OUTSIDE RECORDS SUMMARY | 2024-09-06 01:04 | XMS_ITS | Encounter Summary ---
Author Organization [facility] Address [address] [place] [address] Care Team Providers Care Drafter Structural Name Role Phone Unavailable Primary Care Provider Unavailabl e Encounter Details Date Type Department Care Team (Late st Contact Info) Description 09/27/2020 Lab Requisition [facility] [address] [place] [id number] Viridiana Olivia DO [address] [facility] [address] [place] [address] Social History Tobacco Use Types Packs/Day Years [...] Diagnosis Comments DERMATOPATHOLOGY Routine 09/25/2020 3:33 AM MAP COMPILER documented in this encounter Results * DERMATOPATHOLOGY (09/25/2020 3:33 AM MAP COMPILER) Case Report Dermatopathology Report Case: [id number] Authorizing Provider: Viridiana Olivia DO Collected: 09/25/2020 03:33 AM Ordering Location: [facility] Received: 09/27/2020 12:47 PM Pathologist: Robin Hadley MD Specimen: Skin, superior vulva 5:01 PM MAP COMPILER DERMATOPATHOLOGY LABORATORY Final Diagnosis Specimen A. SKIN, superior vulva: ACROCHORDONS (SOFT FIBROMAS, SKIN TAGS) (L91.8) 5:01 PM MAP COMPILER DERMATOPATHOLOGY LABORATORY Clinical History ACR vs CONDY. 5:01 PM [facility] DERMATOPATHOLOGY LABORATORY Gross Description Specimen A: Received is one formalin filled container labeled with the patient's name and designated superior vulva. The specimen consists of 2 pieces of shave measuring 6x5x1qk and 5g4l5qx, bisected Jar 0. 5:01 PM [facility] DERMATOPATHOLOGY LABORATORY Microscopic Description Specimen A. SKIN, superior vulva: Sections show multiple polypoid pieces of skin each with a gently folded epidermis surrounding a connective tissue core in which fat and collagen are intermingled. 5:01 PM [facility] DERMATOPATHOLOGY LABORATORY Disclaimer An external and internal positive and negative controls are appropriate for the histochemical, immunohistochemical and immunofluorescence stain(s) in this case (if any), except where stated explicitly. The performance characteristics of the stain(s) cited in this report were developed and its performance characteristic determined by the Dermatopathology Laboratory at [facility], directed by Dr. Marixa Hadley. These tests need not be, and therefore are not, approved by the [place] Food and Drug Administration. The tests are used for clinical purposes. Billing Codes Specimen Charges Stain Charges [address] 1 5:01 PM [facility] DERMATOPATHOLOGY LABORATORY Embedded Images 5:01 PM [facility] DERMATOPATHOLOGY LABORATORY Pathology/Cytolo gy TISSUE SPECIMEN FROM SKIN / Unknown 09/25/2020 3:33 AM MAP COMPILER 09/27/2020 12:47 PM MAP COMPILER Viridiana Olivia DO LAB - PATHOLOGY/C YTOLOGY ORDERABLES DERMATOPATHOLOGY LABORATORY [facility] - Department of Dermatology [address] [phone] documented in this encounter Visit Diagnoses Not on filedocumented in this encounter
--- OUTSIDE RECORDS SUMMARY | 2024-09-06 01:04 | XMS_ITS | Encounter Summary ---
Author Organization [facility] Address [address] [place] [address] Care Team Providers Care Drainman Name Role Phone Neva Bentley Primary Care Provider [phone] Angie Ames MD Unavailable [phone] Encounter Details Date Type Department Care Team (Late st Contact Info) Description 10/06/2022 [place] Message Enc [facility] Family & Internal Medicine [address] [phone] [facility] Provider Test results Social History Tobacco Use Types Packs/Day Years [...] on file Sexual Orientation Not on file COVID-19 Exposure Response Date Recorded In the last 10 days, have yo u been in contact with someone who was confirmed or suspected to have Coronavirus/COVID-19? No / Unsure 10/01/2022 1:18 PM FAC ENGINEER documented as of this encounter Plan of Treatment Not on file documented as of this encounter Visit Diagnoses Not on filedocumented in this encounter Additional Health Concerns Infection Onset Date Last Indicated Resolved Time COVID-19 Rule Out 09/07/2023 09/07/2023 09/07/2023 12:16 PM FAC ENGINEER COVID-19 Confirmed 09/07/2023 09/07/2023 12:33 AM FAC ENGINEER Assessment Noted Time PHQ-9 Depression Total Score: 6 08/20/19 23 10:06 AM FAC ENGINEER documented as of this encounter Care Teams Drainman Relationship Specialty Start Date End Date Neva Bentley APNP [address] [place] [id number] PCP - General NURSE PRACTITIONER 02/20/19 Angie Ames MD [address] [address] RHONDA 06/04/24 documented as of this encounter
--- OUTSIDE RECORDS SUMMARY | 2024-09-06 01:04 | XMS_ITS | Referral Summary ---
Author Organization [facility] Address [address] [place] [address] Care Team Providers Care Captain Fishing Vessel Name Role Phone Unavailable Primary Care Provider Unavailabl e Source Comments [facility],non-owned Affiliates and Associated Physician Practices is amultiple site organization consisting of ambulatory clinics and hospital sitesin [place], [place], [place]. This disclosure is being madepursuant to the Care Everywhere program and may not contain all information available regarding this patient. Last updated 18.[facility] Social History Tobacco Use Types Packs/Day Years Used Date Smoking Tobacco: Never Assessed Sex and Gender Information Value Date Recorded Sex Assigned at Not on file Gender Identity Not on file Sexual Orientation Not on file Plan of Treatment Not on file
--- OUTSIDE RECORDS SUMMARY | 2024-09-06 01:05 | XMS_ITS | Clinical Summary ---
Author Organization [facility] Address [facility] [place] [address] Care Team Providers Care Handbell Choir Director Name Role Phone Neva Bentley Primary Care [...] 05/06/2020 Assessment & Plan (06/03/2020 10:42 AM SECURITY SYSTEM ENGINEER): Patient's MRI cervical spine is normal by report. She can continue home exercises as well as oxim-soh-tqrpqoj anti-inflammatories on an as-needed basis. Assessment & [...] year. Assessment & Plan (06/03/2020 10:42 AM SECURITY SYSTEM ENGINEER): Patient has improvement of her papilledema and [...] on file Legal Sex Female 7:47 PM SECURITY SYSTEM ENGINEER Gender Identity Not on file Sexual Orientation [...] patient's age to complete this topic Insurance [employer] H[employer]/PPO Address: [id number] [place] [phone] [address] [facility] Care Teams Handbell Choir Director Relationship Specialty Start Date End Date Neva Bentley PA [address] [place] [id number] PCP - General Nurse Practitioner 04/01/20
--- OUTSIDE RECORDS SUMMARY | 2024-09-06 01:05 | XMS_ITS | Referral Summary ---
Author Organization [facility] [place] [facility] Address [facility] [place] [address] Care Team Providers Care Conference Concierge Name Role Phone Neva Bentley Primary Care [...] 05/06/2020 Assessment & Plan (06/03/2020 10:42 AM AIRCRAFT AVIONICS TECHNICIAN): Patient's MRI cervical spine is normal by report. She can continue home exercises as well as actb-laf-oyfqaab anti-inflammatories on an as-needed basis. Assessment & [...] year. Assessment & Plan (06/03/2020 10:42 AM AIRCRAFT AVIONICS TECHNICIAN): Patient has improvement of her papilledema and [...] on file Legal Sex Female 7:47 PM AIRCRAFT AVIONICS TECHNICIAN Gender Identity Not on file Sexual Orientation [...] Plan of Treatment Not on file Insurance [facility] OPEN ACCESS [facility] HMO/PPO Address: [address] [place] [address] [facility] Care Teams Conference Concierge Relationship Specialty Start Date End Date Neva Bentley PA [address] [place] [id number] PCP - General Nurse Practitioner 04/01/20
[2024-09-06] MEDS: LACTATED RINGERS 1,000 ML 125 ML IV CONT ×2 (06:15→08:16)
[2024-09-06] MEDS: ACETAMINOPHEN 500 MG TABLET 1000 MG PO (07:03)
--- NOTE | 2024-09-06 07:46 | WPDHPUPDATE1 ---
History and Physical Update Update Date/Time: 09/06/24 07:46 History and Physical has been reviewed, including an updated exam of the patient. There are NO changes in the patient's condition. Risks, benefits, and alternatives have been discussed and questions answered. Patient agrees to proceed with procedure.
--- NOTE | 2024-09-06 07:47 | P.HP_ITS ---
H&P: HPI History of Present Illness Date/Time: 09/06/24 07:47 Chief Complaint: Repeat C- Section Narrative: The patient is a 29-year-old 2 para 1 admitted at 39 and 6 7th weeks for repeat section. has been uncomplicated. labs A- positive, rubella immune, RPR negative, hepatitis-B surface antigen negative, HIV negative, group B strep negative. Review of Systems Review of Systems: not repeated day of surgery; patient states no changes in status PMF Past Medical History Medical History (Updated 06/23/24 @ 00:03 by Maya Russell) Idiopathic intracranial hypertension History of kidney stones Morbid obesity with BMI of 50.0-59.9, adult Surgical History Surgical History (Updated 09/06/24 @ 07:49 by Angie Ames MD) History of History of tonsillectomy Family History Family History Father Hypertension Lung cancer Father No problems noted. Grandparent Lung cancer Diabetes mellitus Grandparent Diabetes mellitus Grandparent Breast cancer Social History Social History Smoking status: Never smoker Substance use: never Do You Feel Safe in your Home?: Yes Lack of Transportation: No Lack of Food: Never True Current Housing: I Have Housing Concerned About Future Housing: No Difficulty Paying Gas/Electric Bills: No Difficulty Paying for Meds: No Currently Unemployed: No Education: High School Diploma/GED Difficulty w/ Childcare or Family Care: No Gender identity (if verbalized by the patient): Female Spiritual care concerns: No Meds Home Medications and Allergies Home Medications ?Medication ?Instructions ?Recorded ?Confirmed ?Type loratadine 10 mg tablet (Claritin) 10 mg PO DAILY 02/19/22 08/23/24 History acetazolamide 250 mg tablet 500 mg PO DAILY 03/04/22 08/23/24 History aspirin 81 mg chewable tablet 81 mg PO DAILY 08/23/24 08/23/24 History (Children's Aspirin) magnesium glycinate mg PO 08/23/24 History vit no.95-ferrous 1 tablet PO DAILY 08/23/24 08/23/24 History fumarate 28 mg-folic acid 800 mcg tablet () Allergies Allergy/AdvReac Type Severity Reaction Status Date / Time No Known Allergies Allergy Verified 08/23/24 14:18 Vital Signs Vital Signs - 24 hr 09/06/24 06:12 09/06/24 06:46 09/06/24 07:00 Pulse Rate 94 92 Blood Pressure 137/53 L 131/67 Oxygen Delivery Room Air 09/06/24 07:31 09/06/24 07:46 Pulse Rate 87 87 Blood Pressure 119/63 117/71 Oxygen Delivery Exam Const: General: healthy appearing, alert and obese (Most recent office weight 371 pre weight 370) Orientation/consciousness: patient oriented x3 Resp: Effort & Inspection: normal respiratory effort GI: GI Palp: Yes Soft to palpation, No Tenderness to palpation present (GI) and No Palpable mass present : External Female Exam: normal external appearance Speculum Exam - Vagina: normal appearance of the vagina and normal vaginal discharge Speculum Exam - Cervix: normal appearance of the cervix Bimanual exam- vagina & uterus: uterine size normal and consistency normal Bimanual Exam- Adnexa, other: normal adnexae and No adnexal tenderness Neuro: General: patient oriented x3 Assessment and Plan Assessment and plan (1) 39 weeks gestation of : Code(s): Z3A.39 - 39 weeks gestation of Status: Acute (2) History of : Code(s): Z98.891 - History of uterine scar from previous surgery Status: Acute Assessment and Plan: Plan to proceed with primary section
--- NOTE | 2024-09-06 07:55 | P.PNAN_ITS ---
Anes - Initial Pre Proc Eval Procedure: Operation Date: 09/06/24 07:30 Proposed Procedures p Repeat Section - Angie Ames MD Date/Time: 09/06/24 07:55 Surgeon: Angie Ames MD Pre Op Diagnosis: C/S Patient Data Age: 29 Gender: F Height: 1.7 m Weight: 161.2 kg Last Vital Signs Pulse 87 09/06/24 07:46 BP 117/71 09/06/24 07:46 O2 Del Method Room Air 09/06/24 06:12 Allergies Allergy/AdvReac Type Severity Reaction Status Date / Time No Known Allergies Allergy Verified 08/23/24 14:18 Home Medications ?Medication ?Instructions ?Recorded ?Confirmed ?Type loratadine 10 mg tablet (Claritin) 10 mg PO DAILY 02/19/22 08/23/24 History acetazolamide 250 mg tablet 500 mg PO DAILY 03/04/22 08/23/24 History aspirin 81 mg chewable tablet 81 mg PO DAILY 08/23/24 08/23/24 History (Children's Aspirin) magnesium glycinate mg PO 08/23/24 History vit no.95-ferrous 1 tablet PO DAILY 08/23/24 08/23/24 History fumarate 28 mg-folic acid 800 mcg tablet () Patient hx anesthesia problems: none Family hx anesthesia problems: none Results Review: All pre-operative results and documents have been reviewed as part of the pre- operative evaluation. [facility] Past Medical History Medical History Idiopathic intracranial hypertension History of kidney stones Morbid obesity with BMI of 50.0-59.9, adult Surgical History Surgical History History of History of tonsillectomy Family History Family History Father Hypertension Lung cancer Father No problems noted. Grandparent Lung cancer Diabetes mellitus Grandparent Diabetes mellitus Grandparent Breast cancer Social History Social History Smoking status: Never smoker Substance use: never Do You Feel Safe in your Home?: Yes Lack of Transportation: No Lack of Food: Never True Current Housing: I Have Housing Concerned About Future Housing: No Difficulty Paying Gas/Electric Bills: No Difficulty Paying for Meds: No Currently Unemployed: No Education: High School Diploma/GED Difficulty w/ Childcare or Family Care: No Gender identity (if verbalized by the patient): Female Spiritual care concerns: No Anes - Eval Final PreProcedure Day of Procedure 09/06/24 07:55 Patient weight: morbidly obese Heart: regular rate and rhythm Lungs: clear to auscultation Airway: Mallampati scale class II Neurological: alert and oriented Last oral intake: >/= 8 hours ASA classification: III Emergent: no Anesthetic plan: proceed Anesthesia type and monitoring: regional spinal and standard monitoring Results Review: All pre-operative results and documents have been reviewed as part of the pre- operative evaluation. Informed Consent: The patient's anesthetic plan and its attendant risks and benefits were discussed with the patient/family/POA. Questions were solicited and answers provided to the satisfaction of the patient/family/POA.
[2024-09-06] MEDS: ceFAZolin 3 GM/D5W 100 ML 100 ML IVPB (08:00)
[2024-09-06] MEDS: FAMOTIDINE 20 MG/2 ML VIAL IV PUSH (08:14)
[2024-09-06] MEDS: ONDANSETRON INJ 4 MG/2 ML VIAL IV PUSH (08:14)
--- NOTE | 2024-09-06 09:27 | P.PCNOB_ITS ---
OB - Delivery Note Procedure Delivery date: 09/06/24 Pre-op diagnosis: Previous Delivery Post-op Diagnosis: Same Induction method: None Delivery monitor: External FHT and External Uterine Prior to decision for section, ACOG/SMFM labor guidelines were considered and discussed with the patient and staff. Decision made to proceed with the section.: Yes Procedure Performed: Repeat Secondary branch: low cervical, transverse Surgeon: Angie Ames MD Anesthesia type: Spinal Description of Procedure/Findings: Patient was taken to the operating room and placed under anesthesia in the dorsal supine position with a leftward tilt. Once anesthesia was deemed adequate the patient was prepped and draped in the usual sterile fashion. The Trexi retractor is placed. The skin incision was made through the prior incision. The incision was carried down to the fascia which was nicked in the midline and extended laterally using Kenyon scissors. Ochsner was used to tent the fascia which was then dissected off using sharp dissection due to adhesions. The Amaya bulb is palpable at the lower edge of the incision therefore the peritoneum was entered very high in the incision. The peritoneum and bladder flap are densely adherent to the mid uterus approximately 5cm above the lower uterine incision. This is dissected off using sharp dissection and Bovie cautery. The bladder flap is then well below the lower uterine incision and the Calin O retractor is able to be placed. The lower uterine segment was incised in a transverse fashion with the scalpel and extended with blunt traction. The membranes are ruptured and meconium fluid is noted. The 's feet are noted at the incision and our grasped and pulled through the incision to the infant's scapula. The was rotated and the right arm splinted and delivered. The infant was rotated and the left arm splinted and delivered. The infant is extended on the abdomen and the head delivered. The infant has poor tone therefore the cord was clamped and cut and the infant handed to the waiting nursery nurse. The cord blood cord gases were taken. The placenta was delivered using manual traction. The uterus was cleared of all clots and debris. The uterine incision was closed using 0 Monocryl in a running locked fashion with the same suture used to imbricate the incision has good hemostasis. The area approximately 5cm above the incision where the adhesions were taken down required a running stitch of 0 Monocryl for hemostasis. The gutters were then irrigated and the incisions again noted to be hemostatic. The peritoneal edge where the incision was taken down was also bleeding and had a pretty significant raw surface approximately 2cm around where with attached. This was oversewn using 0 Monocryl in a running stitch. Good hemostasis was then noted. The Calin O retractor was then removed and the fascia closed using 0 Vicryl in a running stitch. The subcutaneous tissues are made hemostatic using Bovie cautery. The skin incision was closed using 4-0 Vicryl in a subcuticular fashion. Dermaflex and Mepilex dressing are placed. The sponge, needle, and instrument counts are correct per the OR staff. Patient received Ancef prior to incision. Patient was taken to recovery in stable condition. Specimen: Yes (Placenta) Estimated Blood Loss: 645 Drains: Yes (Amaya catheter) Packing: No Complications: No immediate complications Condition: Stable Disposition: Floor [place] Baby Date of : 09/06/24 Gestational Age by Date: 39 (39 6/7) Infant gender: Female Weight (pounds): 9 Weight (ounces): 1 presentation: breech (footling) position: Left Sacrum Posterior Placenta delivery description: Spontaneous Cord Vessel Description: 3 Vessels score one minute: 8 score five minutes: 9
[2024-09-06] MEDS: fentaNYL CITRATE INJ (*CRX) 100 MCG/2 ML VIAL IV PUSH ×3 (10:50→11:26)
[2024-09-06] MEDS: LORATADINE 10 MG TABLET PO (11:21)
[2024-09-06] MEDS: DEXTROSE 5%/0.45% SOD CHL 1,000 ML 125 ML IV CONT ×2 (12:51→23:57)
[2024-09-06] MEDS: KETOROLAC 15 MG/ML VIAL (*BKC) IV PUSH ×2 (12:53→19:42)
[2024-09-06] MEDS: ACETAMINOPHEN 325 MG TABLET 650 MG PO ×2 (12:53→19:42)
[2024-09-06] MEDS: SIMETHICONE 80 MG TAB.CHEW PO ×2 (12:54→16:02)
--- NOTE | 2024-09-06 13:32 | OBPPTRN ---
Patient transferred to post room #290 via (stretcher). Support person present. Oriented to unit, room, information board, rooming in, admission packet and security measures. Patient verbalizes understanding.
[2024-09-06] MEDS: METOCLOPRAMIDE HCL INJ 10 MG/2 ML VIAL IV PUSH (15:59)
[2024-09-06] MEDS: DOCUSATE SODIUM 100 MG CAPSULE PO (16:07)
[2024-09-06] MEDS: oxyCODONE HCL (*CRX) 5 MG TAB IR PO ×2 (17:10→21:57)
--- NOTE | 2024-09-06 17:16 | PC.NURSE ---
1400. Breast pump provided due to moms request, she would like to pump and feed from bottle. Mom stated she does not want to bring baby to the breast to feed. Instructions given on cleaning, care, usage, that there should be no pain, pumping schedule for milk production, collection, and storage of human milk. Patient was assessed for correct placement, flange size, to pump for comfort and nipple stretching/stimulation for adequate milk production every 3 hours (8 times in 24 hours) 1-2 times at night. Parents are encouraged to record the pumping schedule on the feeding sheet.?Mother voiced understanding of the education shared along with mom/baby guide and the pump measurement, flange fit handout for additional resource information. Reported to the Primary RN.
[2024-09-06] MEDS: diphenhydrAMINE HCl CAP 25 MG CAPSULE PO (21:52)
[2024-09-07] MEDS: ACETAMINOPHEN 325 MG TABLET 650 MG PO ×4 (01:38→21:39)
[2024-09-07] MEDS: KETOROLAC 15 MG/ML VIAL (*BKC) IV PUSH ×2 (01:39→07:30)
[2024-09-07 04:40] VITALS: BP 106/89; PULSE 84; RESP 14; TEMP 36.9; O2SAT 100
[2024-09-07] MEDS: oxyCODONE HCL (*CRX) 5 MG TAB IR PO ×5 (04:48→17:48)
[2024-09-07] MEDS: diphenhydrAMINE HCl CAP 25 MG CAPSULE PO (04:48)
[2024-09-07 05:08] LABS: Basophils Percent Auto 0.3 % (0.2-1.2); Eosinophils Absolute Auto 0.1 K/mm3 (0-0.3); Eosinophils Percent Auto 1.2 % (0-4.4); Hematocrit 29.5 % (37.0-47.0); Hemoglobin 9.3 g/dL (12.0-15.0); Immature Granulocyte Percent A 0.9 % (0-0.5); Lymphocytes Absolute Auto 2.48 K/mm3 (0.9-3.2); Mean Corpuscular HGB Conc 31.5 g/dl (32-36); Mean Corpuscular Hemoglobin 26.3 pg (26-34); Mean Corpuscular Volume 83.3 fl (80-100); Mean Platelet Volume 10.5 fl (7.4-10.4); Monocytes Absolute Auto 1.1 K/mm3 (0.1-0.6); Monocytes Percent Auto 9.5 % (2.6-8.5); Neutrophils Absolute Auto 7.5 K/mm3 (1.3-6.7); Neutrophils Percent Auto 66.1 % (45.5-73.1); Platelet Count Result 238 k/mm3 (150-375); Red Blood Count 3.54 M/mm3 (4.2-5.4); Red Cell Distribution Width 16.5 % (11.5-14.5); White Blood Count 11.3 K/mm3 (4.5-10.0)
[2024-09-07] MEDS: acetaZOLAMIDE TAB 250 MG TABLET 500 MG PO (07:32)
[2024-09-07] MEDS: MULTIVIT/MIN/PREN/FOL AC/IRON TABLET 1 TAB PO (07:33)
[2024-09-07] MEDS: SIMETHICONE 80 MG TAB.CHEW PO ×3 (07:33→17:31)
[2024-09-07] MEDS: POLYSACCHARIDE IRON COMPLEX 150 MG CAPSULE PO ×2 (07:33→17:31)
[2024-09-07] MEDS: DOCUSATE SODIUM 100 MG CAPSULE PO (07:33)
--- NOTE | 2024-09-07 07:44 | P.PNOB_ITS ---
OB - PN: Subj Subjective Date/time seen: 09/07/24 07:44 Patient comments: no complaints and pain well controlled baby status: doing well OB - PN: Obj Data Labs 09/07/24 04:42 Labs: Laboratory Results - last 24 hr 09/07/24 04:42 WBC 11.3 H RBC 3.54 L Hgb 9.3 L Hct 29.5 L MCV 83.3 MCH 26.3 MCHC 31.5 L RDW 16.5 H Plt Count 238 MPV 10.5 H Immature Gran % (Auto) 0.9 H Neut % (Auto) 66.1 Lymph % (Auto) 22.0 Thomas % (Auto) 9.5 H Eos % (Auto) 1.2 Baso % (Auto) 0.3 Lymph # (Auto) 2.48 Thomas # (Auto) 1.1 H Eos # (Auto) 0.1 Baso # (Auto) 0.0 Abs Immat Gran (auto) 0.10 H Absolute Neuts (auto) 7.5 H Absolute Nucleated RBC 0.000 Nucleated RBC % 0.0 OB - PN A/P Plan day: 1 Plan: routine care Time Spent With Patient Time: Total time spent is greater than 50% in coordination of care (as documented) at patient's floor/unit and/or counseling patient: Exam 2 Narrative: bandage intact : Bimanual exam- vagina & uterus: other (Uterus firm, nt @U)
[2024-09-07 08:00] VITALS: BP 118/60; PULSE 82; RESP 14; TEMP 36.9; O2SAT 96
--- NOTE | 2024-09-07 08:05 | WPDANLDPN2 ---
Anes-Prog Note L&D Date/Time: 09/07/24 08:05 Comfortable throughout: section Neuraxial method: spinal Epidural/Spinal procedure site: clean & non-tender Neuro status: Neuro function grossly intact. Cardiovascular status: normal Respiratory status: normal Airway patency: baseline Mental status: baseline Post-Op hydration status: normal Vital Signs: Last Vital Signs Temp 36.9 C 09/07/24 04:40 Pulse 84 09/07/24 04:40 Resp 14 09/07/24 04:40 BP 106/89 09/07/24 04:40 Pulse Ox 100 09/07/24 04:40 O2 Del Method Room Air 09/06/24 16:00 Pain score (VAS): 2/10 I/O: Intake & Output 09/06/24 09/07/24 09/07/24 23:59 07:59 15:59 Intake Total 1800 500 Output Total 275 1100 Balance 1525 -600 Post-procedural complaints: nausea moderate, treatment effective and pruritis moderate, treatment effective Patient feedback: Patient satisfied with anesthetic care.
--- NOTE | 2024-09-07 08:06 | WPDANLDNPN2 ---
Anes-Prog Note L&D-Neuraxial Date/Time: 09/07/24 08:06 Neuraxial medications: intrathecal PF morphine Opiod-related complaints: none Patient feedback: Patient satisfied with post-operative pain management.
--- NOTE | 2024-09-07 14:00 | PC.NURSE ---
Introductions were made, then consulted with patient to assess needs related to . Discussed with mother her?plans to feed?her and the?experience so far. She has pumped with the hospital pump once and she got 10ml of colostrum. She states that she needs a 19mm flange but we only have a 21mm for the [facility] pumps. Assured her that a 21mm should be ok and we discussed the pump settings and how to adjust the suction to the highest comfortable setting. Mom only wants to pump and bottle feed rather than put baby to breast. Patient agrees to call out later for an assessment of a pumping session. Resources provided for inpatient and outpatient services with the feeding sheet, mom/baby guide and name/number written on the communication board. Mother voiced understanding of information and will call if there is a request for assistance. Reported to the Primary RN.
[2024-09-07] MEDS: IBUPROFEN 600 MG TABLET PO ×2 (14:37→21:39)
[2024-09-07 20:45] VITALS: BP 116/56; PULSE 85; RESP 12; TEMP 37.1; O2SAT 99
[2024-09-07] MEDS: oxyCODONE HCL (*CRX) 5 MG TAB IR 10 MG PO (21:37)
[2024-09-08] MEDS: MORPHINE SULFATE (*CRX) 2 MG/ML INJ IV PUSH ×2 (01:02→06:34)
[2024-09-08] MEDS: ACETAMINOPHEN 325 MG TABLET 650 MG PO ×4 (04:04→22:40)
[2024-09-08] MEDS: IBUPROFEN 600 MG TABLET PO ×4 (04:07→22:40)
[2024-09-08 09:30] VITALS: BP 144/82; PULSE 83; RESP 18; TEMP 37; O2SAT 98
[2024-09-08] MEDS: POLYSACCHARIDE IRON COMPLEX 150 MG CAPSULE PO ×2 (10:04→16:30)
[2024-09-08] MEDS: MULTIVIT/MIN/PREN/FOL AC/IRON TABLET 1 TAB PO (10:04)
[2024-09-08] MEDS: DOCUSATE SODIUM 100 MG CAPSULE PO ×2 (10:04→16:30)
[2024-09-08] MEDS: SIMETHICONE 80 MG TAB.CHEW PO ×3 (10:05→16:30)
[2024-09-08] MEDS: acetaZOLAMIDE TAB 250 MG TABLET 500 MG PO (10:08)
--- NOTE | 2024-09-08 11:20 | PC.NURSE ---
Introductions were made, then consulted with patient to assess needs related to . Discussed with mother her?plans to feed?her and the?experience so far. Mother has dang bottle feeding baby, breast pump was provided. Per mother, she has used her breast pump a few times but feels like she needs a smaller size flange, using the size 21 flange now with the [facility] Medela pump, we unfortunately do not carry the size 19. Mother has already received a breast pump through her insurance and is not going home today, RN recommended that father of the baby go home and get her pump so she can pump with the correct flange size. Per mother, she will think about it. Resources provided for inpatient and outpatient services with the feeding sheet, mom/baby guide and name written on the communication board. Mother voiced understanding of information and will call if there is a request for assistance. Reported to the Primary RN.
--- NOTE | 2024-09-08 11:21 | P.PNOB_ITS ---
OB - PN: Subj Subjective Date/time seen: 09/08/24 11:21 Patient comments: pain well controlled (yesterday pain increased and required iv morphine to break pain. Improved today.) and flatus present (+BM) baby status: doing well OB - PN: Obj Data Labs 09/07/24 04:42 OB - PN A/P Plan day: 2 Plan: routine care Time Spent With Patient Time: Total time spent is greater than 50% in coordination of care (as documented) at patient's floor/unit and/or counseling patient: Exam 2 Narrative: bandage intact : Bimanual exam- vagina & uterus: other (Uterus firm, nt @U)
[2024-09-08] MEDS: oxyCODONE HCL (*CRX) 5 MG TAB IR 10 MG PO ×2 (12:46→18:28)
[2024-09-08 21:40] VITALS: BP 132/71; PULSE 93; RESP 18; TEMP 36.9; O2SAT 98
[2024-09-09] MEDS: oxyCODONE HCL (*CRX) 5 MG TAB IR 10 MG PO ×3 (01:10→14:35)
[2024-09-09] MEDS: ACETAMINOPHEN 325 MG TABLET 650 MG PO ×2 (05:20→11:41)
[2024-09-09] MEDS: IBUPROFEN 600 MG TABLET PO ×2 (05:20→11:41)
[2024-09-09] MEDS: SIMETHICONE 80 MG TAB.CHEW PO ×2 (07:48→11:41)
[2024-09-09] MEDS: DOCUSATE SODIUM 100 MG CAPSULE PO (07:49)
[2024-09-09] MEDS: acetaZOLAMIDE TAB 250 MG TABLET 500 MG PO (07:49)
[2024-09-09] MEDS: POLYSACCHARIDE IRON COMPLEX 150 MG CAPSULE PO (07:49)
[2024-09-09] MEDS: MULTIVIT/MIN/PREN/FOL AC/IRON TABLET 1 TAB PO (07:49)
[2024-09-09 08:10] VITALS: BP 141/80; PULSE 83; RESP 18; TEMP 36.4; O2SAT 97
--- NOTE | 2024-09-09 09:28 | P.PNOB_ITS ---
OB - PN: Subj Subjective Date/time seen: 09/09/24 09:28 Patient comments: no complaints and pain well controlled baby status: doing well OB - PN: Obj Data Labs 09/07/24 04:42 OB - PN A/P Plan day: 2 Plan: routine care and discharge home Time Spent With Patient Time: Total time spent is greater than 50% in coordination of care (as documented) at patient's floor/unit and/or counseling patient: Exam 2 Narrative: bandage c/d/i : Bimanual exam- vagina & uterus: other (Uterus firm, nt @U)
--- NOTE | 2024-09-09 09:29 | PM.OBDSVD ---
DS: Admitting Diagnosis Discharge Date 09/09/24 Admitting Diagnosis Intrauterine at 39 weeks Repeat DS: Discharge Diagnosis Discharge Diagnosis (1) delivery delivered: Code(s): O82 - Encounter for delivery without indication Status: Acute OB - DS: Summary OB Procedures : NST and Ultrasound OB Procedures Intrapartum: low cervical, transverse OB Procedures: : None Peripartum Data Delivery Method: Section Procedures: Procedures Operation Date: 09/06/24 07:30 Actual Procedure Side Surgeon p Section Angie Ames MD complications: none Status at Discharge Functional status at discharge: independent ambulation Overall status at discharge: patient is progressing back to baseline Time Spent with Patient Time attestation: Total time spent providing and/or coordinating discharge services: DS: Data Data Completed and Pending Pending studies at discharge: Pending at discharge 09/06/24 10:01 Surgical [PTH] Routine Discharge Plan Discharge Attending physician on discharge: Angie Ames Discharging Clinician: Angie Ames Anticipated Discharge Date/Time: 09/09/24 09:30 Patient Disposition: Home, Self-Care Activity: may shower and pelvic rest Diet: regular Wound Care Instructions: keep dressing dry Patient Instructions: Antibiotic Form Patient Language: Jamaican Stand Alone Forms: General Discharge Information Follow-up/Referrals: Angie Ames MD [Physician] - 1 Week (And 6 week) Discharge Medications: New oxycodone 5 mg Tablet 5 mg PO Q4H PRN (Reason: Pain Rated 5-7) Qty: 30 0RF Continued acetazolamide 250 mg tablet 500 mg PO DAILY PNV cmb#95-ferrous fumarate-FA [] 28 mg iron- 800 mcg tablet 1 tablet PO DAILY magnesium glycinate 100 mg magnesium capsule PO Discontinued loratadine [Claritin] 10 mg Tablet 10 mg PO DAILY aspirin [Children's Aspirin] 81 mg tablet,chewable 81 mg PO DAILY Date of admission: 09/06/24 05:40 Primary Care Provider: Sheree,Neva Admitting Provider: Angie Ames Attending physician on admission: Angie Ames Condition: Stable
[2024-09-11 08:43] VITALS: BP 140/65; PULSE 91; RESP 18; TEMP 37.6; O2SAT 100
== END 2024-09-09 14:45 | disposition home or self-care (01) | DRG 788 ==
LOC: ANHLDR 05:46 → ANHOB2 12:13
PROVIDERS: Admitting Provider Obstetrics & Gynecology Gynecology; PCP Registered Nurse; Visit Provider Obstetrics & Gynecology Gynecology
PROC: 10D00Z1 Extraction of Products of Conception, Low, Open Approach (ICD-10-PCS; CPT 59514; principal; 2024-09-06 07:30)
DX: O34.219 Maternal care for unspecified type scar from previous cesarean delivery (principal); O32.8XX0 Maternal care for other malpresentation of fetus, not applicable or unspecified; O99.214 Obesity complicating childbirth; E66.01 Morbid (severe) obesity due to excess calories; O77.0 Labor and delivery complicated by meconium in amniotic fluid; Z3A.39 39 weeks gestation of pregnancy; Z37.0 Single live birth
CPT/HCPCS: 36415; 85025; 88307; A9270; J0690; J1885; J2270; J2274; J2405; J2765; J3010; J7120

== ENCOUNTER 2024-09-17 11:59 | Outpatient (CLI) | payer OTHER, SELFPAY ==
[2024-09-17] VITALS (23 sets, daily range): BP systolic 98–154; BP diastolic 54–76; PULSE 50–89; O2SAT 94–100
--- NOTE | ~2024-09-17 | XR_ITS ---
EXAMINATION: XR chest 2V DATE: 09/17/2024 12:47 INDICATION: Shortness of breath. TECHNIQUE: Frontal and lateral views of the chest were obtained. COMPARISON: Chest single view 05/27/2024 FINDINGS: There is no pneumonia, pleural effusion, or pneumothorax. The heart size is normal. IMPRESSION: 1. No acute cardiopulmonary disease. Reviewed, dictated and finalized at location A. EL ENGINE ERECTOR
--- NOTE | 2024-09-17 12:12 | PC.NURSE ---
Dr Ames informed of c/o SOB and Palpatations. Orders received for chest xraym, EKG, and labs.
--- NOTE | 2024-09-17 12:13 | ECG_ITS ---
Test Date: 2024-09-17 13:11:02 Measurements Intervals Orient Rate: 59 P: 30 AZ: 146 QRS: 39 QRSD: 93 T: 33 QT: 431 QTc: 428 Interpretive Statements SINUS BRADYCARDIA WITH SINUS ARRHYTHMIA MINIMAL Q WAVES- INFERIOR LEADS BORDERLINE ECG Compared to ECG 05/27/2024 23:30:08 HEART RATE HAS DECREASED Electronically Signed On 09-17-2024 13:19:43 TRAILER PARK MANAGER by Omero Umanzor D.O.
[2024-09-17 12:27] LABS: Basophils Percent Auto 0.4 % (0.2-1.2); Eosinophils Absolute Auto 0.1 K/mm3 (0-0.3); Eosinophils Percent Auto 1.4 % (0-4.4); Hematocrit 32.6 % (37.0-47.0); Hemoglobin 10.3 g/dL (12.0-15.0); Immature Granulocyte Absolute 0.06 K/mm3 (0.00-0.031); Immature Granulocyte Percent A 0.7 % (0-0.5); Lymphocytes Absolute Auto 1.93 K/mm3 (0.9-3.2); Lymphocytes Percent Auto 23.2 % (18.3-44.2); Mean Corpuscular HGB Conc 31.6 g/dl (32-36); Mean Corpuscular Hemoglobin 25.6 pg (26-34); Mean Corpuscular Volume 80.9 fl (80-100); Monocytes Absolute Auto 0.6 K/mm3 (0.1-0.6); Monocytes Percent Auto 6.7 % (2.6-8.5); Neutrophils Absolute Auto 5.6 K/mm3 (1.3-6.7); Neutrophils Percent Auto 67.6 % (45.5-73.1); Platelet Count Result 322 k/mm3 (150-375); Red Blood Count 4.03 M/mm3 (4.2-5.4); Red Cell Distribution Width 14.9 % (11.5-14.5); White Blood Count 8.3 K/mm3 (4.5-10.0)
[2024-09-17 12:44] LABS: Alanine Aminotransferase 19 U/L (6-35); Albumin Level 3.5 g/dL (3.5-5.1); Alkaline Phosphatase 114 U/L (38-126); Anion Gap 11 mmol/L (4-12); Aspartate Amino Transferase 25 U/L (14-36); Bilirubin,Total 0.5 mg/dL (0.2-1.3); Blood Urea Nitrogen 15 mg/dL (7-17); Calcium 8.9 mg/dL (8.4-10.2); Carbon Dioxide 23 mmol/L (22-30); Chloride 106 mmol/L (98-107); Estimated Glomerular Filt Rate > 60; Glucose 83 mg/dL (65-110); Potassium 3.9 mmol/L (3.4-5.0); Sodium 140 mmol/L (137-145)
--- OUTSIDE RECORDS SUMMARY | 2024-09-17 13:48 | XMS_ITS | Encounter Summary ---
Author Organization [facility] Address [address] [place] [id number] Care Team Providers Care Body Former Name Role Phone Neva Bentley Primary Care Provider [phone] Angie Ames MD Unavailable [phone] Encounter Details Date Type Department Care Team (Late st Contact Info) Description 06/23/2021 [employer] Message Enc [facility] [id number] [place] [address] Neva Bentley APNP [address] [place] [address] Follow Up/Update Social History Tobacco [...] appt as test ordered was sent there 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 documented in this encounter Plan of Treatment Not on file documented as of this encounter Visit Diagnoses Not on filedocumented in this encounter Additional Health Concerns Infection Onset Date Last Indicated Resolved Time COVID-19 Rule Out 07/16/2021 07/17/2021 07/23/2021 12: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 COVID-19 Confirmed 07/17/2021 07/17/2021 12:33 AM FISH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 COVID-19 Rule Out 10/01/2022 10/01/2022 10/01/2022 2:33 PM FISH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 COVID-19 Rule Out 10/01/2022 10/01/2022 10/02/2022 7:32 PM FISH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 COVID-19 Rule Out 09/07/2023 09/07/2023 09/07/2023 12:16 PM FISH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
--- OUTSIDE RECORDS SUMMARY | 2024-09-17 13:48 | XMS_ITS | Encounter Summary ---
Author Organization [facility] Address [address] [place] [address] Care Team Providers Care Galley Worker Name Role Phone Neva Bentley Primary Care Provider [phone] Angie Ames MD Unavailable [phone] Encounter Details Date Type Department Care Team (Late st Contact Info) Description 07/29/2023 ConnectionPlus Message [facility] Family & Internal Medicine [address] [phone] [facility] Provider Re: Inhaler Social History Tobacco Use [...] Rule Out 09/07/2023 09/07/2023 09/07/2023 12:16 PM THERAPEUTIC PROGRAM WORKER COVID-19 Confirmed 09/07/2023 09/07/2023 12:33 AM THERAPEUTIC PROGRAM WORKER Assessment Noted Time PHQ-9 Depression Total Score: 6 08/20/19 23 10:06 AM THERAPEUTIC PROGRAM WORKER documented as of this encounter Care Teams Galley Worker Relationship Specialty Start Date End Date Neva Bentley APNP [address] [place] [address] PCP - General NURSE PRACTITIONER 02/20/19 Angie Ames MD [address] [address] OBGYMadina 06/04/24 documented as of this encounter
--- OUTSIDE RECORDS SUMMARY | 2024-09-17 13:48 | XMS_ITS | Clinical Summary ---
Author Organization [facility] Care Team Providers Care Hand Pleater Name Role Phone Unavailable Primary Care Provider [...]
--- OUTSIDE RECORDS SUMMARY | 2024-09-17 13:48 | XMS_ITS | Clinical Summary ---
Author Organization [facility] [place] [address] Care Team Providers Care Die Engraver Name Role Phone Neva Bentley Primary Care Provider [phone] Angie Ames MD Unavailable [phone] Allergies No known active allergies Medications Multiple [...] can continue home exercises as well as zmjq-agl-yjlgxhs anti-inflammatories on an as-needed basis. Pseudotumor cerebri [...] Encounters Date Type Department Care Team Description 09/05/2024 Scan [facility] SRVCS Scanned, Doc Med Group Lab (SCAN) 08/01/2024 Telephone [facility] [address] [address] Kodi Hou MD Results 07/03/2024 7:59 AM COMBER OPERATOR - 07/03/2024 11:59 PM COMBER OPERATOR Hospital Encounter [facility] Non [place]vasive [place] [address] Kodi Hou MD Discharge Disposition: Home or Self Care (Routine Discharge) 07/03/2024 Travel 06/26/2024 Abstract [facility] [address] [address] Kavya Guevara, PLASTIC SURGEON 06/22/2024 Scan [facility] INFO SRVCS Scanned, Doc Med Group from Last 3 Months Immunizations Name Administration [...] 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 Not on file Not on file Last Filed Vital Signs Vital Sign Reading Time Taken Comments Blood Pressure 122/62 06/06/2024 2:06 PM COMBER OPERATOR Pulse 84 06/06/2024 2:06 PM COMBER OPERATOR Temperature 36.9 C (98.4 F) 04/27/2023 9:07 AM CDT Respiratory Rate 16 04/27/2023 9:07 AM CDT Oxygen Saturation 97% 04/27/2023 9:07 AM CDT Inhaled Oxygen Concentration - - Weight 165.6 kg (365 lb) 06/06/2024 2:06 PM COMBER OPERATOR Height 170.2 cm (5' 7 ) 06/06/2024 2:06 PM COMBER OPERATOR Body Mass Index 57.17 06/06/2024 2:06 PM COMBER OPERATOR Plan of Treatment Health Maintenance Due Date Last Done Comments Cervical Cancer Screening Pa p Smear (Age 30 to 64) Every 3 Years 1993 Hepatitis B Vaccines (1 of 3 - 19+ 3-dose series) 2012 Cervical Cancer Screening Pa p with HPV Testing (Age 30 to 64) Every 5 Years 2023 Cervical Cancer Screening wi th HPV 2023 COVID-19 Vaccine (3 - 2023-2 5 season) 2024 12/04/2020, 11/02/2020 Influenza Adult (#1) 2024 04/27/2023, 07/03/2021, 05/22/2020 Annual Physical 04/27/2024 04/27/2023, 07/03/2021, 05/20/2020 PHQ-2 (Physician [place]) 07/25/2024 DTaP, Tdap and Td Vaccines ( [...] Procedure Name Priority Date/Time Associated Diagnosis Comments OUTSIDE LAB (SCAN ORDER) 09/05/2024 OUTSIDE LAB (SCAN ORDER) 09/05/2024 EVENT RECORDER (ECG) UP TO 30 DAYS COMPLETE Routine 07/24/2024 10:36 AM COMBER OPERATOR Palpitation USE ECHOCARDIOGRAM Routine 07/03/2024 8: 52 AM COMBER OPERATOR NAZARIO (dyspnea on exertion) HEPATITIS C ANTIBODY W/RFX TO HCV RNA Routine 05/22/2020 12:00 PM CDT from Last 3 Months or Most Recently Relevant to Health Maintenance Results * OUTSIDE LAB (SCAN ORDER) (09/05/2024) Only the most recent of2 resultswithin the time period is included. 09/05/2024 us Doc Med Group Scanned SCANNING Final Resu lt * CLINIC - OUTPATIENT EVENT RECORDER (ECG) UP TO 30 DAYS COMPLETE (Holter) (07/24/2024 10:36 AM COMBER OPERATOR) Narrative ARIELLE [place] - 07/24/2024 10:36 AM COMBER OPERATOR [image] [place], [place] [address] MOBILE CARDIAC TELEMETRY REPORT Patient Name: Trish Gomez : 1995 Performed At: [facility], [place] Interpreting Assistant Commissioner: Dr. Kodi Hou PCP: HALLEY Luna INDICATION: [...] CV VASCULAR ORDERABLES Final R esult [facility] [place] * USE ECHOCARDIOGRAM (07/03/2024 8:52 AM COMBER OPERATOR) Anatomical Region Laterality Modality Cardiac Echocardiogram 07/03/2024 9:20 AM COMBER OPERATOR Narrative 07/04/2024 12:54 PM COMBER OPERATOR Echocardiography Report Pat.Name: TRISH GOMEZ Pat.ID: [id number] .Date: 07/03/2024 Refer.MD: [id number] ALEXA Segura EWDPROV EWDPROV Exam Time: 9:20:00 [...] 37.3 mm Right and Left 0.784 Major Raiford 81.7 mm Ventricular Septum IVSd 1.32 cm [...] 07/04/2024 Echocardiography Report Pat.Name: TRISH GOMEZ Pat.ID: [id number] .Date: 07/03/2024 Anjum.: [id number] ALEXA Segura EWDPROV EWDPROV Exam Time: 9:20:00 AM Study Type:ECHO WITH CARDIAC DOPPLER COMP Height: 67 in Weight: 365 lb BSA: 2.61 m2 Age: 10 1995,28Y Sex: F BP: 114/52 HR: 78 bpm Sonogrphr: Guerita Vázquez, RCS Pat. Stat.:Outpatient Reason for Study:Dyspnea on [...] 37.3 mm Right and Left 0.784 Major Raiford 81.7 mm Ventricular Septum IVSd 1.32 cm [...] a test for HCV RNA (test code 14032) is suggested. For additional information please refer to http://education.DidLog.Trustribe/faq/UQZ19s0 (This link is being provided for informational/ educational purposes only.) 05/22/2020 12:0 0 PM CDT 05/22/2020 12:03 PM CDT us [facility] Final Resul t [facility] [address] [address], [place] [address] from Last 3 Months or Most Recently Relevant to Health Maintenance Insurance Care Teams Die Engraver Relationship Specialty Start Date End Date Neva Bentley APNP [address] [place] [address] PCP - General NURSE PRACTITIONER 02/20/19 Angie Ames MD [address] [address] RHONDA 06/04/24
--- OUTSIDE RECORDS SUMMARY | 2024-09-17 13:49 | XMS_ITS | Clinical Summary ---
Author Organization [facility] Address [address] [place] [phone] Phone Care Team Providers Care Clinical Ob Name Role Phone Unavailable Primary Care Provider Unavailabl e Encounters Date Type Department Care Team Description 09/11/2024 External Device Data STL ABSTRACTION Provider, Abstract 08/21/2024 External Device Data STL ABSTRACTION Provider, Abstract 08/15/2024 External Device Data [place] ABSTRACTION Provider, Abstract 08/15/2024 External Device Data [place] ABSTRACTION Provider, Abstract 08/09/2024 7:22 AM LEISURE STUDIES PROFESSOR - 08/09/2024 11:59 PM LEISURE STUDIES PROFESSOR Hospital Encounter [facility] [address] [place] [address] Mustapha Coombs MD Discharge Disposition: Home or Self Care 08/08/2024 External Device Data STL ABSTRACTION Provider, Abstract 07/12/2024 9:41 AM LEISURE STUDIES PROFESSOR - 07/12/2024 11:59 PM LEISURE STUDIES PROFESSOR Hospital Encounter [facility] [address] [place] [address] Mustapha Coombs MD Discharge Disposition: Home or [...] 3, 07/03/2021, 05/22/2020 COVID-19 Vaccine (3 - season) 2024 12/04/2020, 11/02/2020 DTAP/TDAP/TD VACCINES (2 - Td or Tdap) 05/22/2030 05/22/2020 HPV VACCINES Aged Out No longer eligi ble based on patient's age to complete this topic RSV VACCINE (60+ or ) (No Doses Required) Completed Procedures Procedure Name Priority Date/Time Associated Diagnosis Comments US OB FOLLOW UP PER FETUS Routine 08/09/2024 7:46 AM LEISURE STUDIES PROFESSOR Obesity affecting in third trimester, unspecified obesity type US OB FOLLOW UP PER FETUS Routine 07/12/2024 10:05 AM LEISURE STUDIES PROFESSOR Obesity affecting in third trimester, unspecified obesity type from Last 3 Months Results * US OB FOLLOW UP PER FETUS (08/09/2024 7:46 AM LEISURE STUDIES PROFESSOR) Only the most recent of2 resultswithin the time period is included. Anatomical Region Laterality Modality Pelvis Ultrasound 08/09/2024 7:25 AM LEISURE STUDIES PROFESSOR Narrative 08/09/2024 8:15 AM LEISURE STUDIES PROFESSOR STL FOLLOW UP ----- Pat. Name: TRISH GOMEZ Study Date: 08/09/2024 7:25am Pat. NO: [id number] Referring MD: AMY LINDO MD Site: [facility] Patroller: Rosita Feng RDMS : 1995 Age: 29 ----- INDICATION ----- Screening Follow-Up Maternal Obesity (BMI>40) Complicating CODING ----- Diagnoses Z3A.36: Weeks of gestation O99.213: Obesity complicating Z36.2: Encounter for other screening follow-up Procedures 97652: Ultrasound, uterus, real time with image documentation, [...] 6 lb 15 oz EFW by Hadlock ([id number]) Head / Face / Neck Biometry: Etcher Apprentice 3.1 mm Extremities / Bony Struc Biometry: [...] and date of were verified by the truck striker prior to the exam IMPRESSION ----- -Single [...] Pat. Name:Mina GOMEZ Date:08/09/2024 7:25am Pat. NO: [id number] MD:AMY LINDO MD [facility]Ros[facility] Feng RDMS :1995Age:29 ----- INDICATION ----- Screening Follow-Up Maternal Obesity (BMI>40) Complicating CODING ----- Diagnoses Z3A.36: Weeks of gestation O99.213: Obesity complicating Z36.2: Encounter for other screeningfollow-up Procedures 47138: Ultrasound, uterus, real time withimage documentation, follow up, transabdominal approach per fetus HISTORY ----- OB History 2. Para 1 MATERNAL ASSESSMENT ----- Physical Exam Weight 154 kg. BMI 53.25 kg/m METHOD ----- Transabdominal ultrasound examination ----- Thurman . Number of fetuses: 1 DATING ----- GA by prior [id number] w + 1 d KHADAR by prior [...] 6 lb 15 oz EFW by Hadlock ([id number]) Head / Face / Neck Biometry: Etcher Apprentice 3.1mm Extremities / Bony Struc Biometry: FL [...] and date of were verified by the truck striker prior tothe exam IMPRESSION ----- -Single living [...] - Final from Last 3 Months Insurance [facility] CHOICE [id number]
--- OUTSIDE RECORDS SUMMARY | 2024-09-17 13:49 | XMS_ITS | Referral Summary ---
Author Organization [facility] Address [facility] [place] [address] Care Team Providers Care Pen Tender Name Role Phone Neva Bentley Primary Care [...] 05/06/2020 Assessment & Plan (06/03/2020 10:42 AM SPARE FIXER): Patient's MRI cervical spine is normal by report. She can continue home exercises as well as zbxw-osz-uearwse anti-inflammatories on an as-needed basis. Assessment & [...] year. Assessment & Plan (06/03/2020 10:42 AM SPARE FIXER): Patient has improvement of her papilledema and [...] on file Legal Sex Female 7:47 PM SPARE FIXER Gender Identity Not on file Sexual Orientation [...] Plan of Treatment Not on file Insurance [facility] H[facility]/PPO Address: [address] [place] [address] [facility] H[facility]/PPO Address: [address] [address] [place] [address] Care Teams Pen Tender Relationship Specialty Start Date End Date Neva Bentley PA [address] [place] [address] PCP - General Nurse Practitioner 04/01/20
--- OUTSIDE RECORDS SUMMARY | 2024-09-17 13:49 | XMS_ITS | Patient Health Summary ---
Author Organization [facility] Address [address] [facility] [place] [address] Care Team Providers Care Manager Hris Name Role Phone Unavailable Primary Care Provider Unavailabl e Note from [facility],non-owned Affiliates and Associated Physician Practices is amultiple site organization consisting of ambulatory clinics and hospital sitesin [place], [place], [place] and [place]. This disclosure is being madepursuant to the Care Everywhere program and may not contain all information available regarding this patient. Last updated 18.[facility] Social History Tobacco Use Types Packs/Day Years Used Date Smoking Tobacco: Never Assessed Sex and Gender Information Value Date Recorded Sex Assigned at Not on file Gender Identity Not on file Sexual Orientation Not on file Procedures * DERMATOPATHOLOGY(Performed 09/25/2020) * DERMATOPATHOLOGY(Performed 11/28/2018) Results * DERMATOPATHOLOGY (09/25/2020 3:33 AM CASE RESOLUTION SPECIALIST) Only the most recent of2 resultswithin the time period is included. Case Report Dermatopathology Report Case: [id number] Authorizing Provider: Viridiana Olivia DO Collected: 09/25/2020 03:33 AM Ordering Location: [facility] DermPath Lab Received: 09/27/2020 12:47 PM Pathologist: Robin Hadley MD Specimen: Skin, superior vulva 5:01 PM CASE RESOLUTION SPECIALIST DERMATOPATHOLOGY LABORATORY Final Diagnosis Specimen A. SKIN, superior vulva: ACROCHORDONS (SOFT FIBROMAS, SKIN TAGS) (L91.8) 5:01 PM CASE RESOLUTION SPECIALIST DERMATOPATHOLOGY LABORATORY Clinical History ACR vs CONDY. 5:01 PM CASE RESOLUTION SPECIALIST DERMATOPATHOLOGY LABORATORY Gross Description Specimen A: Received is one formalin filled container labeled with the patient's name and designated superior vulva. The specimen consists of 2 pieces of shave measuring [id number] and [id number], bisected Jar 0. 1 5:01 PM [facility] DERMATOPATHOLOGY LABORATORY Microscopic Description Specimen A. SKIN, superior vulva: Sections show multiple polypoid pieces of skin each with a gently folded epidermis surrounding a connective tissue core in which fat and collagen are intermingled. 1 5:01 PM [facility] DERMATOPATHOLOGY LABORATORY Disclaimer An external and internal positive and negative controls are appropriate for the histochemical, immunohistochemical and immunofluorescence stain(s) in this case (if any), except where stated explicitly. The performance characteristics of the stain(s) cited in this report were developed and its performance characteristic determined by the Dermatopathology Laboratory at [facility], directed by Dr. Marixa Hadley. These tests need not be, and therefore are not, approved by the [place] Food and Drug Administration. The tests are used for clinical purposes. Billing Codes Specimen Charges Stain Charges 16741 1 1 5:01 PM [facility] DERMATOPATHOLOGY LABORATORY Embedded Images 1 5:01 PM [facility] DERMATOPATHOLOGY LABORATORY Pathology/Cytolo gy TISSUE SPECIMEN FROM SKIN / Unknown 09/25/2020 3:33 AM CASE RESOLUTION SPECIALIST 09/27/2020 12:47 PM CASE RESOLUTION SPECIALIST Viridiana Olivia DO LAB - PATHOLOGY/C YTOLOGY ORDERABLES DERMATOPATHOLOGY LABORATORY [facility] - Department of Dermatology [address], [address] [phone]
--- OUTSIDE RECORDS SUMMARY | 2024-09-17 13:49 | XMS_ITS | Encounter Summary ---
Author Organization [facility] Address [address] [place] [address] Care Team Providers Care Engine Lathe Tender Name Role Phone Neva Bentley Primary Care Provider [phone] Angie Ames MD Unavailable [phone] Encounter Details Date Type Department Care Team (Late st Contact Info) Description 10/06/2022 Yi Ji Electrical Appliance Message Enc [facility] Medical Group Family & Internal Medicine [address] [phone] [facility] Provider Test results Social History Tobacco Use [...] Coronavirus/COVID-19? No / Unsure 10/01/2022 1:18 PM CLOTH SHRINKING MACHINE OPERATOR documented as of this encounter Plan of Treatment Not on file documented as of this encounter Visit Diagnoses Not on filedocumented in this encounter Additional Health Concerns Infection Onset Date Last Indicated Resolved Time COVID-19 Rule Out 09/07/2023 09/07/2023 09/07/2023 12:16 PM CLOTH SHRINKING MACHINE OPERATOR COVID-19 Confirmed 09/07/2023 09/07/2023 12:33 AM CLOTH SHRINKING MACHINE OPERATOR Assessment Noted Time PHQ-9 Depression Total Score: 6 08/20/19 23 10:06 AM CLOTH SHRINKING MACHINE OPERATOR documented as of this encounter Care Teams Engine Lathe Tender Relationship Specialty Start Date End Date Neva Bentley APNP [address] [place] [address] PCP - General NURSE PRACTITIONER 02/20/19 Angie Ames MD [address] [address] RHONDA 06/04/24 documented as of this encounter
--- OUTSIDE RECORDS SUMMARY | 2024-09-17 13:49 | XMS_ITS | Encounter Summary ---
Author Organization [facility] Address [address] [place] [address] Care Team Providers Care Emr Implementation Specialist Name Role Phone Unavailable Primary Care Provider Unavailabl e Encounter Details Date Type Department Care Team (Late st Contact Info) Description 11/29/2018 Lab Requisition [facility] Care DermPath Lab [address] [facility], [place] [phone] Viridiana Olivia DO [address] [facility] [address] [place] [address] Social History Tobacco Use Types Packs/Day Years [...] AM CDT) Case Report Dermatopathology Report Case: [id number] Authorizing Provider: Viridiana Olivia DO Collected: 11/28/2018 [...] The specimen consists of a shave measuring [id number]. Jar 0. 2:27 PM T DERMATOPATHOLOGY LABORATORY [...] characteristic determined by the Dermatopathology Laboratory at [facility], directed by Dr. Marixa Hadley. These tests need not be, and therefore are not, approved by the [place] Food and Drug Administration. The tests are used for clinical purposes. Billing Codes Specimen Charges Stain Charges 01515 1 2:27 PM CDT DERMATOPATHOLOGY LABORATORY Embedded Images 2:27 PM CDT DERMATOPATHOLOGY LABORATORY Pathology/Cytolog y TISSUE SPECIMEN FROM SKIN / Unknown 11/28/2018 11/29/2018 7:06 AM CDT Viridiana Olivia DO LAB - PATHOLOGY/C YTOLOGY ORDERABLES DERMATOPATHOLOGY LABORATORY [facility] - Department of Dermatology [address] [place] [address] [address] Floor Lab B [place], [place] [id number] [place] [address] documented in this encounter Visit Diagnoses Not on filedocumented in this encounter
--- OUTSIDE RECORDS SUMMARY | 2024-09-17 13:49 | XMS_ITS | Clinical Summary ---
Author Organization [facility] Address [address] [facility] [place] [address] Care Team Providers Care Mix Technician Name Role Phone Unavailable Primary Care Provider Unavailabl e Source Comments [facility],non-owned Affiliates and Associated Physician Practices is amultiple site organization consisting of ambulatory clinics and hospital sitesin [place], [place], [place] and [place]. This disclosure is being madepursuant to the Care Everywhere program and may not contain all information available regarding this patient. Last updated 18.[facility] Red e App Social History Tobacco Use Types Packs/Day Years [...]
--- OUTSIDE RECORDS SUMMARY | 2024-09-17 13:49 | XMS_ITS | Encounter Summary ---
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 Not on file Not on file documented as of this encounter Plan of Treatment Not on file documented as of this encounter Procedures Procedure Name Priority Date/Time Associated Diagnosis Comments OUTSIDE LAB (SCAN ORDER) 09/05/2024 OUTSIDE LAB (SCAN ORDER) 09/05/2024 documented in this encounter Results * OUTSIDE LAB (SCAN ORDER) (09/05/2024) 09/05/2024 us Doc Med [facility] Scanned SCANNING Final Resu lt * OUTSIDE LAB (SCAN ORDER) (09/05/2024) 09/05/2024 us Doc Med Group Scanned SCANNING Final Resu lt documented in this encounter Visit Diagnoses Not on filedocumented in this encounter Additional Health Concerns Assessment Noted Time PHQ-9 Depression Total Score: 6 08/20/19 23 10:06 AM MACHINE SETTER SHEET METAL documented as of this encounter Care Teams Bar Manager Relationship Specialty Start Date End Date Neva Bentley APNP [address] [place] [address] PCP - General NURSE PRACTITIONER 02/20/19 Angie Ames MD [address] [place] [address] OBGYN 06/04/24 documented as of this encounter
--- OUTSIDE RECORDS SUMMARY | 2024-09-17 13:49 | XMS_ITS | Encounter Summary ---
Author Organization [facility] Address [address] [facility] [place] [address] Care Team Providers Care Bottom Wheeler Name Role Phone Unavailable Primary Care Provider Unavailabl e Encounter Details Date Type Department Care Team (Late st Contact Info) Description 09/27/2020 Lab Requisition [facility] DermPath Lab [address] [facility], [place] [phone] Viridiana Olivia DO [address] [facility] 3 [place] [address] Social History Tobacco Use Types Packs/Day Years [...] Diagnosis Comments DERMATOPATHOLOGY Routine 09/25/2020 3:33 AM UMBRELLA TIPPER documented in this encounter Results * DERMATOPATHOLOGY (09/25/2020 3:33 AM UMBRELLA TIPPER) Case Report Dermatopathology Report Case: [id number] Authorizing Provider: Viridiana Olivia DO Collected: 09/25/2020 03:33 AM Ordering Location: [facility] DermPath Lab Received: 09/27/2020 12:47 PM Pathologist: Robin Hadley MD Specimen: Skin, superior vulva 5:01 PM UMBRELLA TIPPER DERMATOPATHOLOGY LABORATORY Final Diagnosis Specimen A. SKIN, superior vulva: ACROCHORDONS (SOFT FIBROMAS, SKIN TAGS) (L91.8) 5:01 PM UMBRELLA TIPPER DERMATOPATHOLOGY LABORATORY Clinical History ACR vs CONDY. 5:01 PM [facility] Gross Description Specimen A: Received is one formalin filled container labeled with the patient's name and designated superior vulva. The specimen consists of 2 pieces of shave measuring [id number] and 7f0w2hu, bisected Jar 0. 5:01 PM [facility] Microscopic Description Specimen A. SKIN, superior vulva: Sections show multiple polypoid pieces of skin each with a gently folded epidermis surrounding a connective tissue core in which fat and collagen are intermingled. 5:01 PM [facility] Disclaimer An external and internal positive and negative controls are appropriate for the histochemical, immunohistochemical and immunofluorescence stain(s) in this case (if any), except where stated explicitly. The performance characteristics of the stain(s) cited in this report were developed and its performance characteristic determined by the Dermatopathology Laboratory at [facility], directed by Dr. Marixa Hadley. These tests need not be, and therefore are not, approved by the [place] Food and Drug Administration. The tests are used for clinical purposes. Billing Codes Specimen Charges Stain Charges 38172 1 5:01 PM [facility] Embedded Images 5:01 PM [facility] Pathology/Cytolo gy TISSUE SPECIMEN FROM SKIN / Unknown 09/25/2020 3:33 AM UMBRELLA TIPPER 09/27/2020 12:47 PM UMBRELLA TIPPER Viridiana Olivia DO LAB - PATHOLOGY/C YTOLOGY ORDERABLES DERMATOPATHOLOGY LABORATORY [facility] - Department of Dermatology [address], [address] [phone] documented in this encounter Visit Diagnoses Not on filedocumented in this encounter
--- OUTSIDE RECORDS SUMMARY | 2024-09-17 13:49 | XMS_ITS | Referral Summary ---
Author Organization [facility] Address [address] [facility] [place] [address] Care Team Providers Care Salvage Grinder Name Role Phone Unavailable Primary Care Provider Unavailabl e Source Comments [facility],non-owned Affiliates and Associated Physician Practices is amultiple site organization consisting of ambulatory clinics and hospital sitesin [place], [place], [place] and [place]. This disclosure is being madepursuant to the Care Everywhere program and may not contain all information available regarding this patient. Last updated 18.[facility] [employer] Social History Tobacco Use Types Packs/Day Years Used Date Smoking Tobacco: Never Assessed Sex and Gender Information Value Date Recorded Sex Assigned at Not on file Gender Identity Not on file Sexual Orientation Not on file Plan of Treatment Not on file
--- NOTE | 2024-09-17 14:09 | PC.NURSE ---
Dr Ames informed of chest xray results, VS and EKG results. Ok to dc home. Incentive spirometer ordered for patient is use as out patient.
--- OUTSIDE RECORDS SUMMARY | 2024-09-18 12:16 | XMS_ITS | Encounter Summary ---
Author Organization [facility] Address [address] [place] [address] Care Team Providers Care Christian Science Healer Name Role Phone Neva Bentley Primary Care Provider [phone] Angie Ames MD Unavailable [phone] Encounter Details Date Type Department Care Team (Late st Contact Info) Description 06/23/2021 Onavot Message Enc [facility] Medical Group Family & Internal Medicine [id number] [place] [address] Neva Bentley APNP [address] [place] [address] Follow Up/Update Social History Tobacco [...] appt as test ordered was sent there T COUNTER ATTENDANT documented in this encounter Plan of Treatment Not on file documented as of this encounter Visit Diagnoses Not on filedocumented in this encounter Additional Health Concerns Infection Onset Date Last Indicated Resolved Time COVID-19 Rule Out 07/16/2021 07/17/2021 07/23/2021 12:32 AM FRONT COUNTER ATTENDANT COVID-19 Confirmed 07/17/2021 07/17/2021 12:33 AM FRONT COUNTER ATTENDANT COVID-19 Rule Out 10/01/2022 10/01/2022 10/01/2022 2:33 PM FRONT COUNTER ATTENDANT COVID-19 Rule Out 10/01/2022 10/01/2022 10/02/2022 7:32 PM FRONT COUNTER ATTENDANT COVID-19 Rule Out 09/07/2023 09/07/2023 09/07/2023 12:16 PM FRONT COUNTER ATTENDANT COVID-19 Confirmed 09/07/2023 09/07/2023 12:33 AM FRONT COUNTER ATTENDANT Assessment Noted Time PHQ-9 Depression Total Score: 8 03/19/20 21 11:49 AM CDT documented as of this encounter Care Teams Christian Science Healer Relationship Specialty Start Date End Date Neva Bentley APNP [address] [place] [address] PCP - General NURSE PRACTITIONER 02/20/19 Angie Ames MD [address] [address] OBGYN 06/04/24 documented as of this encounter
--- OUTSIDE RECORDS SUMMARY | 2024-09-18 12:17 | XMS_ITS | Clinical Summary ---
Author Organization [facility] Address [facility] [place] [address] Care Team Providers Care District Sales Representative Name Role Phone Neva Bentley Primary Care [...] 05/06/2020 Assessment & Plan (06/03/2020 10:42 AM CEMENT TESTER ASSISTANT): Patient's MRI cervical spine is normal by report. She can continue home exercises as well as [id number] anti-inflammatories on an as-needed basis. Assessment & [...] year. Assessment & Plan (06/03/2020 10:42 AM CEMENT TESTER ASSISTANT): Patient has improvement of her papilledema and [...] on file Legal Sex Female 7:47 PM CEMENT TESTER ASSISTANT Gender Identity Not on file Sexual Orientation [...] patient's age to complete this topic Insurance [employer] OPEN ACCESS R [facility] Care Teams District Sales Representative Relationship Specialty Start Date End Date Neva Bentley PA [address] [place] [address] PCP - General Nurse Practitioner 04/01/20
--- OUTSIDE RECORDS SUMMARY | 2024-09-18 12:17 | XMS_ITS | Referral Summary ---
Author Organization [facility] Address [address] [facility] [place] [address] Care Team Providers Care Assembler Fitter Name Role Phone Unavailable Primary Care Provider Unavailabl e Source Comments [facility],non-owned Affiliates and Associated Physician Practices is amultiple site organization consisting of ambulatory clinics and hospital sitesin [place], [place], [place] and [place]. This disclosure is being madepursuant to the Care Everywhere program and may not contain all information available regarding this patient. Last updated 18.[facility] [employer] Social History Tobacco Use Types Packs/Day Years Used Date Smoking Tobacco: Never Assessed Sex and Gender Information Value Date Recorded Sex Assigned at Not on file Gender Identity Not on file Sexual Orientation Not on file Plan of Treatment Not on file
--- OUTSIDE RECORDS SUMMARY | 2024-09-18 12:17 | XMS_ITS | Encounter Summary ---
Author Organization [facility] Address [address] [place] [address] Care Team Providers Care Leather Tooler Name Role Phone Neva Bentley Primary Care Provider [phone] Angie Ames MD Unavailable [phone] Encounter Details Date Type Department Care Team (Late st Contact Info) Description 07/29/2023 Com[employer] Message Socii [facility] Medical Group Family & Internal Medicine [address] [phone] [facility] Provider Re: Inhaler Social History Tobacco Use [...] Rule Out 09/07/2023 09/07/2023 09/07/2023 12:16 PM R AND D LAB TECHNICIAN COVID-19 Confirmed 09/07/2023 09/07/2023 12:33 AM R AND D LAB TECHNICIAN Assessment Noted Time PHQ-9 Depression Total Score: 6 08/20/19 23 10:06 AM R AND D LAB TECHNICIAN documented as of this encounter Care Teams Leather Tooler Relationship Specialty Start Date End Date Neva Bentley APNP [address] [place] [address] PCP - General NURSE PRACTITIONER 02/20/19 Angie Ames MD [address] [address] OBGYMadina 06/04/24 documented as of this encounter
--- OUTSIDE RECORDS SUMMARY | 2024-09-18 12:17 | XMS_ITS | Clinical Summary ---
Author Organization [facility] Care Team Providers Care Cnc Set Up Operator Name Role Phone Unavailable Primary Care Provider [...]
--- OUTSIDE RECORDS SUMMARY | 2024-09-18 12:17 | XMS_ITS | Encounter Summary ---
Author Organization [facility] Address [address] [place] [address] Care Team Providers Care Expeller Worker Name Role Phone Neva Bentley Primary Care Provider [phone] Angie Ames MD Unavailable [phone] Encounter Details Date Type Department Care Team (Late st Contact Info) Description 10/06/2022 [employer] Message Enc [facility] Medical Group Family & Internal Medicine [address] [phone] [facility] Provider Test results Social History Tobacco [...] Coronavirus/COVID-19? No / Unsure 10/01/2022 1:18 PM VALET CASHIER documented as of this encounter Plan of Treatment Not on file documented as of this encounter Visit Diagnoses Not on filedocumented in this encounter Additional Health Concerns Infection Onset Date Last Indicated Resolved Time COVID-19 Rule Out 09/07/2023 09/07/2023 09/07/2023 12:16 PM VALET CASHIER COVID-19 Confirmed 09/07/2023 09/07/2023 12:33 AM VALET CASHIER Assessment Noted Time PHQ-9 Depression Total Score: 6 08/20/19 23 10:06 AM VALET CASHIER documented as of this encounter Care Teams Expeller Worker Relationship Specialty Start Date End Date Neva Bentley APNP [address] [place] [address] PCP - General NURSE PRACTITIONER 02/20/19 Angie Ames MD [address] [address] RHONDA 06/04/24 documented as of this encounter
--- OUTSIDE RECORDS SUMMARY | 2024-09-18 12:17 | XMS_ITS | Patient Health Summary ---
Author Organization [facility] Address [address] [facility] [place] [address] Care Team Providers Care Life Skills Worker Name Role Phone Unavailable Primary Care Provider Unavailabl e Note from [facility],non-owned Affiliates and Associated Physician Practices is amultiple site organization consisting of ambulatory clinics and hospital sitesin [place], [place], [place] and [place]. This disclosure is being madepursuant to the Care Everywhere program and may not contain all information available regarding this patient. Last updated 18.[facility] Social History Tobacco Use Types Packs/Day Years Used Date Smoking Tobacco: Never Assessed Sex and Gender Information Value Date Recorded Sex Assigned at Not on file Gender Identity Not on file Sexual Orientation Not on file Procedures * DERMATOPATHOLOGY(Performed 09/25/2020) * DERMATOPATHOLOGY(Performed 11/28/2018) Results * DERMATOPATHOLOGY (09/25/2020 3:33 AM DIFFERENTIAL TESTER) Only the most recent of2 resultswithin the time period is included. Case Report Dermatopathology Report Case: [id number] Authorizing Provider: Viridiana Olivia DO Collected: 09/25/2020 03:33 AM Ordering Location: [facility] DermPath Lab Received: 09/27/2020 12:47 PM Pathologist: Robin Hadley MD Specimen: Skin, superior vulva 5:01 PM DIFFERENTIAL TESTER DERMATOPATHOLOGY LABORATORY Final Diagnosis Specimen A. SKIN, superior vulva: ACROCHORDONS (SOFT FIBROMAS, SKIN TAGS) (L91.8) 5:01 PM DIFFERENTIAL TESTER DERMATOPATHOLOGY LABORATORY Clinical History ACR vs CONDY. 5:01 PM DIFFERENTIAL TESTER DERMATOPATHOLOGY LABORATORY Gross Description Specimen A: Received is one formalin filled container labeled with the patient's name and designated superior vulva. The specimen consists of 2 pieces of shave measuring 5r1o3lw and 2x8u7dd, bisected Jar 0. 1 5:01 PM [facility] DERMATOPATHOLOGY LABORATORY Microscopic Description Specimen A. SKIN, superior vulva: Sections show multiple polypoid pieces of skin each with a gently folded epidermis surrounding a connective tissue core in which fat and collagen are intermingled. 1 5:01 PM [facility] DERMATOPATHOLOGY LABORATORY Disclaimer An external and internal positive and negative controls are appropriate for the histochemical, immunohistochemical and immunofluorescence stain(s) in this case (if any), except where stated explicitly. The performance characteristics of the stain(s) cited in this report were developed and its performance characteristic determined by the Dermatopathology Laboratory at [facility], directed by Dr. Marixa Hadley. These tests need not be, and therefore are not, approved by the [place] Food and Drug Administration. The tests are used for clinical purposes. Billing Codes Specimen Charges Stain Charges 21847 1 1 5:01 PM [facility] DERMATOPATHOLOGY LABORATORY Embedded Images 1 5:01 PM [facility] DERMATOPATHOLOGY LABORATORY Pathology/Cytolo gy TISSUE SPECIMEN FROM SKIN / Unknown 09/25/2020 3:33 AM DIFFERENTIAL TESTER 09/27/2020 12:47 PM DIFFERENTIAL TESTER Viridiana Olivia DO LAB - PATHOLOGY/C YTOLOGY ORDERABLES DERMATOPATHOLOGY LABORATORY [facility] - Department of Dermatology [address] [phone]
--- OUTSIDE RECORDS SUMMARY | 2024-09-18 12:17 | XMS_ITS | Encounter Summary ---
Author Organization [facility] Address [address] [facility] [address] Care Team Providers Care Building Performance Specialist Name Role Phone Unavailable Primary Care Provider Unavailabl e Encounter Details Date Type Department Care Team (Late st Contact Info) Description 11/29/2018 Lab Requisition [facility] Care DermPath Lab [address] [facility], [place] [phone] Viridiana Olivia DO [address] [facility] 3L [place] [address] Social History Tobacco Use Types Packs/Day Years [...] AM CDT) Case Report Dermatopathology Report Case: [id number] Authorizing Provider: Viridiana Olivia DO Collected: 11/28/2018 [...] The specimen consists of a shave measuring 6l2k2rl. Jar 0. 2:27 PM T DERMATOPATHOLOGY LABORATORY [...] characteristic determined by the Dermatopathology Laboratory at [facility], directed by Dr. Marixa Hadley. These tests need not be, and therefore are not, approved by the [place] Food and Drug Administration. The tests are used for clinical purposes. Billing Codes Specimen Charges Stain Charges 52973 1 2:27 PM CDT DERMATOPATHOLOGY LABORATORY Embedded Images 2:27 PM CDT DERMATOPATHOLOGY LABORATORY Pathology/Cytolog y TISSUE SPECIMEN FROM SKIN / Unknown 11/28/2018 11/29/2018 7:06 AM CDT Viridiana Olivia DO LAB - PATHOLOGY/C YTOLOGY ORDERABLES DERMATOPATHOLOGY LABORATORY [facility] - Department of Dermatology [address] [place] [address] [address] Floor Lab B [place], [place] [phone] [place] [address] documented in this encounter Visit Diagnoses Not on filedocumented in this encounter
--- OUTSIDE RECORDS SUMMARY | 2024-09-18 12:17 | XMS_ITS | Encounter Summary ---
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
--- OUTSIDE RECORDS SUMMARY | 2024-09-18 12:17 | XMS_ITS | Encounter Summary ---
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 Not on file Not on file documented as of this encounter Plan of Treatment Not on file documented as of this encounter Visit Diagnoses Not on filedocumented in this encounter Additional Health Concerns Assessment Noted Time PHQ-9 Depression Total Score: 6 08/20/19 23 10:06 AM OUTDOOR ADVENTURE GUIDES documented as of this encounter Care Teams Printing Agent Relationship Specialty Start Date End Date Neva Bentley APNP NPI: [id number] [place] [address] PCP - General NURSE PRACTITIONER 02/20/19 Angie Ames MD [address] [address] OBCORRY 06/04/24 documented as of this encounter
--- OUTSIDE RECORDS SUMMARY | 2024-09-18 12:17 | XMS_ITS | Clinical Summary ---
Author Organization [facility] Address [address] [facility] [place] [address] Care Team Providers Care Short Piece Handler Name Role Phone Unavailable Primary Care Provider Unavailabl e Source Comments [facility],non-owned Affiliates and Associated Physician Practices is amultiple site organization consisting of ambulatory clinics and hospital sitesin [place], [place], [place] and [place]. This disclosure is being madepursuant to the Care Everywhere program and may not contain all information available regarding this patient. Last updated 18.[facility] [employer] Social History Tobacco Use Types Packs/Day Years [...]
--- OUTSIDE RECORDS SUMMARY | 2024-09-18 12:17 | XMS_ITS | Clinical Summary ---
Author Organization [facility] Address [facility] [place] [address] Care Team Providers Care Interventionist Name Role Phone Neva Bentley Primary Care Provider [phone] Angie Ames MD Unavailable [phone] Allergies No known active allergies Medications Multiple [...] can continue home exercises as well as bqts-ojm-fhjbiqh anti-inflammatories on an as-needed basis. Pseudotumor cerebri [...] Encounters Date Type Department Care Team Description 09/06/2024 Scan HEALTH INFO SRVCS Scanned, [facility] 09/05/2024 Scan MG HEALTH INFO SRVCS Scanned, Doc [facility] Lab (SCAN) 08/01/2024 Telephone [facility] [address] [address] Kodi Hou MD Results 07/03/2024 7:59 AM ANALYTICAL SCIENTIST - 07/03/2024 11:59 PM ANALYTICAL SCIENTIST Hospital Encounter [facility] Non [place]vasive [place] [address] [place] [address] Kodi Hou MD Discharge Disposition: Home or Self Care (Routine Discharge) 07/03/2024 Travel 06/26/2024 Abstract [facility], [address] [address] Kavya Guevara, POSTBED STITCHER 06/22/2024 Scan MG HEALTH INFO SRVCS Scanned, [...] 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 Not on file Not on file Last Filed Vital Signs Vital Sign Reading Time Taken Comments Blood Pressure 122/62 06/06/2024 2:06 PM ANALYTICAL SCIENTIST Pulse 84 06/06/2024 2:06 PM ANALYTICAL SCIENTIST Temperature 36.9 C (98.4 F) 04/27/2023 9:07 AM CDT Respiratory Rate 16 04/27/2023 9:07 AM CDT Oxygen Saturation 97% 04/27/2023 9:07 AM CDT Inhaled Oxygen Concentration - - Weight 165.6 kg (365 lb) 06/06/2024 2:06 PM ANALYTICAL SCIENTIST Height 170.2 cm (5' 7 ) 06/06/2024 2:06 PM ANALYTICAL SCIENTIST Body Mass Index 57.17 06/06/2024 2:06 PM ANALYTICAL SCIENTIST Plan of Treatment Health Maintenance Due Date [...] Physical 04/27/2024 04/27/2023, 07/03/2021, 05/20/2020 PHQ-2 (Physician [place]) 07/25/2024 DTaP, Tdap and Td Vaccines ( [...] 30 DAYS COMPLETE Routine 07/24/2024 10:36 AM ANALYTICAL SCIENTIST Palpitation USE ECHOCARDIOGRAM Routine 07/03/2024 8: 52 AM ANALYTICAL SCIENTIST NAZARIO (dyspnea on exertion) HEPATITIS C ANTIBODY [...] 30 DAYS COMPLETE (Holter) (07/24/2024 10:36 AM ANALYTICAL SCIENTIST) Narrative [facility] - 07/24/2024 10:36 AM ANALYTICAL SCIENTIST [image] [place], [place] [address] MOBILE CARDIAC TELEMETRY REPORT Patient Name: Trish Gomez : 1995 Performed At: [facility], [place] Interpreting Fish Hatchery Supervisor: Dr. Kodi Hou PCP: HALLEY Luna INDICATION: [...] MD CV VASCULAR ORDERABLES Final R esult [facility] * USE ECHOCARDIOGRAM (07/03/2024 8:52 AM ANALYTICAL SCIENTIST) Anatomical Region Laterality Modality Cardiac Echocardiogram 07/03/2024 9:20 AM ANALYTICAL SCIENTIST Narrative 07/04/2024 12:54 PM ANALYTICAL SCIENTIST Echocardiography Report Pat.Name: TRISH GOMEZ Pat.ID: [id number] .Date: 07/03/2024 Refer.: [id number] ALEXA Segura EWDPROV EWDPROV Exam Time: 9:20:00 [...] 37.3 mm Right and Left 0.784 Major [place] 81.7 mm Ventricular Septum IVSd 1.32 cm [...] 07/04/2024 Echocardiography Report Pat.Name: TRISH GOMEZ Pat.ID: [id number] .Date: 07/03/2024 Refer.: [id number] ALEXA Segura EWDPROV EWDPROV Exam Time: 9:20:00 AM Study Type:ECHO WITH CARDIAC DOPPLER COMP Height: 67 in Weight: 365 lb BSA: 2.61 m2 Age: 10 1995,28Y Sex: F BP: 114/52 HR: 78 bpm Sonogrphr: Guerita Vázquez, AGUILAR Pat. Stat.:Outpatient Reason for Study:Dyspnea on exertion [...] 37.3 mm Right and Left 0.784 Major [place] 81.7 mm Ventricular Septum IVSd 1.32 cm [...] a test for HCV RNA (test code 59499) is suggested. For additional information please refer to http://education.[employer]/faq/EFS59n7 (This link is being provided for informational/ educational purposes only.) 05/22/2020 12:0 0 PM CDT 05/22/2020 12:03 PM CDT [facility] Final Resul t [facility] [address] [phone] from Last 3 Months or Most Recently Relevant to Health Maintenance Insurance Care Teams Interventionist Relationship Specialty Start Date End Date Neva Bentley APNP [address] [place] [address] PCP - General NURSE PRACTITIONER 02/20/19 Angie Ames MD [address] [address] OBGYN 06/04/24
--- OUTSIDE RECORDS SUMMARY | 2024-09-18 12:17 | XMS_ITS | Clinical Summary ---
Author Organization [facility] Address [address] [place] [phone] Phone Care Team Providers Care Mining Plant Operator Name Role Phone Unavailable Primary Care Provider Unavailabl e Encounters Date Type Department Care Team Description 09/11/2024 External Device Data STL ABSTRACTION Provider, Abstract 08/21/2024 External Device Data ST[facility] ABSTRACTION Provider, Abstract 08/15/2024 External Device Data [facility] ABSTRACTION Provider, Abstract 08/15/2024 External Device Data [facility] ABSTRACTION Provider, Abstract 08/09/2024 7:22 AM INTERNAL MEDICINE VETERINARY TECHNICIAN - 08/09/2024 11:59 PM INTERNAL MEDICINE VETERINARY TECHNICIAN Hospital Encounter [facility] [address] [place] [address] Mustapha Coombs MD Discharge Disposition: Home or Self Care 08/08/2024 External Device Data STL ABSTRACTION Provider, Abstract 07/12/2024 9:41 AM INTERNAL MEDICINE VETERINARY TECHNICIAN - 07/12/2024 11:59 PM INTERNAL MEDICINE VETERINARY TECHNICIAN Hospital Encounter [facility] [address] [place] [address] Mustapha Coombs MD Discharge Disposition: Home or [...] UP PER FETUS Routine 08/09/2024 7:46 AM INTERNAL MEDICINE VETERINARY TECHNICIAN Obesity affecting in third trimester, unspecified obesity type US OB FOLLOW UP PER FETUS Routine 07/12/2024 10:05 AM INTERNAL MEDICINE VETERINARY TECHNICIAN Obesity affecting in third trimester, unspecified obesity type from Last 3 Months Results * US OB FOLLOW UP PER FETUS (08/09/2024 7:46 AM INTERNAL MEDICINE VETERINARY TECHNICIAN) Only the most recent of2 resultswithin the time period is included. Anatomical Region Laterality Modality Pelvis Ultrasound 08/09/2024 7:25 AM INTERNAL MEDICINE VETERINARY TECHNICIAN Narrative 08/09/2024 8:15 AM INTERNAL MEDICINE VETERINARY TECHNICIAN STL FOLLOW UP ----- Pat. Name: TRISH GOMEZ Study Date: 08/09/2024 7:25am Pat. NO: [id number] Referring MD: AMY LINDO MD Site: [facility] Setter: Rosita Feng RDMS : 1995 Age: 29 ----- INDICATION ----- Screening Follow-Up Maternal Obesity (BMI>40) Complicating CODING ----- Diagnoses Z3A.36: Weeks of gestation O99.213: Obesity complicating Z36.2: Encounter for other screening follow-up Procedures 55262: Ultrasound, uterus, real time with image documentation, [...] GA 36 w + 1 d Assigned KHADRA: 09/05/2024 BIOMETRY ----- BPD 90.7 mm 36w 5d 76% Hadlock OFD 119.2 mm -/- >99% Liset HC 336.1 mm 38w 3d 77% Hadlock AC 336.0 mm 37w 4d 90% Hadlock Femur 70.6 mm 36w 1d 47% Hadlock HC / AC 1.00 37% Nicolaides Weight Calculation: EFW 3,148 g 37w 4d 79% Hadlock EFW (lb,oz) 6 lb 15 oz EFW by Hadlock ([id number]) Head / Face / Neck Biometry: Front End Architect 3.1 mm Extremities / Bony Struc Biometry: [...] and date of were verified by the technical support coordinator prior to the exam IMPRESSION ----- -Single [...] Pat. Name:Mina GOMEZ Date:08/09/2024 7:25am Pat. NO: [id number] MD:AMY LINDO MD [facility]Ros[facility] Feng RDMS :1995Age:29 ----- INDICATION ----- Screening Follow-Up Maternal Obesity (BMI>40) Complicating CODING ----- Diagnoses Z3A.36: Weeks of gestation O99.213: Obesity complicating Z36.2: Encounter for other screeningfollow-up Procedures 06923: Ultrasound, uterus, real time withimage documentation, follow up, transabdominal approach per fetus HISTORY ----- OB History 2. Para 1 MATERNAL ASSESSMENT ----- Physical Exam Weight 154 kg. BMI 53.25 kg/m METHOD ----- Transabdominal ultrasound examination ----- Thurman . Number of fetuses: 1 DATING ----- GA by prior [id number] w + 1 d KHADAR by prior [...] 6 lb 15 oz EFW by Hadlock ([id number]) Head / Face / Neck Biometry: Front End Architect 3.1mm Extremities / Bony Struc Biometry: FL [...] and date of were verified by the technical support coordinator prior tothe exam IMPRESSION ----- -Single living [...] - Final from Last 3 Months Insurance [facility] CHOICE [id number] [facility] Address: [facility] [address] [place] [address]
--- OUTSIDE RECORDS SUMMARY | 2024-09-18 12:17 | XMS_ITS | Referral Summary ---
Author Organization [facility] Address [facility] [place] [address] Care Team Providers Care Transport Specialist Name Role Phone Neva Bentley Primary Care [...] 05/06/2020 Assessment & Plan (06/03/2020 10:42 AM TOPOLOGY PROFESSOR): Patient's MRI cervical spine is normal by report. She can continue home exercises as well as aeor-qqs-rwiemys anti-inflammatories on an as-needed basis. Assessment & [...] year. Assessment & Plan (06/03/2020 10:42 AM TOPOLOGY PROFESSOR): Patient has improvement of her papilledema and [...] on file Legal Sex Female 7:47 PM TOPOLOGY PROFESSOR Gender Identity Not on file Sexual Orientation [...] Plan of Treatment Not on file Insurance [facility] OPEN [facility]ESS [facility] H[facility]/PPO Address: [address] [address] [place] [address] Care Teams Transport Specialist Relationship Specialty Start Date End Date Neva Bentley PA [address] [place] [address] PCP - General Nurse Practitioner 04/01/20
--- OUTSIDE RECORDS SUMMARY | 2024-09-18 12:17 | XMS_ITS | Encounter Summary ---
Author Organization [facility] Address [address] [facility] [place] [address] Care Team Providers Care Foundation Digger Name Role Phone Unavailable Primary Care Provider Unavailabl e Encounter Details Date Type Department Care Team (Late st Contact Info) Description 09/27/2020 Lab Requisition [facility] [address] [facility] [place] [phone] Viridiana Olivia DO [address] [facility] [address] [place] [address] Social History Tobacco Use Types Packs/Day Years [...] Diagnosis Comments DERMATOPATHOLOGY Routine 09/25/2020 3:33 AM IN PROCESSING INSTRUCTOR documented in this encounter Results * DERMATOPATHOLOGY (09/25/2020 3:33 AM IN PROCESSING INSTRUCTOR) Case Report Dermatopathology Report Case: [id number] Authorizing Provider: Viridiana Olivia DO Collected: 09/25/2020 03:33 AM Ordering Location: [facility] Received: 09/27/2020 12:47 PM Pathologist: Robin Hadley MD Specimen: Skin, superior vulva 5:01 PM IN PROCESSING INSTRUCTOR DERMATOPATHOLOGY LABORATORY Final Diagnosis Specimen A. SKIN, superior vulva: ACROCHORDONS (SOFT FIBROMAS, SKIN TAGS) (L91.8) 5:01 PM IN PROCESSING INSTRUCTOR DERMATOPATHOLOGY LABORATORY Clinical History ACR vs CONDY. 5:01 PM [facility] DERMATOPATHOLOGY LABORATORY Gross Description Specimen A: Received is one formalin filled container labeled with the patient's name and designated superior vulva. The specimen consists of 2 pieces of shave measuring [id number] and [id number], bisected Jar 0. 5:01 PM [facility] DERMATOPATHOLOGY LABORATORY Microscopic Description Specimen A. SKIN, superior vulva: Sections show multiple polypoid pieces of skin each with a gently folded epidermis surrounding a connective tissue core in which fat and collagen are intermingled. 5:01 PM [facility] DERMATOPATHOLOGY LABORATORY Disclaimer An external and internal positive and negative controls are appropriate for the histochemical, immunohistochemical and immunofluorescence stain(s) in this case (if any), except where stated explicitly. The performance characteristics of the stain(s) cited in this report were developed and its performance characteristic determined by the Dermatopathology Laboratory at [facility], directed by Dr. Marixa Hadley. These tests need not be, and therefore are not, approved by the [place] Food and Drug Administration. The tests are used for clinical purposes. Billing Codes Specimen Charges Stain Charges 95577 1 5:01 PM [facility] DERMATOPATHOLOGY LABORATORY Embedded Images 5:01 PM [facility] DERMATOPATHOLOGY LABORATORY Pathology/Cytolo gy TISSUE SPECIMEN FROM SKIN / Unknown 09/25/2020 3:33 AM IN PROCESSING INSTRUCTOR 09/27/2020 12:47 PM IN PROCESSING INSTRUCTOR Viridiana Olivia DO LAB - PATHOLOGY/C YTOLOGY ORDERABLES DERMATOPATHOLOGY LABORATORY [facility] - Department of Dermatology [address], [address] [phone] documented in this encounter Visit Diagnoses Not on filedocumented in this encounter
== END 2024-09-17 14:25 | disposition home or self-care (01) ==
LOC: ANHOBOP 09-18 10:29
PROVIDERS: PCP Registered Nurse; Visit Provider Obstetrics & Gynecology Gynecology
DX: R06.02 Shortness of breath (principal); R00.2 Palpitations
CPT/HCPCS: 36415; 71046; 80053; 84550; 85025; 93005; G0378; G0379